=== PATIENT | female | born 2000 | race African-American/Black ===

== ENCOUNTER → 2019-10-18 12:48 | Emergency (ER) | payer SELFPAY ==
--- NOTE | ~2019-10-18 | CT_ITS ---
EXAMINATION: CT soft tissue neck w con DATE: 10/18/2019 13:59 INDICATION: Neck pain and swelling. Injury. TECHNIQUE: Computed tomography (CT) of the neck was performed with 75 mL Omnipaque-350 intravenous co ntrast. Automated exposure control and iterative reconstruction technique were employed. The dose-js gth product was 644.59 mGy-cm. COMPARISON: None FINDINGS: There are no pathologically enlarged lymph nodes. The neck arteries are normal. The pharyng eal mucosal space and larynx are normal. There is mild mucosal thickening in the paranasal sinuses. T here are carious lesions of teeth 1, 15, 16, and 32. IMPRESSION: 1. Dental disease. Reviewed, dictated and finalized at location A. IMPRESSION: 1. Dental disease.
[2019-10-18 12:54] VITALS: BP 137/80; PULSE 89; RESP 16; TEMP 36.3; O2SAT 98
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
[2019-10-18 13:55] LABS: Estimated Glomerular Filt Rate > 60
[2019-10-18] MEDS: IBUPROFEN 600 MG TABLET PO (14:55)
== END | disposition home or self-care (01) ==
PROVIDERS: Emergency Provider Emergency Medicine
DX: S10.93XA Contusion of unspecified part of neck, initial encounter (principal); K02.9 Dental caries, unspecified; V68.6XXA Passenger in heavy transport vehicle injured in noncollision transport accident in traffic accident, initial encounter
CPT/HCPCS: 70491; 99284; A9270; Q9967

== ENCOUNTER 2020-01-31 09:45 | Emergency (ER) | payer OTHER, SELFPAY ==
--- NOTE | ~2020-01-31 | XR_ITS ---
EXAMINATION: XR chest 1V portable DATE: 01/31/2020 10:33 INDICATION: Pneumonia. TECHNIQUE: A single frontal view of the chest was obtained. COMPARISON: None. FINDINGS: Sensitivity is decreased by obesity. The chest demonstrates clear lungs without pneumonia, pleural effusion, or pneumothorax. The heart size is normal. IMPRESSION: 1. No acute cardiopulmonary disease. Reviewed, dictated and finalized at location A. HEMMER
[2020-01-31 10:05] VITALS: BP 128/84; PULSE 99; RESP 14; TEMP 37; O2SAT 99
--- NOTE | 2020-01-31 10:54 | ED.GENADULT ---
HPI - General Adult General Chief complaint: Upper Respiratory Infection Stated complaint: head congestion, covid exposure Time Seen by Provider: 01/31/20 09:55 Source: patient Mode of arrival: ambulatory Limitations: no limitations History of Present Illness HPI narrative: Patient presents with chief complaint of sinus congestion over the past 2 to 3 days. Patient states yesterday she was exposed to a family member who tested positive for Covid. Patient states that she is concerned that she has Covid as well. Patient denies fever, chills, nausea, vomiting, shortness of breath, chest pain. Patient denies any other symptoms. Related Data Home Medications Medication Instructions Recorded Confirmed No Home Medications 01/31/20 01/31/20 Allergies Allergy/AdvReac Type Severity Reaction Status Date / Time No Known Allergies Allergy Verified 10/18/19 12:53 Review of Systems Review of Systems: Narrative: CONSTITUTIONAL: Denies fever, chills, or sweats. EYES: Denies visual changes, redness, or discharge. ENT: Reports congestion denies rhinorrhea, sore throat, or otalgia. CARDIOVASCULAR: Denies chest pain, palpitations, or edema. RESPIRATORY: Denies cough or dyspnea. GASTROINTESTINAL: Denies abdominal pain, nausea, vomiting, or diarrhea. GENITOURINARY: Denies dysuria or hematuria. SKIN: Denies rash or itching. MUSCULOSKELETAL: Denies back pain, joint pain, or myalgia. NEUROLOGIC: Denies headache, numbness, dizziness, or weakness. PSYCHIATRIC: Denies anxiety or depression. PMFSH Past Medical History Medical History (Updated 01/31/20 @ 11:39 by Fely Mallory PA-C) Patient denies significant medical history Social History Social History (Updated 10/18/19 @ 13:05 by Harshad Pascal DO) Smoking status: Never smoker Exam Narrative: Exam Narrative: GENERAL: Well-appearing, well-nourished, and in no acute distress. Morbidly obese. HEAD: Normocephalic, atraumatic. EYES: PERRLA and EOMI. NECK: Supple. No adenopathy or masses. Range of motion intact CHEST: Clear to auscultation. No respiratory distress. No wheezes rales or rhonchi HEART: Regular rate and rhythm. EXTREMITIES: Normal range of motion. No edema. SKIN: Warm, dry, no rash. NEURO: No focal deficits. Alert and oriented x3. PSYCH: Normal mood and affect. Course Vital Signs Vital signs: Vital Signs Temperature 98.6 F 01/31/20 10:05 Pulse Rate 99 01/31/20 10:05 Respiratory Rate 14 01/31/20 10:05 Blood Pressure 128/84 01/31/20 10:05 Pulse Oximetry 99 01/31/20 10:05 Temperature 98.6 F 01/31/20 10:05 Pulse Rate 99 01/31/20 10:05 Respiratory Rate 14 01/31/20 10:05 Blood Pressure 128/84 01/31/20 10:05 Pulse Oximetry 99 01/31/20 10:05 Medical Decision Making MDM Narrative Medical decision making narrative: Discussed with patient that if she is already been exposed in the past few days she still needs to quarantine until released by the health department as even if her Covid test is negative from today she can still develop symptoms later. Patient verbalized understanding agreement plan denies any other questions or concerns. Differential Diagnosis Differential Diagnosis: Covid, pneumonia, sinusitis, influenza Vital Signs Vital Signs: Vital Signs Temperature 98.6 F 01/31/20 10:05 Pulse Rate 99 01/31/20 10:05 Respiratory Rate 14 01/31/20 10:05 Blood Pressure 128/84 01/31/20 10:05 Pulse Oximetry 99 01/31/20 10:05 Temperature 98.6 F 01/31/20 10:05 Pulse Rate 99 01/31/20 10:05 Respiratory Rate 14 01/31/20 10:05 Blood Pressure 128/84 01/31/20 10:05 Pulse Oximetry 99 01/31/20 10:05 Lab Data Labs: Lab Results 01/31/20 Range/Units 10:14 SARS-CoV-2 RNA (RT-PCR) Pending [facility] Bedside Result Negative Reference Range: Negative Influenza A Screen Negative
[2020-01-31 11:40] VITALS: BP 127/64; PULSE 72; RESP 12; O2SAT 99
[2020-01-31 18:06] LABS: SARS-CoV-2 RNA PCR Positive
== END 2020-01-31 11:50 | disposition home or self-care (01) ==
PROVIDERS: Physician Assistant; Emergency Provider Emergency Medicine
DX: U07.1 COVID-19 (principal)
CPT/HCPCS: 71045; 81025; 87635; 87804; 99283; C9803; U0003

== ENCOUNTER 2020-11-25 20:12 | Emergency (ER) | payer SELFPAY ==
--- NOTE | ~2020-11-25 | XR_ITS ---
EXAMINATION: XR knee RT 3V DATE: 11/25/2020 21:19 INDICATION: Right knee injury and pain. TECHNIQUE: 3 views of right knee on 4 radiographs were obtained. COMPARISON: None. FINDINGS: Bone alignment is normal. No fracture. There is mild tricompartmental osteoarthritis charac terized by tiny marginal osteophytes. No knee joint effusion. IMPRESSION: 1. Mild right knee osteoarthritis. Reviewed, dictated and finalized at location A.
[2020-11-25 20:57] VITALS: BP 122/72; PULSE 84; RESP 18; TEMP 36.6; O2SAT 100
--- NOTE | 2020-11-25 21:36 | ED.LOWEXIN ---
HPI - Extremity Injury (Lower) General Chief Complaint: Extremity Injury, Lower Stated Complaint: leg pain Time Seen by Provider: 11/25/20 21:20 Source: RN notes reviewed History of Present Illness HPI Narrative: Patient presents emergency department from home for right knee pain. Patient states she works [employer] last night struck her right knee on a cabinet [place] she states that since that time she is had pain in her right knee is worse with bending the knee and standing on the knee she states it is associated with tingling down into her left pinky toe she denies any pain in the ankle or the hip states she not taking medication for pain denies any other symptoms at this time Related Data Allergies Allergy/AdvReac Type Severity Reaction Status Date / Time No Known Allergies Allergy Verified 10/18/19 12:53 Review of Systems Review of Systems: Gen.: Denies fevers or chills Musculoskeletal: See HPI Neuro: Denies numbness, tingling, weakness Skin: Denies rash Endo: Denies DM PMFSH Past Medical History Medical History Patient denies significant medical history Social History Social History Smoking status: Never smoker Exam Narrative: APPEARANCE: No acute distress, nontoxic, resting in bed Eyes: EOMI HEENT: Normocephalic, atraumatic, RESPIRATORY: No respiratory distress MUSCULOSKELETAl: Tender palpation of the right anterior lateral knee no swelling or ecchymosis pain with flexion of the greater than 45 degrees no tenderness of the right ankle or hip neurovascular intact NEURO: Awake and alert. Following commands, speech normal, no focal deficits SKIN:: Warm, dry. Normal Color no rash or lesions Course Course Emergency Course: Discussed with patient results of workup and diagnosis. Discussed need for follow-up with primary care, proper use of medication, and reasons to return to the emergency department. Patient understands and agrees to current treatment plan Vital Signs Vital signs: Vital Signs Temperature 97.8 F 11/25/20 20:57 Pulse Rate 84 11/25/20 20:57 Respiratory Rate 18 11/25/20 20:57 Blood Pressure 122/72 11/25/20 20:57 Pulse Oximetry 100 11/25/20 20:57 Temperature 97.8 F 11/25/20 20:57 Pulse Rate 84 11/25/20 20:57 Respiratory Rate 18 11/25/20 20:57 Blood Pressure 122/72 11/25/20 20:57 Pulse Oximetry 100 11/25/20 20:57 MDM - Extremity Injury (Lower) Imaging Data Radiologist's impression: ITS Impressions Knee X-Ray 11/25/20 21:21 IMPRESSION: 1. Mild right knee osteoarthritis. Discharge Plan Discharge Clinical Impression: Contusion of knee, right Patient Disposition: Home, Self-Care Condition: Stable Instructions: Antibiotic Form, Contusion in Adults (ED) Additional Instructions: Return for increasing pain numbness or tingling in the extremities or any other symptoms of concern Prescriptions: New ibuprofen [IBU] 600 mg tablet 600 mg PO Q6H PRN (Reason: pain) Qty: 20 RF: 0 Follow-up/Referrals: PHYSICIAN,SURGICAL DRESSING MAKER [Primary Care Provider] - Laz Abdi MD [Physician] - (Follow-up in 1 to 2 days for further orthopedic treatment and evaluation) Time of Disposition: 21:40
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
== END 2020-11-25 22:01 | disposition home or self-care (01) ==
LOC: ANHED 21:50
PROVIDERS: Emergency Provider Emergency Medicine
DX: S80.01XA Contusion of right knee, initial encounter (principal); W22.09XA Striking against other stationary object, initial encounter
CPT/HCPCS: 73562; 99283

== ENCOUNTER 2021-02-17 11:45 | Emergency (ER) | payer SELFPAY ==
[2021-02-17 12:07] VITALS: BP 120/51; PULSE 112; RESP 17; TEMP 36.8; O2SAT 98
--- NOTE | 2021-02-17 12:44 | ED.URI ---
HPI - URI/Sore Throat General Chief Complaint: Upper Respiratory Infection <Razia Painter PA-C - Last Filed: 02/17/21 13:04> Stated Complaint: le, nasal congestion, diarrhea <CARINE Turner Last Filed: 02/17/21 13:04> Time Seen by Provider: 02/17/21 12:25 <CARINE Turner Last Filed: 02/17/21 13:04> Source: patient <CARINE Turner Last Filed: 02/17/21 13:04> Mode of arrival: ambulatory <CARINE Turner Last Filed: 02/17/21 13:04> Limitations: no limitations <CARINE Turner Last Filed: 02/17/21 13:04> History of Present Illness HPI Narrative: This is a 20 year old female that presents to the ER for cold symptoms noted over the last 3 days. Reporting chills, cough, congestion, sore throat. She recently was exposed to COVID. She is COVID vaccinated. Denies fever or shortness of breath. <CARINE Turner Last Filed: 02/17/21 13:04> Related Data Allergies/Adverse Reactions: Allergies Allergy/AdvReac Type Severity Reaction Status Date / Time No Known Allergies Allergy Verified 02/17/21 12:10 <CARINE Turner Last Filed: 02/17/21 13:04> Review of Systems Review of Systems: CONSTITUTIONAL: Denies fever ENT: Reports rhinorrhea, congestion, sore throat RESPIRATORY: Reports cough. Denies dyspnea. <CARINE Turner Last Filed: 02/17/21 13:04> All systems reviewed & are unremarkable except as noted in HPI and below <CARINE Turner Last Filed: 02/17/21 13:04> PMFSH Past Medical History Medical History: Medical History Patient denies significant medical history <CARINE Turner Last Filed: 02/17/21 13:04> Social History Social History: Social History Smoking status: Never smoker <Razia Painter PA-C - Last Filed: 02/17/21 13:04> Exam Narrative: GENERAL: Well-appearing, well-nourished, and in no acute distress. HEAD: Normocephalic, atraumatic. EYES: EOMI. ENT: Nares clear, no rhinorrhea or epistaxis. Mucous membranes moist. Oropharynx without tonsillar hypertrophy exudate or other lesions. Bilateral TMs pearly ardon non-bulging NECK: Supple. No adenopathy or masses. CHEST: Clear to auscultation. No respiratory distress. No wheezes rales or rhonchi HEART: Regular rate and rhythm. No murmur heard. Normal peripheral pulses. EXTREMITIES: Normal range of motion. No edema. SKIN: Warm, dry, no rash. NEURO: No focal deficits. Alert and oriented x3. PSYCH: Normal mood and affect <Razia Painter PA-C - Last Filed: 02/17/21 13:04> Course Vital Signs Vital signs: Vital Signs Temperature 36.8 C 02/17/21 12:07 Pulse Rate 112 H 02/17/21 12:07 Respiratory Rate 17 02/17/21 12:07 Blood Pressure 120/51 L 02/17/21 12:07 Pulse Oximetry 98 02/17/21 12:07 Temperature 36.8 C 02/17/21 12:07 Pulse Rate 72 02/17/21 13:16 Respiratory Rate 16 02/17/21 13:16 Blood Pressure 138/78 02/17/21 13:16 Pulse Oximetry 99 02/17/21 13:16 <Razia Painter PA-C - Last Filed: 02/17/21 13:04> MDM - URI/Sore Throat MDM Narrative Medical decision making narrative: Patient presents emergency department for cold symptoms present over the last couple of days. Reports exposure to Covid. She is vaccinated. Oxygen saturation is normal on room air. Lungs are clear on exam. Influenza screen is negative. SARS-CoV-2 was sent. Patient was instructed on continued care of viral infection. She is to follow-up with primary care doctor. She was given warnings to return to the ER <Razia Painter PA-C - Last Filed: 02/17/21 13:04> Lab Data Attestation: I reviewed the patient's lab results. <Razia Painter PA-C - Last Filed: 02/17/21 13:04> Labs: Lab Results 02/17/21 Range/Units 12:32 SARS-CoV-2 RNA (RT-PCR) Pending Influenza A
[2021-02-17 13:16] VITALS: BP 138/78; PULSE 72; RESP 16; O2SAT 99
[2021-02-17 21:22] LABS: SARS-CoV-2 RNA PCR Positive
== END 2021-02-17 13:17 | disposition home or self-care (01) ==
PROVIDERS: Physician Assistant; Emergency Provider Emergency Medicine
DX: U07.1 COVID-19 (principal)
CPT/HCPCS: 87804; 99283; C9803; U0003; U0005

== ENCOUNTER 2021-11-04 21:07 | Emergency (ER) | payer OTHER, MEDICAID, SELFPAY ==
--- NOTE | ~2021-11-04 | CT_ITS ---
EXAMINATION: CT lumbar spine wo con DATE: 11/04/2021 23:09 INDICATION: Low back pain. Injury. TECHNIQUE: Computed tomography (CT) of the lumbar spine was performed without intravenous contrast. A utomated exposure control and iterative reconstruction technique were employed. The dose-length produ ct was 1436.52 mGy-cm. COMPARISON: None FINDINGS: There is 3 degrees dextrocurvature of thoracolumbar spine. Vertebral body heights are ruben l. Intervertebral disc heights are normal. The following disc levels are specifically discussed: L1-L2: The disc does not extend beyond the endplate margin. There is moderate bilateral facet joint o steoarthritis. There is no neural foraminal stenosis. There is no central canal stenosis. L2-L3: The disc does not extend beyond the endplate margin. There is mild bilateral facet joint osteo arthritis. There is no neural foraminal stenosis. There is no central canal stenosis. L3-L4: The disc does not extend beyond the endplate margin. There is mild bilateral facet joint osteo arthritis. There is no neural foraminal stenosis. There is no central canal stenosis. L4-L5: The disc does not extend beyond the endplate margin. There is mild bilateral facet joint osteo arthritis. There is no neural foraminal stenosis. There is no central canal stenosis. L5-S1: There is a left foraminal protrusion. There is mild bilateral facet joint osteoarthritis. Ther e is mild left neural foraminal stenosis. There is no central canal stenosis. IMPRESSION: 1. Mild lumbar spondylosis. Reviewed, dictated and finalized at location A. IMPRESSION: 1. Mild lumbar spondylosis.
[2021-11-04 21:24] VITALS: BP 122/64; PULSE 89; RESP 16; TEMP 36.6; O2SAT 99
[2021-11-04 22:04] VITALS: BP 134/78; PULSE 96; RESP 20; O2SAT 100
[2021-11-04 22:39] LABS: Basophils Percent Auto 0.2 % (0.2-1.2); Eosinophils Absolute Auto 0.1 K/mm3 (0-0.3); Eosinophils Percent Auto 2.8 % (0-4.4); Hematocrit 38.7 % (37.0-47.0); Hemoglobin 12.8 g/dL (12.0-15.0); Immature Granulocyte Absolute 0.01 K/mm3 (0.00-0.031); Immature Granulocyte Percent A 0.2 % (0-0.5); Lymphocytes Absolute Auto 2.36 K/mm3 (0.9-3.2); Lymphocytes Percent Auto 50.5 % (18.3-44.2); Mean Corpuscular HGB Conc 33.1 g/dl (32-36); Mean Corpuscular Volume 87.6 fl (80-100); Mean Platelet Volume 10.3 fl (7.4-10.4); Monocytes Absolute Auto 0.5 K/mm3 (0.1-0.6); Monocytes Percent Auto 9.6 % (2.6-8.5); Neutrophils Absolute Auto 1.7 K/mm3 (1.3-6.7); Neutrophils Percent Auto 36.7 % (45.5-73.1); Platelet Count Result 240 k/mm3 (150-375); Red Blood Count 4.42 M/mm3 (4.2-5.4); Red Cell Distribution Width 12.7 % (11.5-14.5); White Blood Count 4.7 K/mm3 (4.5-10.0)
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
[2021-11-04 22:48] LABS: Anion Gap 13 mmol/L (8-16); Blood Urea Nitrogen 9 mg/dL (7-17); Calcium 8.2 mg/dL (8.4-10.2); Carbon Dioxide 26 mmol/L (22-30); Chloride 102 mmol/L (98-107); Estimated CRCL calculation 171 ml/min; Estimated Glomerular Filt Rate > 60; Glucose 116 mg/dL (65-110); Potassium 3.4 mmol/L (3.4-5.0); Sodium 141 mmol/L (137-145)
[2021-11-04] MEDS: ACETAMINOPHEN 500 MG TABLET 1000 MG PO (22:48)
[2021-11-04] MEDS: diazePAM INJ (*CRX) 10 MG/2 ML SYRINGE 5 MG IM (22:49)
[2021-11-04 22:50] LABS: INR 1.1; Prothrombin Time 13.4 Seconds (11.1-14.7)
[2021-11-04 22:51] LABS: Partial Thromboplastin Time 30.7 SECONDS (22.3-36.8)
[2021-11-05 00:38] LABS: Creatine Kinase 468 U/L (30-135)
[2021-11-05] MEDS: SODIUM CHLORIDE 0.9% IV 1,000 ML 999 ML IV CONT (01:08)
[2021-11-05 01:11] LABS: Appearance Urine Slightly Cloudy (Clear); Bilirubin Urine Negative (Negative); Blood Urine 1+ (Negative); Color Urine Yellow (Yellow); Glucose Urine UA Negative (Negative); Ketones Urine Negative (Negative); Leukocyte Esterase Ur Negative LEU/UL (Negative); Nitrate Urine Negative (Negative); Protein Urine Trace mg/dL (Negative); Specific Grav Ur >= 1.030 (1.001-1.035); Urobilinogen Urine 0.2 mg/dL (<2.0)
[2021-11-05 01:21] LABS: Bacteria Urine Trace /hpf; Calcium Oxalate Crystals Urine Present /hpf; Mucus Urine Heavy /lpf; RBC Urine 21-50 /hpf (0-2); Squamous Epithelial Cell Urine Many /hpf (Few)
[2021-11-05 01:22] LABS: Add Urine Microscopic? YES
[2021-11-05] MEDS: ENOXAPARIN 120 MG/0.8 ML SYRINGE SUB-Q (02:13)
[2021-11-05] MEDS: ENOXAPARIN 30 MG/0.3 ML SYRINGE SUB-Q (02:14)
== END 2021-11-05 02:10 | disposition home or self-care (01) ==
PROVIDERS: Physician Assistant; Emergency Provider General Practice
DX: M79.89 Other specified soft tissue disorders (principal); M54.50 Low back pain, unspecified
CPT/HCPCS: 36415; 72131; 80048; 81001; 81025; 82550; 85025; 85610; 85730; 87086; 87088; 96360; 96372; 99284; A9270; J1650; J3360; J7030

== ENCOUNTER 2021-11-06 16:53 | Outpatient (CLI) | payer MEDICAID, SELFPAY ==
--- NOTE | ~2021-11-06 | US_ITS ---
EXAMINATION:US venous doppler LE BI INDICATION:Leg edema TECHNIQUE: Multiple grayscale, color flow and Doppler images of the right and left lower extremity de ep venous systems were obtained and reviewed. COMPARISON:No prior studies for comparison. FINDINGS: The common femoral, superficial femoral and popliteal veins demonstrate normal respiratory variation, augmentation and compressibility. Color flow is also seen within the posterior tibial, pe roneal, greater saphenous and profunda veins. IMPRESSION: 1: No lower extremity deep venous thrombosis. Reviewed, dictated and finalized at location A.
== END 2021-11-06 16:54 | disposition home or self-care (01) ==
PROVIDERS: Visit Provider Family Medicine
DX: M79.89 Other specified soft tissue disorders (principal)
CPT/HCPCS: 93970

== ENCOUNTER 2022-06-29 11:49 | Emergency (ER) | payer OTHER, SELFPAY ==
--- NOTE | ~2022-06-29 | XR_ITS ---
EXAMINATION: XR chest 2V DATE: 06/29/2022 12:27 INDICATION: Chest tightness. TECHNIQUE: Frontal and lateral views of the chest were obtained on 3 radiographs. COMPARISON: Chest single view 01/31/2020 FINDINGS: Sensitivity is decreased by obesity. There is no pneumonia, pleural effusion, or pneumothor ax. The heart size is normal. IMPRESSION: 1. No acute cardiopulmonary disease. Reviewed, dictated and finalized at location A.
[2022-06-29 11:48] VITALS: BP 130/75; PULSE 75; RESP 16; TEMP 36.6; O2SAT 94
--- NOTE | 2022-06-29 11:53 | ECG_ITS ---
Measurements Intervals [place] Rate: 67 P: 39 VA: 202 QRS: 42 QRSD: 94 T: 28 QT: 403 QTc: 428 Interpretive Statements SINUS RHYTHM MINIMAL Q WAVES- INFERIOR LEADS BORDERLINE ECG NO PREVIOUS ECG AVAILABLE FOR COMPARISON Electronically Signed On 06-29-2022 12:16:40 CDT by Osbaldo Lauren D.O.
[2022-06-29] MEDS: ASPIRIN 81 MG CHEWABLE TABLET 324 MG PO (12:06)
[2022-06-29 12:10] VITALS: O2SAT 100
[2022-06-29 12:12] LABS: Basophils Percent Auto 0.4 % (0.2-1.2); Eosinophils Absolute Auto 0.2 K/mm3 (0-0.3); Hematocrit 42.8 % (37.0-47.0); Immature Granulocyte Absolute 0.01 K/mm3 (0.00-0.031); Immature Granulocyte Percent A 0.2 % (0-0.5); Lymphocytes Absolute Auto 2.13 K/mm3 (0.9-3.2); Lymphocytes Percent Auto 42.9 % (18.3-44.2); Mean Corpuscular HGB Conc 32.7 g/dl (32-36); Mean Corpuscular Hemoglobin 28.7 pg (26-34); Mean Corpuscular Volume 87.9 fl (80-100); Mean Platelet Volume 10.2 fl (7.4-10.4); Monocytes Absolute Auto 0.7 K/mm3 (0.1-0.6); Monocytes Percent Auto 14.9 % (2.6-8.5); Neutrophils Absolute Auto 1.9 K/mm3 (1.3-6.7); Neutrophils Percent Auto 37.6 % (45.5-73.1); Platelet Count Result 221 k/mm3 (150-375); Red Blood Count 4.87 M/mm3 (4.2-5.4); Red Cell Distribution Width 12.8 % (11.5-14.5)
[2022-06-29 12:22] LABS: Alanine Aminotransferase 21 U/L (6-35); Alkaline Phosphatase 80 U/L (38-126); Anion Gap 3 mmol/L (8-16); Aspartate Amino Transferase 35 U/L (14-36); Bilirubin,Total 0.3 mg/dL (0.2-1.3); Blood Urea Nitrogen 8 mg/dL (7-17); Calcium 8.7 mg/dL (8.4-10.2); Carbon Dioxide 32 mmol/L (22-30); Chloride 102 mmol/L (98-107); Estimated CRCL calculation 198 ml/min; Estimated Glomerular Filt Rate > 60; Glucose 82 mg/dL (65-110); Lipase 85 U/L (23-300); Potassium 3.8 mmol/L (3.4-5.0); Sodium 137 mmol/L (137-145)
[2022-06-29 12:33] LABS: Troponin I < 0.012 ng/mL (0.000-0.034)
--- NOTE | 2022-06-29 13:05 | ED.GENADULT ---
HPI - General Adult General Chief complaint: Chest Pain Stated complaint: chest tightness Time Seen by Provider: 06/29/22 12:02 History of Present Illness HPI narrative: Patient is a 22-year-old female who presents ER with reports of headache. Began prior to arrival. Aching frontal and then began to move into her chest which concerned her. No exertional chest pain or shortness of breath. Initially thought it might be an anxiety attack but was not having anxiety. Denies fevers or chills or sweats. No chest discomfort at this time life frontal throbbing headache that is not sudden onset/thunderclap. No fevers or chills or sweats. Related Data Home Medications Medication Instructions Recorded Confirmed No Home Medications 06/29/22 06/29/22 Allergies Allergy/AdvReac Type Severity Reaction Status Date / Time No Known Allergies Allergy Verified 06/29/22 13:11 Review of Systems Review of Systems: All systems reviewed & are unremarkable except as noted in HPI and below Constitutional: Constitutional: Denies chills, Denies fatigue and Denies fever(s) ENT: Reports nasal congestion and Denies sore throat Cardiovascular: Cardiovascular: Reports chest pain, Denies radiating jaw, neck or arm pain and Denies slow heart rate Respiratory: Respiratory: Denies cough and Denies dyspnea Gastrointestinal: Gastrointestinal: Denies abdominal pain, Denies nausea and Denies vomiting PMFSH Past Medical History Medical History (Updated 06/29/22 @ 16:10 by Steven Rivera MD) Patient denies significant medical history Surgical History Surgical History (Updated 06/29/22 @ 13:17 by Steven Rivera MD) No pertinent past surgical history Social History Social History Smoking status: Never smoker Exam Narrative: GENERAL: Well-appearing, morbidly obese, and in no acute distress. HEAD: Normocephalic, atraumatic. EYES: PERRL and EOMI. ENT: Mucous membranes moist. CHEST: Clear to auscultation. No respiratory distress. HEART: Regular rate and rhythm. Normal peripheral pulses. ABDOMEN: Soft, nontender, nondistended. EXTREMITIES: Normal range of motion. No edema. SKIN: Warm, dry, no rash. NEURO: Alert and oriented x3. PSYCH: Normal mood and affect. Course Course Emergency Course: Patient resting comfortably. Troponin negative x2. Discharge home. Vital Signs Vital signs: Vital Signs Temperature 97.8 F 06/29/22 11:48 Pulse Rate 75 06/29/22 11:48 Respiratory Rate 16 06/29/22 11:48 Blood Pressure 130/75 06/29/22 11:48 Pulse Oximetry 94 06/29/22 11:48 Oxygen Delivery Room Air 06/29/22 11:48 Temperature 97.8 F 06/29/22 11:48 Pulse Rate 72 06/29/22 15:19 Respiratory Rate 18 06/29/22 15:19 Blood Pressure 129/86 06/29/22 15:19 Pulse Oximetry 97 06/29/22 15:33 Oxygen Delivery Room Air 06/29/22 12:10 Medical Decision Making Vital Signs Vital Signs: Vital Signs Temperature 97.8 F 06/29/22 11:48 Pulse Rate 75 06/29/22 11:48 Respiratory Rate 16 06/29/22 11:48 Blood Pressure 130/75 06/29/22 11:48 Pulse Oximetry 94 06/29/22 11:48 Oxygen Delivery Room Air 06/29/22 11:48 Temperature 97.8 F 06/29/22 11:48 Pulse Rate 72 06/29/22 15:19 Respiratory Rate 18 06/29/22 15:19 Blood Pressure 129/86 06/29/22 15:19 Pulse Oximetry 97 06/29/22 15:33 Oxygen Delivery Room Air 06/29/22 12:10 Lab Data 06/29/22 12:06 06/29/22 12:05 Labs: Lab Results 06/29/22 06/29/22 06/29/22 Range/Units 12:05 12:06 14:57 WBC 5.0 (4.5-10.0) K/mm3 RBC 4.87 (4.2-5.4) M/mm3 Hgb 14.0 (12.0-15.0) g/dL Hct 42.8 (37.0-47.0) % MCV 87.9 (80-100) fl MCH 28.7 (26-34) pg MCHC 32.7 (32-36) g/dl RDW 12.8 (11.5-14.5) % Plt Count 221 (150-375) k/mm3 MPV 10.2 (7.4-10.4) fl Immature Gran % (Auto) 0.2 (0-0.5)
[2022-06-29 13:07] VITALS: BP 138/87; PULSE 72; RESP 19; O2SAT 99
[2022-06-29] MEDS: KETOROLAC 30 MG/ML VIAL (*BKC) IV PUSH (13:09)
[2022-06-29 14:15] LABS: INR 0.9; Prothrombin Time 13.1 Seconds (11.1-14.7)
[2022-06-29 14:16] LABS: Partial Thromboplastin Time 29.3 SECONDS (22.3-36.8)
[2022-06-29 15:19] VITALS: BP 129/86; PULSE 72; RESP 18; O2SAT 100
[2022-06-29 15:33] VITALS: O2SAT 97
[2022-06-29 15:40] LABS: Troponin I < 0.012 ng/mL (0.000-0.034)
[2022-06-29 16:20] VITALS: BP 144/98; PULSE 61; RESP 18; O2SAT 100
== END 2022-06-29 16:21 | disposition home or self-care (01) ==
PROVIDERS: Emergency Medicine; Emergency Provider Emergency Medicine
DX: R51.9 Headache, unspecified (principal); R07.89 Other chest pain
CPT/HCPCS: 36415; 71046; 80053; 83690; 84484; 85025; 85610; 85730; 93005; 96374; 99284; A9270; J1885

== ENCOUNTER 2023-07-03 22:58 | Emergency (ER) | payer SELFPAY ==
[2023-07-03 23:02] VITALS: BP 143/65; PULSE 104; RESP 20; TEMP 36.4; O2SAT 98
--- NOTE | 2023-07-03 23:06 | ED.EAR ---
HPI - Ear Problem General Chief complaint: Ear Stated complaint: I have two ear infections Time Seen by Provider: 07/03/23 23:01 History of Present Illness HPI Narrative: 23-year-old female presents to the emergency department for bilateral ear pain and concerns for an ear infection. Patient states yesterday she began having pain and fullness in her left ear and then woke up this morning with pain in her right ear. Her right ear is now draining. States she has history many ear infections with the was a child in her ears feel like she has an ear infection. She denies fever, cough or congestion, sore throat. Related Data Allergies Allergy/AdvReac Type Severity Reaction Status Date / Time No Known Allergies Allergy Verified 07/03/23 23:04 Review of Systems Review of Systems: CONSTITUTIONAL: Denies fever, chills, or sweats. EYES: Denies visual changes, redness, or discharge. ENT: See HPI CARDIOVASCULAR: Denies chest pain, palpitations, or edema. RESPIRATORY: Denies cough or dyspnea. GASTROINTESTINAL: Denies abdominal pain, nausea, vomiting, or diarrhea. GENITOURINARY: Denies dysuria or hematuria. SKIN: Denies rash or itching. MUSCULOSKELETAL: Denies back pain, joint pain, or myalgia. NEUROLOGIC: Denies headache, numbness, or weakness. PSYCHIATRIC: Denies anxiety or depression. PMFSH Past Medical History Medical History Patient denies significant medical history Surgical History Surgical History No pertinent past surgical history Social History Social History Smoking status: Never smoker Exam Narrative: GENERAL: Well-appearing, well-nourished, and in no acute distress. HEAD: Normocephalic, atraumatic. EYES: PERRLA and EOMI. ENT: Nares clear, no rhinorrhea or epistaxis. Mucous membranes moist. Bilateral TMs erythematous, injected, bulging, dull consistent with AOM. Bilateral canals with white otorrhea, no erythema or cellulitis. No pain with movement of or colles. No mass or tenderness. NECK: Supple. CHEST: Clear to auscultation. No respiratory distress. HEART: Regular rate and rhythm. No murmur heard. Normal peripheral pulses. ABDOMEN: Soft, nontender, nondistended, normal active bowel sounds. EXTREMITIES: Normal range of motion. No edema. SKIN: Warm, dry, no rash. NEURO: No focal deficits. Alert and oriented x3 Course Vital Signs Vital signs: Vital Signs Temperature 97.5 F L 07/03/23 23:02 Pulse Rate 104 H 07/03/23 23:02 Respiratory Rate 20 07/03/23 23:02 Blood Pressure 143/65 H 07/03/23 23:02 Pulse Oximetry 98 07/03/23 23:02 Oxygen Delivery Room Air 07/03/23 23:02 Temperature 97.5 F L 07/03/23 23:02 Pulse Rate 104 H 07/03/23 23:02 Respiratory Rate 20 07/03/23 23:02 Blood Pressure 143/65 H 07/03/23 23:02 Pulse Oximetry 98 07/03/23 23:02 Oxygen Delivery Room Air 07/03/23 23:02 Medical Decision Making [facility] Narrative Medical decision making narrative: 23-year-old female presents emergency department for bilateral ear pain. Triage vital significant for heart rate of 104. She is afebrile and nontoxic appearing. Exam is significant for the above, concerning for bilateral AOM and bilateral otitis externa. No mastoid tenderness. Feel patient be discharged home with p.o. antibiotics and ptotic drops. First dose of Augmentin provided here. Augmentin and ofloxacin drops and to pharmacy. Advised follow-up with PCP and continuation of ibuprofen. Strict ED return precautions provided. She is agreeable with the plan verbalized understanding. Discharged in stable condition. Vital Signs Vital Signs: Vital Signs Temperature 97.5 F L 07/03/23 23:02 Pulse Rate 104 H 07/03/23 23:02 Respiratory Rate 20 07/03/23 23:02 Blood Pressure 143/65 H 07/03/23 23:02 Pulse Oximetry 98
[2023-07-03] MEDS: AMOXICILLIN/CLAVULANATE K 875-125 MG TAB 1 TABLET PO (23:36)
== END 2023-07-03 23:47 | disposition home or self-care (01) ==
LOC: ANHED 23:39
PROVIDERS: Emergency Provider Physician Assistant
DX: H60.503 Unspecified acute noninfective otitis externa, bilateral (principal); H66.90 Otitis media, unspecified, unspecified ear
CPT/HCPCS: 99283; A9270

== ENCOUNTER 2024-04-11 01:38 | Emergency (ER) | payer SELFPAY ==
[2024-04-11 01:39] VITALS: BP 120/59; PULSE 94; RESP 19; TEMP 36.2; O2SAT 100
--- OUTSIDE RECORDS SUMMARY | 2024-04-11 01:40 | XMS_ITS | Clinical Summary ---
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 Phone None, Provider MD Primary Care Provider Unavaila ble Allergies No known active allergies Social History Tobacco Use Types Packs/Day Years Used Date Smoking Tobacco: Never Smokeless Tobacco: Never Alcohol Use Standard Drinks/Week Comments Not Currently 0 (1 standard drink = 0.6 oz pur e alcohol) Comments No Sex and Gender Information Value Date Recorded Sex Assigned at Not on file Legal Sex Female 8:29 PM CDT Gender Identity Not on file Sexual Orientation Not on file Last Filed Vital Signs Vital Sign Reading Time Taken Comments Blood Pressure 112/76 10/31/2021 8:49 PM CDT Pulse 95 10/31/2021 8:49 PM CDT Temperature 36.4 C (97.6 F) 10/31/2021 5:35 PM CDT Respiratory Rate 18 10/31/2021 8:49 PM CDT Oxygen Saturation 97% 10/31/2021 8:49 PM CDT Inhaled Oxygen Concentration - - Weight 163.3 kg (360 lb) 10/31/2021 5:38 PM CDT Height 170.2 cm (5' 7 ) 10/31/2021 5:38 PM CDT Body Mass Index 56.38 10/31/2021 5:38 PM CDT Plan of Treatment Health Maintenance Due Date Last Done Comments Cervical Cancer Screening Pap Smear (Age 21 to 29) Every 3 Years 1999 Cervical Cancer Screening 1999 Annual Physical 05/04/2002 Hepatitis C 05/04/2017 Meningococcal B Vaccine (2 of 2 - Trumenba SCDM 2-dose series) 01/23/2018 09/23/2017, 07/09/2015 DTaP, Tdap and Td Vaccines (7 - Td or Tdap) 11/04/2020 11/04/2010, 09/30/2004, 01/14/2001, Additional history exists COVID-19 Vaccine ( season) 2023 04/22/2020 Influenza Adult (#1) 2023 11/22/2017, 12/12/2016, 11/22/2015, Additional history exists Pneumococcal Vaccine: Pediatrics (0 to 5 Years) and At-Risk Patients (6 to 64 Years) Aged Out 11/01/2000, 04/30/2000, 1999 No longer eligible based on patient's age to complete this topic Hepatitis B Vaccines Completed 04/30/2010, 04/30/2000, 1999, Additional history exists HPV Vaccines Completed 05/07/2011, 12/17, 11/04/2010 Meningococcal Vaccine Completed 07/09/2015, 011 RSV Immunizations Under 20 Months Aged Out No longer eligible based on patient's age to complete this topic Insurance MEDICAID [employer] Care Teams Welder Apprentice Relationship Specialty Start Date End Date None, Provider, PCP - General 10/31/21
--- OUTSIDE RECORDS SUMMARY | 2024-04-11 01:40 | XMS_ITS | Patient Health Summary ---
Author Organization [facility] Address [address] [place] [address] Care Team Providers Care Property Management Assistant Name Role Phone Brynn Perez MD Primary Care Provider + [phone] Note from [facility],non-owned Affiliates and Associated Physician Practices is amultiple site organization consisting of ambulatory clinics and hospital sitesin [place], [place], [place] and [place]. This disclosure is being madepursuant to the Care Everywhere program and may not contain all information available regarding this patient. Last updated 17.[facility] Allergies No known active allergies Medications * Be aware that medications may not be up to date on this document. Alwaysverify current medications with the patient. * urea (CARMOL;VANAMIDE) 40 % cream(Started 10/31/2018) Apply to affected area two times daily. 11 refills remaining * minocycline (MINOCIN) 100 MG capsule(Started 10/31/2018) Take 1 capsule by mouth 2 times daily 3 refills remaining * ketoconazole (NIZORAL) 2 % shampoo(Started 10/31/2018) Apply to back, use as wash once daily. 30DS 11 refills remaining Active Problems Problem Noted Date Diagnosed Date PCOS (polycystic ovarian syndrome) 11/11/2011 Type II diabetes mellitus 11/11/2011 Body mass index, pediatric, greater than or equal to 95th percentile for age 0809/30/2011 Dermatomycosis 07/01/2011 Acquired acanthosis nigricans 06/30/2011 Attention deficit hyperactivity disorder (ADHD) 06/30/2011 Hypertrophy of tonsils and adenoids 06/25/2011 Sleep apnea 06/04/2011 Syncope and collapse 03/06/2011 Immunizations * INFLUENZA VACCINE, QUADR. (FLUZONE; FLULAVAL; FLUARIX; AFLURIA QUADRIVALENT; 6MO+), 0.5 ML (IIV4)(Given 01/17/2015) Social History Tobacco Use Types Packs/Day Years Used Date Smoking Tobacco: Never Smokeless Tobacco: Never Comments:Aunt Alcohol Use Standard Drinks/Week Comments No 0 (1 standard drink = 0.6 oz pur e alcohol) Sex and Gender Information Value Date Recorded Sex Assigned at Not on file Gender Identity Not on file Sexual Orientation Not on file Last Filed Vital Signs Vital Sign Reading Time Taken Comments Blood Pressure 126/78 10/13/2018 11:14 AM CDT Pulse 93 10/13/2018 11:14 AM CDT Temperature 37.4 C (99.4 F) 07/28/2011 5:05 PM CDT Respiratory Rate 20 10/11/2012 11:2 2 AM CDT Oxygen Saturation 98% 10/13/2018 11: 14 AM CDT Inhaled Oxygen Concentration - - Weight 152.1 kg (335 lb 5.1 oz) 019 11:14 AM CDT Height 174 cm (5' 8.5 ) 10/13/2018 11:1 4 AM CDT Body Mass Index 50.24 10/13/2018 11:14 AM CDT Procedures * SPLIT NIGHT STUDY(Performed 09/26/2017) Performed for Obstructive sleep apnea * FERRITIN(Performed 10/29/2015) Performed for Restless legs syndrome (RLS) * HEMOGLOBIN A1C - POCT (IP) SANJANA(Performed 10/29/2015) Performed for Type 2 diabetes mellitus without complication, without long-term current use of insulin (HCC) * MICROALB/CREAT RATIO URINE RANDOM PANEL(Performed 10/29/2015) Performed for Type 2 diabetes mellitus without complication, without long-term current use of insulin (HCC) * LIPID PROFILE(Performed 10/29/2015) Performed for Type 2 diabetes mellitus without complication, without long-term current use of insulin ([facility]) * BASIC METABOLIC PANEL (CALCIUM TOTAL)(Performed 10/29/2015) Performed for Type 2 diabetes mellitus without complication, without long-term current use of insulin ([facility]) * ALT(Performed 10/29/2015) Performed for Type 2 diabetes mellitus without complication, without long-term current use of insulin ([facility]) * VITAMIN D 25-HYDROXY(Performed 06/25/2015) Performed for Disorder of iron metabolism * FERRITIN(Performed 06/25/2015) Performed for Restless legs syndrome (RLS) * HEMOGLOBIN A1C - POCT (IP) BEAKER(Performed 06/25/2015) Performed for Type 2 diabetes mellitus without complication ([facility]) * FERRITIN(Performed 01/17/2015) Performed for Disorder of iron metabolism * VITAMIN D 25-HYDROXY(Performed 01/17/2015) Performed for Restless sleeper * FSH(Performed 01/17/2015) Performed for PCOS (polycystic ovarian syndrome) * TESTOSTERONE FREE FEM/CHLD HYPOGNDL MALE(Performed 01/17/2015) Performed for PCOS (polycystic ovarian syndrome) * PROLACTIN(Performed 01/17/2015) Performed for PCOS (polycystic ovarian syndrome) * ESTRADIOL ULTRA SENSITIVE(Performed 01/17/2015) Performed for PCOS (polycystic ovarian syndrome) * LH PEDIATRIC(Performed 01/17/2015) Performed for PCOS (polycystic ovarian syndrome) * HEMOGLOBIN A1C - POCT (IP) BEAKER(Performed 01/17/2015) Performed for Type 2 diabetes mellitus ([facility]) * VITAMIN D 25-HYDROXY(Performed 08/03/2014) Performed for Sleep disturbance * IRON + TIBC PANEL(Performed 08/03/2014) Performed for Other disorders of iron metabolism * FERRITIN(Performed 08/03/2014) Performed for Other disorders of iron metabolism * HEMOGLOBIN A1C - POCT (IP) BEAKER(Performed 08/02/2014) Performed for Type 2 diabetes mellitus without complication ([facility]) * MICROALB/CREAT RATIO URINE RANDOM PANEL(Performed 08/02/2014) Performed for Type 2 diabetes mellitus without complication ([facility]) * IRON + TIBC PANEL(Performed 08/31/2013) Performed for Restless legs syndrome (RLS) * FERRITIN(Performed 08/31/2013) Performed for Restless legs syndrome (RLS) * HEMOGLOBIN A1C - POCT (IP) BEAKER(Performed 08/31/2013) Performed for Type 2 diabetes mellitus (HCC) * COMPREHENSIVE METABOLIC PANEL(Performed 04/27/2013) Performed for Type 2 diabetes mellitus (HCC) * MICROALB/CREAT RATIO URINE RANDOM PANEL(Performed 04/27/2013) Performed for Type 2 diabetes mellitus (HCC) * HEMOGLOBIN A1C - POCT (IP) BEAKER(Performed 04/27/2013) Performed for Type 2 diabetes mellitus (HCC) * FERRITIN(Performed 04/27/2013) Performed for Restless legs syndrome (RLS) * IRON + TIBC PANEL(Performed 04/27/2013) Performed for Restless legs syndrome (RLS) * FERRITIN(Performed 10/11/2012) Performed for Restless legs syndrome (RLS) * HEMOGLOBIN A1C - POCT (IP) BEAKER(Performed 10/11/2012) Performed for Type 2 diabetes mellitus (HCC) * FERRITIN(Performed 03/15/2012) Performed for Iron deficiency * MICROALB/CREAT RATIO URINE RANDOM PANEL(Performed 03/15/2012) Performed for Type 2 diabetes mellitus (HCC) * COMPREHENSIVE METABOLIC PANEL(Performed 03/15/2012) Performed for Type 2 diabetes mellitus (HCC) * HEMOGLOBIN A1C - POCT (IP) BEAKER(Performed 03/15/2012) Performed for Type 2 diabetes mellitus (HCC) * LIPID PROFILE(Performed 12/30/2011) Performed for Type 2 diabetes mellitus (HCC) * AMB CONSULT TO MAILING CLERK(Performed 12/29/2011) Performed for Type 2 diabetes mellitus (HCC) * LAB RESULTS ORDER(Performed 11/24/2011) * HEMOGLOBIN A1C - POCT (IP) BEAKER(Performed 11/11/2011) Performed for Other abnormal glucose * GLUCOSE(Performed 11/11/2011) Performed for Other abnormal glucose * HYDROXYPROGESTERONE 17-(Performed 11/11/2011) Performed for PCOS (polycystic ovarian syndrome) * SPLIT NIGHT STUDY(Performed 10/25/2011) * PATHOLOGY/CYTOLOGY REPORT ORDER(Performed 07/30/2011) * GROSS EXAM PATHOLOGY (STL)(Performed 07/28/2011) Performed for Obstructive sleep apnea, Hypertrophy of tonsils and adenoids * TONSILLECTOMY AND ADENOIDECTOMY(Performed 07/28/2011) Performed for Hypertrophy of tonsil with adenoids, Obstructive sleep apnea (adult) (pediatric) * FERRITIN(Performed 07/08/2011) * PEDIATRIC DIAGNOSTIC POLYSOMNOGRAM(Performed 05/25/2011) * EKG 15-LEAD(Performed 03/12/2011) Performed for Syncope and collapse * CARDIAC EKG ORDER(Performed 03/09/2011) * HCG URINE QUALITATIVE(Performed 03/06/2011) * COMPREHENSIVE METABOLIC PANEL(Performed 03/06/2011) * CBC W AUTO DIFFERENTIAL(Performed 03/06/2011) * ECHO CONSULT - PEDIATRIC(Performed 12/11/2010) Performed for Abnormal EKG * XR CHEST 2VW(Performed 11/20/2010) Performed for Family history of heart failure * EKG 15-LEAD(Performed 11/20/2010) Performed for Arrhythmia Results * SPLIT NIGHT STUDY (09/26/2017) [facility] Linked Results See Linked Results SLEEP CENTER 09/26/2017 [facility] O RDERABLES SLEEP [facility] * (ABNORMAL) FERRITIN (10/29/2015 2:27 PM CDT) Only the most recent of9 resultswithin the time period is included. [facility] Ferritin 216(H) 10 - 120 ng/mL 10/29/2015 3:52 PM CDT [facility] Blood BLOOD SPECIMEN / Unknown Lab Venipuncture / Unknown 10/29/2015 2:27 PM CDT 10/29/2015 2:35 PM CDT [facility] Cel[facility] LAB - CHEMISTR Y ORDERABLES [facility] [address] [place] [id number] * (ABNORMAL) HEMOGLOBIN A1C - POCT (IP) BEAKER (10/29/2015 11:54 AM CDT) Only the most recent of9 resultswithin the time period is included. [facility] Hemoglobin A1c POCT 6.6(A) 3.4 - 6.1 % [facility] POCT TESTING QC Verified Yes Yes [facility] PO CT TESTING Blood specimen (specimen) BLOOD SPECIMEN / Unknown 10/29/2015 11:54 AM CDT Irlanda Li MD LAB - POINT OF CARE ORDERABLES Performing Organization Address [facility] Co de Phone Number [facility] POCT TESTING [facility] [phone] * MICROALB/CREAT RATIO URINE RANDOM PANEL (10/29/2015 11:52 AM CDT) Only the most recent of4 resultswithin the time period is included. Creatinine Urine 176.93 mg/dL 10/29/2015 1:46 PM CDT [facility] Microalbumin Urine <0.5 <1.7 mg/dL 10/29/2015 1:46 PM CDT [facility] Microalbumin/Crea tinine Ratio <30 mg/g 10/29/2015 1:46 PM T [facility] Comment: Microalb/Creatinine Ratio= <3 Urine URINE SPECIMEN OBTAINED BY CLEAN CATCH PROCEDURE / Unknown 10/29/2015 11:52 AM CDT 10/29/2015 12:10 PM CDT Irlanda Li MD LAB - URINE CHEMISTR Y ORDERABLES Performing Organization Address [facility] Co de Phone Number [facility] [address] [place] [address] * (ABNORMAL) BASIC METABOLIC PANEL (CALCIUM TOTAL) (10/29/2015 11:52 AM CDT) Glucose 115(H) 70 - 105 mg/dL 10/29/2015 12:52 PM CDT [facility] Sodium 140 136 - 145 mmol/L 10/29/2015 12:52 PM CDT [facility] Potassium 3.8 3.5 - 5.1 mmol/L 10/29/2015 12:52 PM CDT [facility] Chloride 103 98 - 107 mmol/L 10/29/2015 12:52 PM CDT [facility] CO2 27 20 - 28 mmol/L 10/29/2015 12:52 PM CDT [facility] Calcium 9.37 9.08 - 10.48 mg/dL 10/29/2015 12:52 PM CDT [facility] Anion Gap 10 5 - 20 mmol/L 10/29/2015 12:52 PM T [facility] BUN 9.3 5.3 - 18.7 mg/dL 10/29/2015 12:52 PM [facility] Creatinine 0.82 0.61 - 1.07 mg/dL 10/29/2015 12:52 PM T [facility] eGFR by MDRD mL/min/1.7 3m2 10/29/2015 12:52 PM [facility] Comment: eGFR calculations are not performed for children under 18 years old. eGFR by MDRD mL/min/1.7 3m2 10/29/2015 12:52 PM [facility] Comment: eGFR calculations are not performed for children under 18 years old. Blood BLOOD SPECIMEN / Unknown 10/29/2015 11:52 AM CDT 10/29/2015 12:09 PM CDT Irlanda Li MD LAB - CHEMISTRY SLIME MCINTYRE Performing Organization Address City/[facility]/ZIP Co de Phone Number [facility] [address] [place] [phone] * ALT (10/29/2015 11:52 AM CDT) ALT 34 8 - 65 U/L 10/29/2015 12:52 PM T [facility] Blood BLOOD SPECIMEN / Unknown 10/29/2015 11:52 AM CDT 10/29/2015 12:09 PM CDT Irlanda Li MD LAB - CHEMISTRY ORDSantos MCINTYRE Performing Organization Address [facility] Co de Phone Number [facility] [address] [place] [phone] * (ABNORMAL) LIPID PROFILE (10/29/2015 11:52 AM CDT) Only the most recent of2 resultswithin the time period is included. Cholesterol 172(H) <170 mg/dL 10/29/2015 12:51 PM T [facility] Triglycerides 153 46 - 227 mg/dL 10/29/2015 12:51 PM CDT [facility] HDL Cholesterol 50 >40 mg/dL 10/29/2015 12:51 PM CDT [facility] LDL Calculated 91 <100 mg/dL 10/29/2015 12:51 PM T [facility] VLDL Calculated 31 12 - 38 mg/dL 10/29/2015 12:51 PM CDT [facility] Chol HDL Ratio 3.4 <=5.0 10/29/2015 12:51 PM T [facility] Blood BLOOD SPECIMEN / Unknown 10/29/2015 11:52 AM CDT 10/29/2015 12:09 PM CDT Narrative [facility] - 10/29/2015 12:51 PM CDT Lipid Profile Comment: Adult references ranges are the recommendation of the [place] [employer] , for those patients >18 years old. Cholestrol LDL Triglycerides HDL -- -- -- <40 Low <170 <100 <150 Desirable 170-199 130-159 150-199 Borderline High >200 160-189 200-499 >60 High Risk factor status for Coronary Artery Disease is necessary to place these lab findings in perspective. Note: This test is for fasting patients only. A non-fasting state may alter some of these results. Irlanda Li MD LAB - CHEMISTRY SLIME [facility] Organization Address City/State/ZIP Co de Phone Number [facility] [address] [place] [address] * (ABNORMAL) VITAMIN D (25-HYDROXY) (06/25/2015 2:13 PM CDT) Only the most recent of3 resultswithin the time period is included. Vitamin D, 25 Hydroxy 20.14(L) 30 - 100 ng/mL 06/25/2015 7:06 PM T [facility] Blood BLOOD SPECIMEN / Unknown Lab Venipuncture / Unknown 06/25/2015 2:13 PM CDT 06/25/2015 4:03 PM CDT Narrative [facility] - 06/25/2015 7:06 PM CDT Vitamin D Status: Deficiency <20 ng/mL Insufficiency 20-30 ng/mL Sufficiency 30-100 ng/mL Toxicity >100 ng/mL Geri Ellsworth ANTHROPOLOGIST PHYSICAL-UNIT MANAGER LAB - CHEMISTR Y ORDERABLES [facility] [address] [place] [address] * LH PEDIATRIC (01/17/2015 2:23 PM BRUSH OR BROOM CUTTER) [facility] See Scanned Report 01/22/2015 3:23 PM BRUSH OR BROOM CUTTER [facility] Blood specimen (specimen) BLOOD SPECIMEN / Unknown Lab Venipuncture / Unknown 01/17/2015 2:23 PM BRUSH OR BROOM CUTTER 01/17/2015 4:13 PM BRUSH OR BROOM CUTTER Irlanda Li MD LAB - CHEMISTRY SLIME MCINTYRE Performing Organization Address [facility] Co de Phone Number [facility] [address] [place] [address] * ESTRADIOL ULTRA SENSITIVE (01/17/2015 2:23 PM BRUSH OR BROOM CUTTER) [facility] Estradiol Ultrasensitive 47.3 pg/mL 01/21/2015 9:13 AM BRUSH OR BROOM CUTTER [facility] ([facility]) Comment: Reference interval of estradiol in serum of girls. Dao Stage Estradiol I <56.0 II 2.0-133.0 III 12.0-277.0 IV and V 2.0-259.0 Age Group: 7 to 9 <36.0 10 to 12 1.0-87.0 13 to 15 9.0-249.0 16 to 17 2.0-266.0 REFERENCE INTERVAL: Estradiol by TMS Access complete set of age- and/or gender-specific reference intervals for this test in the [facility] Test Directory ([employer]). Test developed and characteristics determined by [employer]. See Compliance Statement B: [employer].Visible Measures/CS Blood specimen (specimen) BLOOD SPECIMEN / Unknown Lab Venipuncture / Unknown 01/17/2015 2:23 PM BRUSH OR BROOM CUTTER 01/17/2015 3:31 PM BRUSH OR BROOM CUTTER Irlanda Li MD LAB - CHEMISTRY SLIME MCINTYRE [place] ([address] * PROLACTIN (01/17/2015 2:23 PM BRUSH OR BROOM CUTTER) [facility] Prolactin 6.61 ng/mL 01/17/2015 6:59 PM BRUSH OR BROOM CUTTER [facility] Blood BLOOD SPECIMEN / Unknown Lab Venipuncture / Unknown 01/17/2015 2:23 PM BRUSH OR BROOM CUTTER 01/17/2015 3:30 PM BRUSH OR BROOM CUTTER Narrative [facility] - 01/17/2015 6:59 PM BRUSH OR BROOM CUTTER Prolactin Reference Interval: Female Non: 2.80 - 29.20 ng/mL Female : 9.70 - 208.50 ng/mL Female Postmenopausal: 1.80 - 20.39 ng/mL Male: 2.10 - 17.70 ng/mL Irlanda Li MD LAB - CHEMISTRY SLIME MCINTYRE Performing Organization Address [facility] Co de Phone Number [facility] [address] [place] [address] * FSH (01/17/2015 2:23 PM BRUSH OR BROOM CUTTER) [facility] FSH 4.22 0.2 - 8.0 mIU/mL 01/17/2015 4:23 PM BRUSH OR BROOM CUTTER [facility] Blood BLOOD SPECIMEN / Unknown Lab Venipuncture / Unknown 01/17/2015 2:23 PM BRUSH OR BROOM CUTTER 01/17/2015 3:30 PM BRUSH OR BROOM CUTTER Narrative [facility] - 01/17/2015 4:23 PM BRUSH OR BROOM CUTTER FSH Reference Range Normal Female Menses: Normally menstruating: Follicular 3.0 - 8.1 mIU/mL Midcycle Peak 2.6 - 16.7 mIU/mL Luteal 1.4 - 5.5 mIU/mL Postmenopausal 26.7 - 133.4 mIU/mL Irlanda Li MD LAB - CHEMISTRY SLIME MCINTYRE [facility] [place] [address] * (ABNORMAL) TESTOSTERONE FREE FEM/CHLD HYPOGNDL MALE (01/17/2015 2:23 PM BRUSH OR BROOM CUTTER) [facility] Testosterone Free LC-MS 23.9(H) 1.2 - 7.5 pg/mL 01/20/2015 11:27 PM BRUSH OR BROOM CUTTER [facility] ([facility]) Comment: Testosterone, Free LC-MS/MS: Dao Stage Reference Intervals Male Female Dao Stage I Less than 3.8 pg/mL Less than 2.2 pg/mL Dao Stage II 0.3-21 pg/mL 0.4-4.5 pg/mL Dao Stage III 1-98 pg/mL 1.3-7.5 pg/mL Dao Stage IV 35-169 pg/mL 1.1-15.5 pg/mL Dao Stage V 41-239 pg/mL 0.8-9.2 pg/mL To convert to pmol/L, multiply pg/mL by 3.47 The concentration of Free Testosterone is derived from a mathematical expression based on the constant for the binding of testosterone to sex hormone binding globulin. REFERENCE INTERVAL: Testosterone, Free LC-MS/MS Access complete set of age- and/or gender-specific reference intervals for this test in the [facility] Test Directory ([employer]). Test developed and characteristics determined by [employer]. See Compliance Statement B: [employer].Visible Measures/ Blood specimen (specimen) BLOOD SPECIMEN / Unknown Lab Venipuncture / Unknown 01/17/2015 2:23 PM BRUSH OR BROOM CUTTER 01/17/2015 3:30 PM BRUSH OR BROOM CUTTER Irlanda Li MD LAB - CHEMISTRY SLIME MCINTYRE [facility] Organization Address City/State/ZIP Co de Phone Number [facility]) [address] * IRON + TIBC PANEL (08/03/2014 11:41 AM CDT) Only the most recent of3 resultswithin the time period is included. Iron 99 30 - 160 ug/dL 08/04/2014 2:26 PM CDT [facility] ([facility]) Comment: REFERENCE INTERVAL: Iron, Serum or Plasma Access complete set of age- and/or gender-specific reference intervals for this test in the [facility] Test Directory ([employer]). TIBC 314 250 - 400 ug/dL 08/04/2014 2:26 PM CDT [facility] ([facility]) Comment: REFERENCE INTERVAL: Iron Binding Capacity Total Access complete set of age- and/or gender-specific reference intervals for this test in the [facility] Laboratory Test Directory ([employer]). Transferrin Saturation % 32 20 - 50 %sat 08/04/2014 2:26 PM CDT [facility] ([facility]) Blood specimen (specimen) BLOOD SPECIMEN / Unknown Lab Venipuncture / Unknown 08/03/2014 11:41 AM CDT 08/03/2014 12:06 PM CDT Geri Ellsworth ANTHROPOLOGIST PHYSICAL-UNIT MANAGER LAB - CHEMISTR Y ORDERABLES [facility]) [address] [place] [address], [facility] * (ABNORMAL) COMPREHENSIVE METABOLIC PANEL (04/27/2013 2:24 PM CDT) Only the most recent of3 resultswithin the time period is included. Glucose 131(H) 70 - 105 mg/dL 04/27/2013 3:33 PM [facility] Sodium 146(H) 136 - 145 mmol/L 04/27/2013 3:33 PM [facility] Potassium 3.9 3.5 - 5.1 mmol/L 04/27/2013 3:33 PM [facility] Chloride 108(H) 98 - 107 mmol/L 04/27/2013 3:33 PM [facility] CO2 28 20 - 28 mmol/L 04/27/2013 3:33 PM [facility] Calcium 9.18 8.92 - 10.32 mg/dL 04/27/2013 3:33 PM [facility] Anion Gap 10 5 - 20 mmol/L 04/27/2013 3:33 PM [facility] BUN 11.1 6.1 - 21.0 mg/dL 04/27/2013 3:33 PM [facility] Creatinine 0.78 0.62 - 1.00 mg/dL 04/27/2013 3:33 PM [facility] eGFR by MDRD mL/min/1.7 3m2 04/27/2013 3:33 PM [facility] Comment:eGFR calculations ar e not performed for children under 18 years old. eGFR by MDRD mL/min/1.7 3m2 04/27/2013 3:33 PM CDT [facility] Comment:eGFR calculations ar e not performed for children under 18 years old. Alkaline Phosphatase 100 100 - 390 U/L 04/27/2013 3:33 PM CDT [facility] ALT 36 8 - 65 U/L 04/27/2013 3:33 PM CDT [facility] AST 26 3 - 35 U/L 04/27/2013 3:33 PM CDT [facility] Protein Total 6.9 6.4 - 8.5 gm/dL 04/27/2013 3:33 PM CDT [facility] Albumin 3.9 3.3 - 5.0 gm/dL 04/27/2013 3:33 PM CDT [facility] Bilirubin Total 0.1(L) 0.3 - 1.2 mg/dL 04/27/2013 3:33 PM CDT [facility] Blood BLOOD SPECIMEN / Unknown Lab Venipuncture / Unknown 04/27/2013 2:24 PM CDT 04/27/2013 3:01 PM CDT Melba Garcia ANTHROPOLOGIST [facility] LAB - CHEMISTRY ORDERABLES Performing Organization Address City/[facility]/ZIP Co de Phone Number [facility] [place] [phone] * LAB RESULTS ORDER (11/24/2011 8:37 AM CDT) Narrative Transcriptions Document, Scanned - 11/24/2011 8:36 AM CDT Scanned Document LAB - THERAPEUTIC DR SHERWIN MONITORING ORDERABLES * (ABNORMAL) GLUCOSE (11/11/2011 10:14 AM CDT) Glucose 199(H) 70 - 105 mg/dL 11/11/2011 11:11 AM CDT [facility] Blood specimen (specimen) BLOOD SPECIMEN / Unknown 11/11/2011 10:14 AM CDT 11/11/2011 10:22 AM CDT Melba Garcia [facility] LAB - CHEMISTRY ORDERABLES [facility] [address] [place] [address] * HYDROXYPROGESTERONE 17- (11/11/2011 10:14 AM CDT) 17 Hydroxyprogesterone 80 ng/dL 5:03 PM CDT [facility] Comment: 17-HYDROXYPROGESTERONE: Dao Stages, Females Age 7-17 Dao Stage I Less than or equal to 74 ng/dL Dao Stage II Less than or equal to 164 ng/dL Dao Stage III 13-209 ng/dL Dao Stage IV-V 7-170 ng/dL INTERPRETIVE INFORMATION: 17-Hydroxyprogesterone FEMALE: Premature (26-28 weeks) ......... 124-841 ng/dL Premature (29-35 weeks) .......... 26-568 ng/dL Full term, Day 3 .................. 7-77 ng/dL 4 days-30 days..................... 7-106 ng/dL 1-5 months ....................... 13-106 ng/dL 6 months-1 year Less than or equal to 148 ng/dL 2-3 years ..... Less than or equal to 256 ng/dL 4-6 years ......Less than or equal to 299 ng/dL 7-9 years ...... Less than or equal to 71 ng/dL 10-12 years ... Less than or equal to 129 ng/dL 13-15 years ....................... 9-208 ng/dL 16-17 years ... Less than or equal to 178 ng/dL 18 years and older ........ Less than 207 ng/dL Follicular ....................... 15-70 ng/dL Luteal ........................... 35-290 ng/dL MALE: Premature (26-28 weeks) ......... 124-841 ng/dL Premature (29-35 weeks) .......... 26-568 ng/dL Full term, Day 3 .................. 7-77 ng/dL 4 days-2 months ........... Less than 200 ng/dL 3-5 months ..... Less than or equal to 90 ng/dL 6 months-1 year Less than or equal to 148 ng/dL 2-3 years ..... Less than or equal to 228 ng/dL 4-6 years ..... Less than or equal to 208 ng/dL 7-9 years ...... Less than or equal to 63 ng/dL 10-12 years .... Less than or equal to 79 ng/dL 13-15 years ....................... 9-140 ng/dL 16-17 years ...................... 24-192 ng/dL 18 years and older ........ Less than 139 ng/dL Blood specimen (specimen) BLOOD SPECIMEN / Unknown 11/11/2011 10:14 AM CDT 11/11/2011 10:22 AM CDT [facility] - CHEMISTRY ORDERABLES [facility] [address] [place] [address] * SPLIT NIGHT PROTOCOL (10/25/2011) Geri Ellsworth [facility] O RDERABLES * PATHOLOGY/CYTOLOGY REPORT ORDER (07/30/2011 7:03 AM CDT) Narrative Transcriptions Document, Scanned - 07/30/2011 7:03 AM CDT Scanned Document LAB - PATHOLOGY/CYTO LOGY ORDERABLES * GROSS EXAM PATHOLOGY (STL) (07/28/2011 3:19 PM CDT) Case Report Surgical Pathology Report Case: [id number] Authorizing Provider: Vidal Levin MD Ordering Provider: Vidal Levin MD Ordering Location: [facility] Collected: 07/28/2011 3:19 PM Pathologist: Vikas Smyth MD Received: 07/29/2011 6:03 AM Signed Out: 07/29/2011 7:45 PM (Final) Specimen: Tonsil(s) 07/29/2011 7:45 PM T [facility] Final Diagnosis GROSS DIAGNOSIS: PALATINE TONSILS. 07/29/2011 7:45 PM [facility] Clinical History The patient is a 11-year-old girl with adenotonsillar hypertrophy and obstructive sleep apnea. 07/29/2011 7:45 PM T [facility] Gross Description Submitted fixed in formalin in one container for gross examination only labeled with the patient's name, Diane Rivero, and tonsils, are two egg-shaped, pink-hilario palatine tonsils measuring 2.7 x 1.5 x 1.4 cm and 2.7 x 1.5 x 1.3 cm weighing approximately 7 grams combined. On cut surface, the tonsils have a cerebriform yellow-hilario appearance. No sections are taken. (CT/mal) 07/29/2011 7:45 PM T [facility] Synoptic Report 07/29/2011 7:45 PM [facility] Disclaimer This case has been personally reviewed and interpreted by the attending (teaching) pathologist. 07/29/2011 7:45 PM [facility] Miscellaneous samples (specimen) SPECIMEN FROM TONSIL / Unknown 07/28/2011 3:19 PM CDT 07/29/2011 6:03 AM CDT Vidal Levin MD LAB - PATHOLOGY/C YTOLOGY ORDERABLES Performing Organization Address [facility] Co de Phone Number [facility] [address] [place] [address] * PEDIATRIC DIAGNOSTIC POLYSOMNOGRAM (05/25/2011) Keturah Putnam MD SLEEP CENTER ORDERAB LES * EKG 15-LEAD (03/12/2011) Only the most recent of2 resultswithin the time period is included. Arabella Sanchez MD ECG ORDERABLES * CARDIAC EKG ORDER (03/09/2011 8:05 AM BRUSH OR BROOM CUTTER) Narrative Transcriptions Document, Scanned - 03/09/2011 8:05 AM CST Scanned Document CARDIAC SERVICES ORD ERABLES * HCG URINE QUALITATIVE (03/06/2011 5:40 PM BRUSH OR BROOM CUTTER) HCG Qual Urine Negative Negative [facility] Urine specimen (specimen) URINE / Unknown 03/06/2011 5:40 PM [facility] OR [facility]OM CUTTER 03/06/2011 5:41 PM BRUSH OR BR[facility]OM CUTTER Arabella Sanchez MD LAB - URINALYSIS ORD ERABLES Performing Organization Address [facility] Co de Phone Number [facility] [address] [place] [address] * (ABNORMAL) CBC W AUTO DIFFERENTIAL (03/06/2011 5:31 PM BRUSH OR BROOM CUTTER) WBC 3.65(L) 4.5 - 14.5 K/cumm [facility] RBC 4.68 4.00 - 5.20 mill/cumm [facility] Hemoglobin 13.9 11.5 - 15.5 gm/dl [facility] Hematocrit 39.4 35.0 - 45.0 % [facility] MCV 84.2 77.0 - 95.0 cu microns [facility] MCH 29.7 25.0 - 33.0 uug [facility] MCHC 35.3 31.0 - 37.0 % [facility] RDW 12.7 % [facility] MPV 10.5 fl [facility] Platelet Count 239 100 - 400 K/cumm [facility] Granulocytes % 25.5 24 - 66 % [facility] Lymphocytes % 60.3 22 - 61 % [facility] Monocytes % 11.5 3 - 15 % [facility] Eosinophils % 2.2 0 - 10 % [facility] Basophils % 0.5 0 - 1 % [facility] Comment Manual Diff Automated Diff Performed [facility] Blood specimen (specimen) BLOOD SPECIMEN / Unknown 03/06/2011 5:31 PM BRUSH OR [facility]OOM CUTTER 03/06/2011 5:33 PM BR[facility] OR [facility]OM C[facility]TER Arabella Sanchez MD LAB - HEMATOLOGY ORD ERABLES Performing Organization Address City/State/[facility] Co de Phone Number [facility] [place] [phone] * ECHO CONSULT - PEDIATRIC (12/11/2010 2:03 PM CDT) 12/11/2010 2:03 PM CDT Narrative [facility] - 12/11/2010 2:51 PM CDT , Transthoracic Echocardiogram 2D, M-mode, Doppler, and Color Doppler Name: DIANE RIVERO MR #: [id number] Study date: 12/11/2010 Age: 10 years : 2000 Gender: Female Ht: 63.7 in / 161.8 cm Wt: 158 lb / 71.8 kg BSA: 1.76 m HR: BP: / age: PHONG: Maternal age: PROSPECTING DRILLER HELPER: Arie Walker MD PEDIATRIC ECHO SENIOR CHEMICAL PROCESS ENGINEER: Kamilah Hernandez RDCS History: Abnormal EKG and family history of sudden cardiac . Procedure: The procedure was performed in the echo lab. Anatomic relationships: Visceral situs: normal. Left sided cardiac apex (levocardia). Normal atrial situs (atrial situs solitus). Concordant atrioventricular alignment. Ventricular d-loop. Normal infundibular anatomy. Concordant ventriculoarterial connection. Normally related great vessels. Systemic veins: SVC: The superior vena cava and left innominate vein appeared of normal caliber, with normal flow. IVC: The inferior vena cava was normal in size and course. IVC Doppler: The flow pattern was normal. Pulmonary veins: Three of the four pulmonary veins were seen and drained normally to the left atrium (the right lower pulmonary vein was not well seen). Doppler: Doppler flow pattern was normal in the pulmonary vein(s). Right atrium: Size was normal. Left atrium: Size was normal. Atrial septum: No defect or patent foramen ovale was identified. Tricuspid valve: The valve structure was normal. Doppler: The transtricuspid velocity was within the normal range. There was no evidence for tricuspid stenosis. There was trivial regurgitation. Mitral valve: Valve structure was normal. There is no mitral valve prolapse. Doppler: The transmitral velocity was within the normal range. There was no evidence for stenosis. There was no regurgitation. Right ventricle: The cavity size was normal. Wall thickness was normal. Systolic function was normal. RV outflow tract: There was no obstruction. Left ventricle: The cavity size was normal. Wall thickness was normal. Systolic function was normal. There were no regional wall motion abnormalities. Doppler: Left ventricular diastolic function parameters were normal. LV outflow tract: There was no outflow obstruction. Ventricular septum: Thickness was normal. The septum was intact. Pulmonic valve: Leaflets exhibited normal thickness and normal cuspal separation. Doppler: The transpulmonic velocity was within the normal range. There was trivial regurgitation. Aortic valve: The valve was trileaflet. Leaflets exhibited normal thickness and normal cuspal separation. Doppler: Transaortic velocity was within the normal range. There was no stenosis. There was no regurgitation. Pulmonary artery: The main pulmonary artery was normal, with normal-sized, confluent proximal branch pulmonary arteries. Aorta: There was a normal-sized aortic arch with normal brachiocephalic branching. The root was normal in size. The ascending aorta size was normal. Coronary arteries: The size and course of the left main, proximal left anterior descending, and proximal right coronary arteries were normal. Right coronary artery: Flow was normal. Left main coronary artery: Flow was normal. Left anterior descending: Flow was normal. Extracardiac shunting: No ductal shunt was detected by Doppler. Pericardium: There was no pericardial effusion. The pericardium was normal in appearance. Impressions: - Diagnoses: Normal echocardiogram. - Summary: The heart is structurally normal with normal biventricular systolic function. There is no pathologic valvular regurgitation. Prepared and signed by Arie Walker MD Signed 12/11/2010 14:52:48 DOPPLER MEASUREMENTS Tricuspid valve (Reference) Regurg peak henna 235 cm/s RV-RA peak gradient 22 mmHg Legend: Predicted normals (shown in italics) are given as mean 2 SD Asterisk (*) rodriguez values outside the specified normal range. System measurement tables MM %FS: 32.4 % EDV(Teich): 82.2 ml EF(Teich): 61 % ESV(Teich): 32 ml IVSd: 7.8 mm IVSs: 10.2 mm LVIDd: 42.8 mm LVIDs: 28.9 mm LVPWd: 10.2 mm LVPWs: 14.5 mm LVd Mass: 139.6 g LVd Mass (ASE): 123.2 g LVd Mass Ind (ASE): 70 g/m2 LVd Mass Index: 79.3 g/m2 LVs Mass: 121.8 g LVs Mass (ASE): 108.9 g LVs Mass Ind (ASE): 61.9 g/m2 LVs Mass Index: 69.2 g/m2 SV(Teich): 50.1 ml Procedure Note 12/11/2010 , Transthoracic Echocardiogram 2D, M-mode, Doppler, and Color Doppler Name: DIANE RIVERO MR #: [id number] Study date: 12/11/2010 Age: 10 years : 2000 Gender: Female Ht: 63.7 in / 161.8 cm Wt: 158 lb / 71.8 kg BSA: 1.76 m HR: BP: / age: PHONG: Maternal age: PROSPECTING DRILLER HELPER: Arie Walker MD PEDIATRIC ECHO SENIOR CHEMICAL PROCESS ENGINEER: Kamilah Hernandez RDCS History: Abnormal EKG and family history of sudden cardiac . Procedure: The procedure was performed in the echo lab. Anatomic relationships: Visceral situs: normal. Left sided cardiac apex (levocardia). Normal atrial situs (atrial situs solitus). Concordant atrioventricular alignment. Ventricular d-loop. Normal infundibular anatomy. Concordant ventriculoarterial connection. Normally related great vessels. Systemic veins: SVC: The superior vena cava and left innominate vein appeared of normal caliber, with normal flow. IVC: The inferior vena cava was normal in size and course. IVC Doppler: The flow pattern was normal. Pulmonary veins: Three of the four pulmonary veins were seen and drained normally to the left atrium (the right lower pulmonary vein was not well seen). Doppler: Doppler flow pattern was normal in the pulmonary vein(s). Right atrium: Size was normal. Left atrium: Size was normal. Atrial septum: No defect or patent foramen ovale was identified. Tricuspid valve: The valve structure was normal. Doppler: The transtricuspid velocity was within the normal range. There was no evidence for tricuspid stenosis. There was trivial regurgitation. Mitral valve: Valve structure was normal. There is no mitral valve prolapse. Doppler: The transmitral velocity was within the normal range. There was no evidence for stenosis. There was no regurgitation. Right ventricle: The cavity size was normal. Wall thickness was normal. Systolic function was normal. RV outflow tract: There was no obstruction. Left ventricle: The cavity size was normal. Wall thickness was normal. Systolic function was normal. There were no regional wall motion abnormalities. Doppler: Left ventricular diastolic function parameters were normal. LV outflow tract: There was no outflow obstruction. Ventricular septum: Thickness was normal. The septum was intact. Pulmonic valve: Leaflets exhibited normal thickness and normal cuspal separation. Doppler: The transpulmonic velocity was within the normal range. There was trivial regurgitation. Aortic valve: The valve was trileaflet. Leaflets exhibited normal thickness and normal cuspal separation. Doppler: Transaortic velocity was within the normal range. There was no stenosis. There was no regurgitation. Pulmonary artery: The main pulmonary artery was normal, with normal-sized, confluent proximal branch pulmonary arteries. Aorta: There was a normal-sized aortic arch with normal brachiocephalic branching. The root was normal in size. The ascending aorta size was normal. Coronary arteries: The size and course of the left main, proximal left anterior descending, and proximal right coronary arteries were normal. Right coronary artery: Flow was normal. Left main coronary artery: Flow was normal. Left anterior descending: Flow was normal. Extracardiac shunting: No ductal shunt was detected by Doppler. Pericardium: There was no pericardial effusion. The pericardium was normal in appearance. Impressions: - Diagnoses: Normal echocardiogram. - Summary: The heart is structurally normal with normal biventricular systolic function. There is no pathologic valvular regurgitation. Prepared and signed by Arie Walker MD Signed 12/11/2010 14:52:48 DOPPLER MEASUREMENTS Tricuspid valve (Reference) Regurg peak henna 235 cm/s RV-RA peak gradient 22 mmHg Legend: Predicted normals (shown in italics) are given as mean 2 SD Asterisk (*) rodriguez values outside the specified normal range. System measurement tables MM %FS: 32.4 % EDV(Teich): 82.2 ml EF(Teich): 61 % ESV(Teich): 32 ml IVSd: 7.8 mm IVSs: 10.2 mm LVIDd: 42.8 mm LVIDs: 28.9 mm LVPWd: 10.2 mm LVPWs: 14.5 mm LVd Mass: 139.6 g LVd Mass (ASE): 123.2 g LVd Mass Ind (ASE): 70 g/m2 LVd Mass Index: 79.3 g/m2 LVs Mass: 121.8 g LVs Mass (ASE): 108.9 g LVs Mass Ind (ASE): 61.9 g/m2 LVs Mass Index: 69.2 g/m2 SV(Teich): 50.1 ml Arie Walker MD ECHO ORDERABLES [facility] [address] [place] [place] [id number] * XR CHEST PA AND LATERAL (11/20/2010 1:50 PM CDT) Anatomical Region Laterality Modality Chest Radiographic Gilma ging 11/20/2010 1:54 PM CDT Impressions 11/20/2010 3:10 PM CDT No abnormality is seen. D: Audi Mena M.D. Narrative 11/20/2010 3:10 PM CDT Exam: Chest PA and lateral Date: 11/20/2010 Comparison: None available Findings: There is no acute infiltrate, pleural effusion, or pneumothorax. The cardiac silhouette is normal. The peripheral pulmonary vascularity is within normal limits. The bony thorax is intact. Procedure Note Ying Curiel MD - 11/20/2010 Exam: Chest PA and lateral Date: 11/20/2010 Comparison: None available Findings: There is no acute infiltrate, pleural effusion, or pneumothorax. The cardiac silhouette is normal. The peripheral pulmonary vascularity is within normal limits. The bony thorax is intact. IMPRESSION No abnormality is seen. D: Audi Mena M.D. Ayana Lopez MD DIAGNOSTIC IMAGING ORDERABLES Care Teams Property Management Assistant Relationship Specialty Start Date End Date Brynn Perez MD [address] [place] [phone] PCP - General 06/16/21
--- OUTSIDE RECORDS SUMMARY | 2024-04-11 01:40 | XMS_ITS | Referral Summary ---
Author Organization [facility] Address [address] [place] [address] Care Team Providers Care Vice President Sales Name Role Phone Brynn Perez MD Primary Care Provider [phone] Source Comments [facility],non-owned Affiliates and Associated Physician Practices is amultiple site organization consisting of ambulatory clinics and hospital sitesin [place], [place], [place] and [place]. This disclosure is being madepursuant to the Care Everywhere program and may not contain all information available regarding this patient. Last updated 17.[facility] Race Yourself Allergies No known active allergies Medications * Be aware that medications may not be up to date on this document. Alwaysverify current medications with the patient. Medication Sig Dispensed Refills Start Date End Date Status urea (CARMOL;VANAMIDE) 40 % creamIndications:Acant hosis nigricans Apply to affected area two times daily. 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 30DS 120 mL 11 10/31/2018 Active Active Problems Problem Noted Date Diagnosed Date PCOS (polycystic ovarian syndrome) 11/11/2011 Type II diabetes mellitus 11/11/2011 Overview (11/23/2017): Overview: Overview: POOJA DAUGHERTY CNP Diagnosed 11/11/2011 Body mass index, pediatric, greater than or equal to 95th percentile for age 0809/30/2011 Overview (11/23/2017): Overview: Overview: Severity:not controlled Chronicity:chronic APOLONIA GODDARD MD Dermatomycosis 07/01/2011 Overview (11/23/2017): Overview: Overview: AISHA THORNTON Acquired acanthosis nigricans 06/30/2011 Overview (11/23/2017): Overview: Overview: Severity:not controlled Chronicity:chronic POOJA DAUGHERTY CNP Attention deficit hyperactivity disorder (ADHD) 06/30/2011 Overview (11/23/2017): Overview: Overview: POOJA DAUGHERTY CNP Hypertrophy of tonsils and adenoids 06/25/2011 Sleep apnea 06/04/2011 Overview (11/23/2017): Overview: Overview: APOLONIA GODDARD MD Mild VIN Repeat split night psg 09/26/17 S/p T&A AHI 7.8 Min 02 sat 98% CPAP 8 cmh20 Syncope and collapse 03/06/2011 Immunizations Name Administration Dates Next Due INFLUENZA VACCINE, QUADR. (F LUZONE; FLULAVAL; FLUARIX; AFLURIA QUADRIVALENT; 6MO+), 0.5 ML (IIV4) 01/17/2015 Social History Tobacco Use Types Packs/Day Years [...] Mass Index 50.24 10/13/2018 11:14 AM CDT Plan of Treatment Not on file Procedures Procedure Name Priority Date/Time Associated Diagnosis Comments HEMOGLOBIN A1C - POCT (IP) BEAKER Routine 10/29/2015 11:54 AM CDT Type 2 diabetes mellitus without complication, without long-term current use of insulin (HCC) MICROALB/CREAT RATIO URINE RANDOM PANEL Routine 10/29/2015 11:52 AM CDT Type 2 diabetes mellitus without complication, without long-term current use of insulin (HCC) BASIC METABOLIC PANEL (CALCIUM TOTAL) Routine 10/29/2015 11:52 AM CDT Type 2 diabetes mellitus without complication, without long-term current use of insulin (HCC) from Last 3 Months or Most Recently Relevant to Health Maintenance Results * (ABNORMAL) HEMOGLOBIN A1C - POCT (IP) SANJANA (10/29/2015 11:54 AM CDT) Hemoglobin A1c POCT 6.6(A) 3.4 - 6.1 % [facility] POCT TESTING QC Verified Yes Yes [facility] PO CT TESTING Blood specimen (specimen) BLOOD SPECIMEN / Unknown 10/29/2015 11:54 AM CDT Irlanda Li MD LAB - POINT OF CARE ORDERABLES [facility] POCT TESTING [facility] [place], [place] [id number] [place] [address] * MICROALB/CREAT RATIO URINE RANDOM PANEL (10/29/2015 11:52 AM CDT) Creatinine Urine 176.93 mg/dL 10/29/2015 1:46 PM T [facility] Microalbumin Urine <0.5 <1.7 mg/dL 10/29/2015 1:46 PM T [facility] Microalbumin/Crea tinine Ratio <30 mg/g 10/29/2015 1:46 PM T [facility] Comment: Microalb/Creatinine Ratio= <3 Urine URINE SPECIMEN OBTAINED BY CLEAN CATCH PROCEDURE / Unknown 10/29/2015 11:52 AM CDT 10/29/2015 12:10 PM CDT Irlanda Li MD LAB - URINE CHEMISTR Y ORDERABLES Performing Organization Address City/State/[facility] de Phone Number [facility] [address] [place] [address] * (ABNORMAL) BASIC METABOLIC PANEL (CALCIUM TOTAL) (10/29/2015 11:52 AM CDT) Glucose 115(H) 70 - 105 mg/dL 10/29/2015 12:52 PM T [facility] Sodium 140 136 - 145 mmol/L 10/29/2015 12:52 PM T [facility] Potassium 3.8 3.5 - 5.1 mmol/L 10/29/2015 12:52 PM [facility] Chloride 103 98 - 107 mmol/L 10/29/2015 12:52 PM T [facility] CO2 27 20 - 28 mmol/L 10/29/2015 12:52 PM T [facility] Calcium 9.37 9.08 - 10.48 mg/dL 10/29/2015 12:52 PM T [facility] Anion Gap 10 5 - 20 mmol/L 10/29/2015 12:52 PM [facility] BUN 9.3 5.3 - 18.7 mg/dL 10/29/2015 12:52 PM T [facility] Creatinine 0.82 0.61 - 1.07 mg/dL 10/29/2015 12:52 PM [facility] eGFR by MDRD mL/min/1.7 3m2 10/29/2015 12:52 PM CDT [facility] Comment: eGFR calculations are not performed for children under 18 years old. eGFR by MDRD mL/min/1.7 3m2 10/29/2015 12:52 PM CDT [facility] Comment: eGFR calculations are not performed for children under 18 years old. Blood BLOOD SPECIMEN / Unknown 10/29/2015 11:52 AM CDT 10/29/2015 12:09 PM CDT Irlanda Li MD LAB - CHEMISTRY SLIME MCINTYRE [facility] [address] [place] [address] from Last 3 Months or Most Recently Relevant to Health Maintenance Care Teams Vice President Sales Relationship Specialty Start Date End Date Brynn Perez MD [address] [place] [id number] PCP - General 06/16/21
--- OUTSIDE RECORDS SUMMARY | 2024-04-11 01:40 | XMS_ITS | Clinical Summary ---
Author Organization [facility] Address [address] [place] [address] Care Team Providers Care Lay Ups Assembler Name Role Phone Brynn Perez MD Primary Care Provider [phone] Source Comments [facility],non-owned Affiliates and Associated Physician Practices is amultiple site organization consisting of ambulatory clinics and hospital sitesin [place], [place], [place]. This disclosure is being madepursuant to the Care Everywhere program and may not contain all information available regarding this patient. Last updated 17.[facility] Allergies No known active allergies Medications * [...] Overview (11/23/2017): Overview: Overview: Severity:not controlled Chronicity:chronic POJOA DAUGHERTY CNP Attention deficit hyperactivity disorder (ADHD) [...] AFLURIA QUADRIVALENT; 6MO+), 0.5 ML (IIV4) 01/17/2015 Family History Medical History Relation Name Comments Breast Cancer after age 50 or unknown Maternal Grandmo ther Relation Name Status Comments Maternal Grandmother Social History Tobacco Use Types Packs/Day Years [...] 10/13/2018 11:14 AM CDT Plan of Treatment Health Maintenance Due Date Last Done Comments PAP SMEAR 1999 HIV SCREENING 05/04/2014 HPV VACCINE (1 - 3-dose series) 05/04/2014 CHLAMYDIA/GONORRHEA SCREENING 2015 DIABETES-HGB A1C 04/27/2016 10/29/2015, 11/2015, 01/17/2015, Additional history exists HEPATITIS C SCREENING 04/30/2017 DIABETES-FOOT EXAM WITH MONOFILAMENT 05/04/2017 DIABETES-SERUM CREATININE 05/04/20172015, 04/27/2013, 03/15/2012, Additional history exists DTAP/TDAP/TD VACCINES (1 - Tdap) 05/04/2018 HEPATITIS B VACCINE (1 of 3 - 19+ 3-dose series) 05/04/2018 DIABETES RETINOPATHY SCREENING 08/07/2018 08/07/2016, 08/06/2015, 05/01/2014 COVID-19 VACCINE ( season) 2023 INFLUENZA VACCINE (#1) 2023 01/17/2015 DEPRESSION SCREENING 02/16/2024 DIABETES - URINE PROTEIN SCREENING 02/16/2024 10/29/2015, 08/02/2014, 04/27/2013, Additional history exists ZOSTER VACCINE (1 of 2) 05/04/2049 HIB VACCINE Aged Out No longer eligi ble based on patient's age to complete this topic MENINGOCOCCAL (Group B) VACCINE Aged Out No longer eligible based on patient's age to complete this topic MENINGOCOCCAL VACCINE Aged Out No mallory sandy eligible based on patient's age to complete this topic PNEUMOCOCCAL VACCINE Aged Out No long er eligible based on patient's age to complete this topic Procedures Procedure Name Priority Date/Time Associated Diagnosis [...] POCT (IP) BEAKER (10/29/2015 11:54 AM CDT) Hemoglobin A1c POCT 6.6(A) 3.4 - 6.1 % [facility] POCT TEST[facility] QC Verified Yes Yes [facility] PO CT TESTING Blood specimen (specimen) BLOOD SPECIMEN / Unknown 10/29/2015 11:54 AM CDT Irlanda Li MD LAB - POINT OF CARE ORDERABLES Performing Organization Address City/State/[facility] Co de Phone Number [facility] PO[facility] TEST[facility] [address] [place] [address] * MICROALB/CREAT RATIO URINE RANDOM PANEL (10/29/2015 11:52 AM CDT) Creatinine Urine 176.93 mg/dL 10/29/2015 1:46 PM CDT [facility] Microalbumin Urine <0.5 <1.7 mg/dL 10/29/2015 1:46 PM CDT [facility] Microalbumin/Crea tinine Ratio <30 mg/g 10/29/2015 1:46 PM CDT [facility] Comment: Microalb/Creatinine Ratio= <3 Urine URINE SPECIMEN OBTAINED BY CLEAN CATCH PROCEDURE / Unknown 10/29/2015 11:52 AM CDT 10/29/2015 12:10 PM T Irlanda Li MD LAB - URINE CHEMISTR Y ORDERABLES Performing Organization Address City/State/[facility] Co de Phone Number [facility] [place] [address] * (ABNORMAL) BASIC METABOLIC PANEL (CALCIUM TOTAL) (10/29/2015 11:52 AM CDT) Glucose 115(H) 70 - 105 mg/dL 10/29/2015 12:52 PM [facility] Sodium 140 136 - 145 mmol/L 10/29/2015 12:52 PM [facility] Potassium 3.8 3.5 - 5.1 mmol/L 10/29/2015 12:52 PM [facility] Chloride 103 98 - 107 mmol/L 10/29/2015 12:52 PM [facility] CO2 27 20 - 28 mmol/L 10/29/2015 12:52 PM [facility] Calcium 9.37 9.08 - 10.48 mg/dL 10/29/2015 12:52 PM [facility] Anion Gap 10 5 - 20 mmol/L 10/29/2015 12:52 PM [facility] BUN 9.3 5.3 - 18.7 mg/dL 10/29/2015 12:52 PM [facility] Creatinine 0.82 0.61 - 1.07 mg/dL 10/29/2015 12:52 PM [facility] eGFR by MDRD mL/min/1.7 3m2 10/29/2015 12:52 PM [facility] Comment: eGFR calculations are not performed for children under 18 years old. eGFR by MDRD mL/min/1.7 3m2 10/29/2015 12:52 PM [facility] Comment: eGFR calculations are not performed for children under 18 years old. Blood BLOOD SPECIMEN / Unknown 10/29/2015 11:52 AM CDT 10/29/2015 12:09 PM CDT Irlanda Li MD LAB - CHEMISTRY SLIME MCINTYRE [facility] [place] [address] from Last 3 Months or Most Recently Relevant to Health Maintenance Care Teams Lay Ups Assembler Relationship Specialty Start Date End Date Brynn Perez MD [address] [place] [id number] PCP - General 06/16/21
--- NOTE | 2024-04-11 02:19 | ED.EAR ---
HPI - Ear Problem General Chief complaint: Ear Stated complaint: right ear pain Time Seen by Provider: 04/11/24 02:19 Source: patient Mode of arrival: ambulatory Limitations: no limitations History of Present Illness HPI Narrative: This is a 23-year-old female that presents emergency department for right ear pain. Ongoing over the last 2 days. Reports she noted some drainage from the ear. Denies fevers. Related Data Allergies Allergy/AdvReac Type Severity Reaction Status Date / Time No Known Allergies Allergy Verified 04/11/24 01:56 Review of Systems Review of Systems: CONSTITUTIONAL: Denies fever ENT: Reports otalgia. All systems reviewed & are unremarkable except as noted in HPI and below PMFSH Past Medical History Medical History Patient denies significant medical history Surgical History Surgical History No pertinent past surgical history Social History Social History Smoking status: Never smoker Exam Narrative: GENERAL: Well-appearing, well-nourished, and in no acute distress. HEAD: Normocephalic, atraumatic. EYES: EOMI. ENT: Bilateral TMs pearly ardon non-bulging. Bilateral external auditory canals are normal NECK: Supple. No adenopathy or masses. EXTREMITIES: Normal range of motion. No edema. SKIN: Warm, dry, no rash. NEURO: No focal deficits. Alert and oriented x3. PSYCH: Normal mood and affect Course Vital Signs Vital signs: Vital Signs Temperature 97.1 F L 04/11/24 01:39 Pulse Rate 94 04/11/24 01:39 Respiratory Rate 19 04/11/24 01:39 Blood Pressure 120/59 L 04/11/24 01:39 Pulse Oximetry 100 04/11/24 01:39 Oxygen Delivery Room Air 04/11/24 01:39 Temperature 97.1 F L 04/11/24 01:39 Pulse Rate 94 04/11/24 01:39 Respiratory Rate 19 04/11/24 01:39 Blood Pressure 120/59 L 04/11/24 01:39 Pulse Oximetry 100 04/11/24 01:39 Oxygen Delivery Room Air 04/11/24 01:39 Medical Decision Making MDM Narrative Medical decision making narrative: Patient presents the emergency department for right ear pain. Bilateral TMs as well as external auditory canals are normal. She is afebrile and nontoxic appearing. Instructed to follow-up with primary provider. Given warnings to return for worsening symptoms Differential Diagnosis Differential Diagnosis: Otitis media, otitis externa Vital Signs Vital Signs: Vital Signs Temperature 97.1 F L 04/11/24 01:39 Pulse Rate 94 04/11/24 01:39 Respiratory Rate 19 04/11/24 01:39 Blood Pressure 120/59 L 04/11/24 01:39 Pulse Oximetry 100 04/11/24 01:39 Oxygen Delivery Room Air 04/11/24 01:39 Temperature 97.1 F L 04/11/24 01:39 Pulse Rate 94 04/11/24 01:39 Respiratory Rate 19 04/11/24 01:39 Blood Pressure 120/59 L 04/11/24 01:39 Pulse Oximetry 100 04/11/24 01:39 Oxygen Delivery Room Air 04/11/24 01:39 Critical Care Time Critical Care Time Critical Care Time: No Discharge Plan Discharge Clinical Impression: Ear pain, right Patient Disposition: Home, Self-Care Condition: Stable Instructions: Earache (ED) Additional Instructions: Return to the emergency department for fever, swelling of your ear, abnormal drainage, worsening pain, or any other concerns Remain well-hydrated, get plenty of rest. Take Tylenol or Motrin [id number] for pain as needed. Follow up with primary care doctor Patient Language: Macedonian Prescriptions: No Action amoxicillin-pot clavulanate 875-125 mg tablet 1 tablet PO Q12H Qty: 14 0RF ofloxacin 0.3 % drops 10 drp EACH EAR DAILY 7 Days Qty: 10 0RF Follow-up/Referrals: Jass Soria MD [Physician] - UNKNOWN,DOCTOR [Primary Care Provider] -
--- OUTSIDE RECORDS SUMMARY | 2024-04-11 02:26 | XMS_ITS | Clinical Summary ---
Author Organization [facility] Address [address] [place] [address] Care Team Providers Care Pick Up Worker Name Role Phone Brynn Perez MD Primary Care Provider [phone] Source Comments [facility],non-owned Affiliates and Associated Physician Practices is amultiple site organization consisting of ambulatory clinics and hospital sitesin [place], [place], [place] and [place]. This disclosure is being madepursuant to the Care Everywhere program and may not contain all information available regarding this patient. Last updated 17.[facility] Allergies No known active allergies Medications * [...] A1c POCT 6.6(A) 3.4 - 6.1 % [facility] POCT TEST[facility] QC Verified Yes Yes [facility] PO CT TESTING Blood specimen (specimen) BLOOD SPECIMEN / Unknown 10/29/2015 11:54 AM CDT Irlanda Li MD LAB - POINT OF CARE ORDERABLES Performing Organization Address City/State/[facility] Co de Phone Number [facility] [address] [place] [address] * MICROALB/CREAT RATIO URINE RANDOM PANEL (10/29/2015 11:52 AM CDT) Creatinine Urine 176.93 mg/dL 10/29/2015 1:46 PM CDT [facility] Microalbumin Urine <0.5 <1.7 mg/dL 10/29/2015 1:46 PM CDT [facility] Microalbumin/Crea tinine Ratio <30 mg/g 10/29/2015 1:46 PM CDT [facility] Comment: Microalb/Creatinine Ratio= <3 Urine URINE SPECIMEN OBTAINED BY CLEAN CATCH PROCEDURE / Unknown 10/29/2015 11:52 AM CDT 10/29/2015 12:10 PM T Irlanda Li MD LAB - URINE CHEMISTR Y ORDERABLES Performing Organization Address City/State/[facility] Co de Phone Number [facility] [place] [address] * (ABNORMAL) BASIC METABOLIC PANEL (CALCIUM TOTAL) (10/29/2015 11:52 AM CDT) Glucose 115(H) 70 - 105 mg/dL 10/29/2015 12:52 PM [facility] Sodium 140 136 - 145 mmol/L 10/29/2015 12:52 PM [facility] Potassium 3.8 3.5 - 5.1 mmol/L 10/29/2015 12:52 PM [facility] Chloride 103 98 - 107 mmol/L 10/29/2015 12:52 PM [facility] CO2 27 20 - 28 mmol/L 10/29/2015 12:52 PM [facility] Calcium 9.37 9.08 - 10.48 mg/dL 10/29/2015 12:52 PM [facility] Anion Gap 10 5 - 20 mmol/L 10/29/2015 12:52 PM [facility] BUN 9.3 5.3 - 18.7 mg/dL 10/29/2015 12:52 PM [facility] Creatinine 0.82 0.61 - 1.07 mg/dL 10/29/2015 12:52 PM [facility] eGFR by MDRD mL/min/1.7 3m2 10/29/2015 12:52 PM [facility] Comment: eGFR calculations are not performed for children under 18 years old. eGFR by MDRD mL/min/1.7 3m2 10/29/2015 12:52 PM [facility] Comment: eGFR calculations are not performed for children under 18 years old. Blood BLOOD SPECIMEN / Unknown 10/29/2015 11:52 AM CDT 10/29/2015 12:09 PM CDT Irlanda Li MD LAB - CHEMISTRY SLIME MCINTYRE [facility] [place] [address] from Last 3 Months or Most Recently Relevant to Health Maintenance Care Teams Pick Up Worker Relationship Specialty Start Date End Date Brynn Perez MD [address] [place] [id number] PCP - General 06/16/21
--- OUTSIDE RECORDS SUMMARY | 2024-04-11 02:26 | XMS_ITS | Patient Health Summary ---
Author Organization [facility] Address [address] [place] [address] Care Team Providers Care Transcript Clerk Name Role Phone Brynn Perez MD Primary Care Provider + [phone] Note from [facility],non-owned Affiliates and Associated Physician Practices is amultiple site organization consisting of ambulatory clinics and hospital sitesin [place], [place], [place] and [place]. This disclosure is being madepursuant to the Care Everywhere program and may not contain all information available regarding this patient. Last updated 17.[facility] Allergies No known active allergies Medications * [...] complication, without long-term current use of insulin ([facility]) * BASIC METABOLIC PANEL (CALCIUM TOTAL)(Performed 10/29/2015) Performed for Type 2 diabetes mellitus without complication, without long-term current use of insulin ([facility]) * ALT(Performed 10/29/2015) Performed for Type 2 diabetes mellitus without complication, without long-term current use of insulin ([facility]) * VITAMIN D 25-HYDROXY(Performed 06/25/2015) Performed for Disorder of iron metabolism * FERRITIN(Performed 06/25/2015) Performed for Restless legs syndrome (RLS) * HEMOGLOBIN A1C - POCT (IP) BEAKER(Performed 06/25/2015) Performed for Type 2 diabetes mellitus without complication ([facility]) * FERRITIN(Performed 01/17/2015) Performed for Disorder of [...] 01/17/2015) Performed for Type 2 diabetes mellitus ([facility]) * VITAMIN D 25-HYDROXY(Performed 08/03/2014) Performed for Sleep disturbance * IRON + TIBC PANEL(Performed 08/03/2014) Performed for Other disorders of iron metabolism * FERRITIN(Performed 08/03/2014) Performed for Other disorders of iron metabolism * HEMOGLOBIN A1C - POCT (IP) BEAKER(Performed 08/02/2014) Performed for Type 2 diabetes mellitus without complication ([facility]) * MICROALB/CREAT RATIO URINE RANDOM PANEL(Performed 08/02/2014) Performed for Type 2 diabetes mellitus without complication ([facility]) * IRON + TIBC PANEL(Performed 08/31/2013) Performed [...] diabetes mellitus (HCC) * AMB CONSULT TO NON DESTRUCTIVE TESTING SUPERVISOR(Performed 12/29/2011) Performed for Type 2 diabetes mellitus [...] Arrhythmia Results * SPLIT NIGHT STUDY (09/26/2017) [facility] Linked Results See Linked Results SLEEP CENTER 09/26/2017 [facility] Ellsworth [facility] O RDERABLES SLEEP CENTER * (ABNORMAL) FERRITIN (10/29/2015 2:27 PM CDT) Only the most recent of9 resultswithin the time period is included. [facility] Ferritin 216(H) 10 - 120 ng/mL 10/29/2015 3:52 PM CDT [facility] Blood BLOOD SPECIMEN / Unknown Lab Venipuncture / Unknown 10/29/2015 2:27 PM CDT 10/29/2015 2:35 PM CDT [facility] LAB - CHEMISTR Y ORDERABLES [facility] [address] [place] [address] * (ABNORMAL) HEMOGLOBIN A1C - POCT (IP) BEAKER (10/29/2015 11:54 AM CDT) Only the most recent of9 resultswithin the time period is included. [facility] Hemoglobin A1c POCT 6.6(A) 3.4 - 6.1 % [facility] POCT TESTING QC Verified Yes Yes [facility] PO CT TESTING Blood specimen (specimen) BLOOD SPECIMEN / Unknown 10/29/2015 11:54 AM CDT Irlanda Li MD LAB - POINT OF CARE ORDERABLES Performing Organization Address [facility] Co de Phone Number [facility] POCT TESTING [facility] [phone] * MICROALB/CREAT RATIO URINE RANDOM PANEL (10/29/2015 11:52 AM CDT) Only the most recent of4 resultswithin the time period is included. Creatinine Urine 176.93 mg/dL 10/29/2015 1:46 PM CDT [facility] Microalbumin Urine <0.5 <1.7 mg/dL 10/29/2015 1:46 PM CDT [facility] Microalbumin/Crea tinine Ratio <30 mg/g 10/29/2015 1:46 PM T [facility] Comment: Microalb/Creatinine Ratio= <3 Urine URINE SPECIMEN OBTAINED BY CLEAN CATCH PROCEDURE / Unknown 10/29/2015 11:52 AM CDT 10/29/2015 12:10 PM CDT Irlanda Li MD LAB - URINE CHEMISTR Y ORDERABLES Performing Organization Address [facility] Co de Phone Number [facility] [address] [place] [address] * (ABNORMAL) BASIC METABOLIC PANEL (CALCIUM TOTAL) (10/29/2015 11:52 AM CDT) Glucose 115(H) 70 - 105 mg/dL 10/29/2015 12:52 PM CDT [facility] Sodium 140 136 - 145 mmol/L 10/29/2015 12:52 PM CDT [facility] Potassium 3.8 3.5 - 5.1 mmol/L 10/29/2015 12:52 PM CDT [facility] Chloride 103 98 - 107 mmol/L 10/29/2015 12:52 PM CDT [facility] CO2 27 20 - 28 mmol/L 10/29/2015 12:52 PM CDT [facility] Calcium 9.37 9.08 - 10.48 mg/dL 10/29/2015 12:52 PM CDT [facility] Anion Gap 10 5 - 20 mmol/L 10/29/2015 12:52 PM T [facility] BUN 9.3 5.3 - 18.7 mg/dL 10/29/2015 12:52 PM [facility] Creatinine 0.82 0.61 - 1.07 mg/dL 10/29/2015 12:52 PM T [facility] eGFR by MDRD mL/min/1.7 3m2 10/29/2015 12:52 PM [facility] Comment: eGFR calculations are not performed for children under 18 years old. eGFR by MDRD mL/min/1.7 3m2 10/29/2015 12:52 PM [facility] Comment: eGFR calculations are not performed for children under 18 years old. Blood BLOOD SPECIMEN / Unknown 10/29/2015 11:52 AM CDT 10/29/2015 12:09 PM CDT Irlanda Li MD LAB - CHEMISTRY SLIME MCINTYRE Performing Organization Address City/[facility]/ZIP Co de Phone Number [facility] [address] [place] [phone] * ALT (10/29/2015 11:52 AM CDT) ALT 34 8 - 65 U/L 10/29/2015 12:52 PM T [facility] Blood BLOOD SPECIMEN / Unknown 10/29/2015 11:52 AM CDT 10/29/2015 12:09 PM CDT Irlanda Li MD LAB - CHEMISTRY ORDSantos MCINTYRE Performing Organization Address [facility] Co de Phone Number [facility] [address] [place] [phone] * (ABNORMAL) LIPID PROFILE (10/29/2015 11:52 AM CDT) Only the most recent of2 resultswithin the time period is included. Cholesterol 172(H) <170 mg/dL 10/29/2015 12:51 PM T [facility] Triglycerides 153 46 - 227 mg/dL 10/29/2015 12:51 PM CDT [facility] HDL Cholesterol 50 >40 mg/dL 10/29/2015 12:51 PM CDT [facility] LDL Calculated 91 <100 mg/dL 10/29/2015 12:51 PM T [facility] VLDL Calculated 31 12 - 38 mg/dL 10/29/2015 12:51 PM CDT [facility] Chol HDL Ratio 3.4 <=5.0 10/29/2015 12:51 PM T [facility] Blood BLOOD SPECIMEN / Unknown 10/29/2015 11:52 AM CDT 10/29/2015 12:09 PM CDT Narrative [facility] - 10/29/2015 12:51 PM CDT Lipid Profile Comment: Adult references ranges are the recommendation of the [place] [employer] , for those patients >18 [...] Irlanda Li MD LAB - CHEMISTRY SLIME [facility] Organization Address City/State/ZIP Co de Phone Number [facility] [address] [place] [address] * (ABNORMAL) VITAMIN D (25-HYDROXY) (06/25/2015 2:13 PM CDT) Only the most recent of3 resultswithin the time period is included. Vitamin D, 25 Hydroxy 20.14(L) 30 - 100 ng/mL 06/25/2015 7:06 PM T [facility] Blood BLOOD SPECIMEN / Unknown Lab Venipuncture / Unknown 06/25/2015 2:13 PM CDT 06/25/2015 4:03 PM CDT Narrative [facility] - 06/25/2015 7:06 PM CDT Vitamin D Status: Deficiency <20 ng/mL Insufficiency 20-30 ng/mL Sufficiency 30-100 ng/mL Toxicity >100 ng/mL Geri Ellsworth [employer]ILDLAND FI[employer]HTER SPECIALIST-CARDIAC/VASCULAR SONOGRAPHER LAB - CHEMISTR Y ORDERABLES [facility] [address] [place] [address] * LH PEDIATRIC (01/17/2015 2:23 PM FAMILY DEVELOPMENT EXTENSION SPECIALIST) [facility] Pediatric See Scanned Report 01/22/2015 3:23 PM FAMILY DEVELOPMENT EXTENSION SPECIALIST [facility] Blood specimen (specimen) BLOOD SPECIMEN / Unknown Lab Venipuncture / Unknown 01/17/2015 2:23 PM FAMILY DEVELOPMENT EXTENSION SPECIALIST 01/17/2015 4:13 PM FAMILY DEVELOPMENT EXTENSION SPECIALIST Irlanda Li MD LAB - CHEMISTRY SLIME MCINTYRE Performing Organization Address [facility] Co de Phone Number [facility] [address] [place] [address] * ESTRADIOL ULTRA SENSITIVE (01/17/2015 2:23 PM FAMILY DEVELOPMENT EXTENSION SPECIALIST) [facility] Estradiol Ultrasensitive 47.3 pg/mL 01/21/2015 9:13 AM FAMILY DEVELOPMENT EXTENSION SPECIALIST [facility] ([facility]) Comment: Reference interval of estradiol in serum of girls. Dao Stage Estradiol I <56.0 II 2.0-133.0 III 12.0-277.0 IV and V 2.0-259.0 Age Group: 7 to 9 <36.0 10 to 12 1.0-87.0 13 to 15 9.0-249.0 16 to 17 2.0-266.0 REFERENCE INTERVAL: Estradiol by TMS Access complete set of age- and/or gender-specific reference intervals for this test in the [facility] Test Directory ([employer]). Test developed and characteristics determined by [employer]. See Compliance Statement B: [employer]/CS Blood specimen (specimen) BLOOD SPECIMEN / Unknown Lab Venipuncture / Unknown 01/17/2015 2:23 PM FAMILY DEVELOPMENT EXTENSION SPECIALIST 01/17/2015 3:31 PM FAMILY DEVELOPMENT EXTENSION SPECIALIST Irlanda Li MD LAB - CHEMISTRY SLIME MCINTYRE [place] ([address] * PROLACTIN (01/17/2015 2:23 PM FAMILY DEVELOPMENT EXTENSION SPECIALIST) [facility] Prolactin 6.61 ng/mL 01/17/2015 6:59 PM FAMILY DEVELOPMENT EXTENSION SPECIALIST [facility] Blood BLOOD SPECIMEN / Unknown Lab Venipuncture / Unknown 01/17/2015 2:23 PM FAMILY DEVELOPMENT EXTENSION SPECIALIST 01/17/2015 3:30 PM FAMILY DEVELOPMENT EXTENSION SPECIALIST Narrative [facility] - 01/17/2015 6:59 PM FAMILY DEVELOPMENT EXTENSION SPECIALIST Prolactin Reference Interval: Female Non: 2.80 - 29.20 ng/mL Female : 9.70 - 208.50 ng/mL Female Postmenopausal: 1.80 - 20.39 ng/mL Male: 2.10 - 17.70 ng/mL Irlanda Li MD LAB - CHEMISTRY SLIME MCINTYRE Performing Organization Address [facility] Co de Phone Number [facility] [address] [place] [address] * FSH (01/17/2015 2:23 PM FAMILY DEVELOPMENT EXTENSION SPECIALIST) [facility] FSH 4.22 0.2 - 8.0 mIU/mL 01/17/2015 4:23 PM FAMILY DEVELOPMENT EXTENSION SPECIALIST [facility] Blood BLOOD SPECIMEN / Unknown Lab Venipuncture / Unknown 01/17/2015 2:23 PM FAMILY DEVELOPMENT EXTENSION SPECIALIST 01/17/2015 3:30 PM FAMILY DEVELOPMENT EXTENSION SPECIALIST Narrative [facility] - 01/17/2015 4:23 PM FAMILY DEVELOPMENT EXTENSION SPECIALIST FSH Reference Range Normal Female Menses: Normally menstruating: Follicular 3.0 - 8.1 mIU/mL Midcycle Peak 2.6 - 16.7 mIU/mL Luteal 1.4 - 5.5 mIU/mL Postmenopausal 26.7 - 133.4 mIU/mL Irlanda Li MD LAB - CHEMISTRY SLIME MCINTYRE [facility] [place] [address] * (ABNORMAL) TESTOSTERONE FREE FEM/CHLD HYPOGNDL MALE (01/17/2015 2:23 PM FAMILY DEVELOPMENT EXTENSION SPECIALIST) [facility] Testosterone Free LC-MS 23.9(H) 1.2 - 7.5 pg/mL 01/20/2015 11:27 PM FAMILY DEVELOPMENT EXTENSION SPECIALIST [facility] [employer] ([facility]) Comment: Testosterone, Free LC-MS/MS: Dao Stage Reference [...] reference intervals for this test in the [employer] [facility] Test Directory ([employer]). Test developed and characteristics determined by [employer]. See Compliance Statement B: [employer]/ Blood specimen (specimen) BLOOD SPECIMEN / Unknown Lab Venipuncture / Unknown 01/17/2015 2:23 PM FAMILY DEVELOPMENT EXTENSION SPECIALIST 01/17/2015 3:30 PM FAMILY DEVELOPMENT EXTENSION SPECIALIST Irlanda Li MD LAB - CHEMISTRY SLIME MCINTYRE [facility] Organization Address City/State/ZIP Co de Phone Number [facility] [employer] [facility]) [address] * IRON + TIBC PANEL (08/03/2014 11:41 AM CDT) Only the most recent of3 resultswithin the time period is included. Iron 99 30 - 160 ug/dL 08/04/2014 2:26 PM CDT PARosalind ([facility]) Comment: REFERENCE INTERVAL: Iron, Serum or Plasma Access complete set of age- and/or gender-specific reference intervals for this test in the [employer] [facility] Test Directory ([employer]). TIBC 314 250 - 400 ug/dL 08/04/2014 2:26 PM CDT [facility] ([facility]) Comment: REFERENCE INTERVAL: Iron Binding Capacity Total Access complete set of age- and/or gender-specific reference intervals for this test in the [facility] Laboratory Test Directory ([employer]). Transferrin Saturation % 32 20 - 50 %sat 08/04/2014 2:26 PM CDT [facility] [employer] ([facility]) Blood specimen (specimen) BLOOD SPECIMEN / Unknown Lab Venipuncture / Unknown 08/03/2014 11:41 AM CDT 08/03/2014 12:06 PM CDT Geri Ellsworth [employer]HTER SPECIALIST-CARDIAC/VASCULAR SONOGRAPHER LAB - CHEMISTR Y ORDERABLES [facility]) [address] [place] [address], [facility] * (ABNORMAL) COMPREHENSIVE METABOLIC PANEL (04/27/2013 2:24 PM CDT) Only the most recent of3 resultswithin the time period is included. Glucose 131(H) 70 - 105 mg/dL 04/27/2013 3:33 PM [facility] Sodium 146(H) 136 - 145 mmol/L 04/27/2013 3:33 PM [facility] Potassium 3.9 3.5 - 5.1 mmol/L 04/27/2013 3:33 PM [facility] Chloride 108(H) 98 - 107 mmol/L 04/27/2013 3:33 PM [facility] CO2 28 20 - 28 mmol/L 04/27/2013 3:33 PM [facility] Calcium 9.18 8.92 - 10.32 mg/dL 04/27/2013 3:33 PM [facility] Anion Gap 10 5 - 20 mmol/L 04/27/2013 3:33 PM [facility] BUN 11.1 6.1 - 21.0 mg/dL 04/27/2013 3:33 PM [facility] Creatinine 0.78 0.62 - 1.00 mg/dL 04/27/2013 3:33 PM [facility] eGFR by MDRD mL/min/1.7 3m2 04/27/2013 3:33 PM [facility] Comment:eGFR calculations ar e not performed for children under 18 years old. eGFR by MDRD mL/min/1.7 3m2 04/27/2013 3:33 PM CDT [facility] Comment:eGFR calculations ar e not performed for children under 18 years old. Alkaline Phosphatase 100 100 - 390 U/L 04/27/2013 3:33 PM CDT [facility] ALT 36 8 - 65 U/L 04/27/2013 3:33 PM CDT [facility] AST 26 3 - 35 U/L 04/27/2013 3:33 PM CDT [facility] Protein Total 6.9 6.4 - 8.5 gm/dL 04/27/2013 3:33 PM CDT [facility] Albumin 3.9 3.3 - 5.0 gm/dL 04/27/2013 3:33 PM CDT [facility] Bilirubin Total 0.1(L) 0.3 - 1.2 mg/dL 04/27/2013 3:33 PM CDT [facility] Blood BLOOD SPECIMEN / Unknown Lab Venipuncture / Unknown 04/27/2013 2:24 PM CDT 04/27/2013 3:01 PM CDT Melba Garcia WILDLAND FIRE FIGHTER SPECIALISTTARAV[facility] LAB - CHEMISTRY ORDERABLES Performing Organization Address City/[facility]/ZIP Co de Phone Number [facility] [place] [phone] * LAB RESULTS ORDER (11/24/2011 8:37 AM CDT) Narrative Transcriptions Document, Scanned - 11/24/2011 8:36 AM CDT Scanned Document LAB - THERAPEUTIC DR SHERWIN MONITORING ORDERABLES * (ABNORMAL) GLUCOSE (11/11/2011 10:14 AM CDT) Glucose 199(H) 70 - 105 mg/dL 11/11/2011 11:11 AM CDT [facility] Blood specimen (specimen) BLOOD SPECIMEN / Unknown 11/11/2011 10:14 AM CDT 11/11/2011 10:22 AM CDT Melba Garcia [facility] LAB - CHEMISTRY ORDERABLES [facility] [address] [place] [address] * HYDROXYPROGESTERONE 17- (11/11/2011 10:14 AM CDT) 17 Hydroxyprogesterone 80 ng/dL 5:03 PM CDT [facility] [employer] Comment: 17-HYDROXYPROGESTERONE: Dao Stages, Females Age 7-17 Doa Stage I Less than or equal to [...] CDT 11/11/2011 10:22 AM CDT Melba Garcia [facility] LAB - CHEMISTRY ORDERABLES [facility] [address] [place] [address] * SPLIT NIGHT PROTOCOL (10/25/2011) Geri Ellsworth [facility] SLEEP CENTER O RDERABLES * PATHOLOGY/CYTOLOGY REPORT ORDER (07/30/2011 7:03 AM CDT) Narrative Transcriptions Document, Scanned - 07/30/2011 7:03 AM CDT Scanned Document LAB - PATHOLOGY/CYTO LOGY ORDERABLES * GROSS EXAM PATHOLOGY (STL) (07/28/2011 3:19 PM CDT) Case Report Surgical Pathology Report Case: [id number] Authorizing Provider: Vidal Levin MD Ordering Provider: Vidal Levin MD Ordering Location: [facility] Collected: 07/28/2011 3:19 PM Pathologist: Vikas Smyth MD Received: 07/29/2011 6:03 AM Signed Out: 07/29/2011 7:45 PM (Final) Specimen: Tonsil(s) 07/29/2011 7:45 PM T [facility] Final Diagnosis GROSS DIAGNOSIS: PALATINE TONSILS. 07/29/2011 7:45 PM [facility] Clinical History The patient is a 11-year-old girl with adenotonsillar hypertrophy and obstructive sleep apnea. 07/29/2011 7:45 PM T [facility] Gross Description Submitted fixed in formalin [...] are taken. (CT/mal) 07/29/2011 7:45 PM T [facility] Synoptic Report 07/29/2011 7:45 PM [facility] Disclaimer This case has been personally reviewed and interpreted by the attending (teaching) pathologist. 07/29/2011 7:45 PM [facility] Miscellaneous samples (specimen) SPECIMEN FROM TONSIL / Unknown 07/28/2011 3:19 PM CDT 07/29/2011 6:03 AM CDT Vidal Levin MD LAB - PATHOLOGY/C YTOLOGY ORDERABLES Performing Organization Address [facility] Co de Phone Number [facility] [address] [place] [address] * PEDIATRIC DIAGNOSTIC POLYSOMNOGRAM (05/25/2011) Keturah Putnam MD SLEEP CENTER ORDERAB LES * EKG 15-LEAD (03/12/2011) Only the most recent of2 resultswithin the time period is included. Arabella Sanchez MD ECG ORDERABLES * CARDIAC EKG ORDER (03/09/2011 8:05 AM FAMILY DEVELOPMENT EXTENSION SPECIALIST) Narrative Transcriptions Document, Scanned - 03/09/2011 8:05 AM CST Scanned Document CARDIAC SERVICES ORD ERABLES * HCG URINE QUALITATIVE (03/06/2011 5:40 PM FAMILY DEVELOPMENT EXTENSION SPECIALIST) HCG Qual Urine Negative Negative [facility] Urine specimen (specimen) URINE / Unknown 03/06/2011 5:40 PM FAMILY DEVELOPMENT EXTENSION SPECIALIST 03/06/2011 5:41 PM FAMILY DEVELOPMENT EXTENSION SPECIALIST Arabella Sanchez MD LAB - URINALYSIS ORD ERABLES Performing Organization Address [facility] Co de Phone Number [facility] [address] [place] [address] * (ABNORMAL) CBC W AUTO DIFFERENTIAL (03/06/2011 5:31 PM FAMILY DEVELOPMENT EXTENSION SPECIALIST) WBC 3.65(L) 4.5 - 14.5 K/cumm [facility] RBC 4.68 4.00 - 5.20 mill/cumm [facility] Hemoglobin 13.9 11.5 - 15.5 gm/dl [facility] Hematocrit 39.4 35.0 - 45.0 % [facility] MCV 84.2 77.0 - 95.0 cu microns [facility] MCH 29.7 25.0 - 33.0 uug [facility] MCHC 35.3 31.0 - 37.0 % [facility] RDW 12.7 % [facility] MPV 10.5 fl [facility] Platelet Count 239 100 - 400 K/cumm [facility] Granulocytes % 25.5 24 - 66 % [facility] Lymphocytes % 60.3 22 - 61 % [facility] Monocytes % 11.5 3 - 15 % [facility] Eosinophils % 2.2 0 - 10 % [facility] Basophils % 0.5 0 - 1 % [facility] Comment Manual Diff Automated Diff Performed [facility] Blood specimen (specimen) BLOOD SPECIMEN / Unknown 03/06/2011 5:31 PM FAMILY DEVELOPMENT EXTENSION SPECIALIST 03/06/2011 5:33 PM FAMILY DEVELOPMENT EXTENSION SPECIALIST Arabella Sanchez MD LAB - HEMATOLOGY ORD ERABLES Performing Organization Address City/State/[facility] Co de Phone Number [facility] [place] [phone] * ECHO CONSULT - PEDIATRIC (12/11/2010 2:03 PM CDT) 12/11/2010 2:03 PM CDT Narrative [facility] CARDIAC SERVICES - 12/11/2010 2:51 PM CDT , Transthoracic Echocardiogram 2D, M-mode, Doppler, and Color Doppler Name: DIANE RIVERO MR #: [id number] Study date: 12/11/2010 Age: 10 years : 2000 Gender: Female Ht: 63.7 in / 161.8 cm Wt: 158 lb / 71.8 kg BSA: 1.76 m HR: BP: / age: PHONG: Maternal age: SHEARER OPERATOR: Arie Walker MD PEDIATRIC ECHO MEDICAL REVIEWER: Kamilah Hernandez RDCS History: Abnormal EKG and [...] Color Doppler Name: DIANE RIVERO MR #: [id number] Study date: 12/11/2010 Age: 10 years : 2000 Gender: Female Ht: 63.7 in / 161.8 cm Wt: 158 lb / 71.8 kg BSA: 1.76 m HR: BP: / age: PHONG: Maternal age: SHEARER OPERATOR: Arie Walker MD PEDIATRIC ECHO MEDICAL REVIEWER: Kamilah Hernandez RDCS History: Abnormal EKG and [...] 50.1 ml Arie Walker MD ECHO ORDERABLES [facility] [address] [phone] * XR CHEST PA AND LATERAL (11/20/2010 [...] Lopez MD DIAGNOSTIC IMAGING ORDERABLES Care Teams Transcript Clerk Relationship Specialty Start Date End Date Brynn Perez MD [address] [place] [phone] PCP - General 06/16/21
--- OUTSIDE RECORDS SUMMARY | 2024-04-11 02:26 | XMS_ITS | Clinical Summary ---
Author Organization [facility] Address [address] [place] [id number] Care Team Providers Care Ict Help Desk Technician Name Role Phone None, Provider MD Primary [...] MEDICAID MEDICAL REIMBURSEMENTS OF [place] Care Teams Ict Help Desk Technician Relationship Specialty Start Date End Date None, Provider, PCP - General 10/31/21
--- OUTSIDE RECORDS SUMMARY | 2024-04-11 02:26 | XMS_ITS | Referral Summary ---
Author Organization [facility] Address [address] [facility] [place] [address] Care Team Providers Care Information Coder Name Role Phone Brynn Perez MD Primary Care Provider [phone] [facility],non-owned Affiliates and Associated Physician Practices is amultiple site organization consisting of ambulatory clinics and hospital sitesin [place], [place], [place] and [place]. This disclosure is being madepursuant to the Care Everywhere program and may not contain all information available regarding this patient. Last updated 17.[facility] [employer] Allergies No known active allergies Medications * [...] A1c POCT 6.6(A) 3.4 - 6.1 % [facility] POCT TESTING QC Verified Yes Yes [facility] PO CT TESTING Blood specimen (specimen) BLOOD SPECIMEN / Unknown 10/29/2015 11:54 AM CDT Irlanda Li MD LAB - POINT OF CARE ORDERABLES [facility] POCT TESTING [facility] [place], [place] [id number] [place] [address] * MICROALB/CREAT RATIO URINE RANDOM PANEL (10/29/2015 11:52 AM CDT) Creatinine Urine 176.93 mg/dL 10/29/2015 1:46 PM T [facility] Microalbumin Urine <0.5 <1.7 mg/dL 10/29/2015 1:46 PM T [facility] Microalbumin/Crea tinine Ratio <30 mg/g 10/29/2015 1:46 PM T [facility] Comment: Microalb/Creatinine Ratio= <3 Urine URINE SPECIMEN OBTAINED BY CLEAN CATCH PROCEDURE / Unknown 10/29/2015 11:52 AM CDT 10/29/2015 12:10 PM CDT Irlanda Li MD LAB - URINE CHEMISTR Y ORDERABLES Performing Organization Address City/State/[facility] de Phone Number [facility] [address] [place] [address] * (ABNORMAL) BASIC METABOLIC PANEL (CALCIUM TOTAL) (10/29/2015 11:52 AM CDT) Glucose 115(H) 70 - 105 mg/dL 10/29/2015 12:52 PM T [facility] Sodium 140 136 - 145 mmol/L 10/29/2015 12:52 PM T [facility] Potassium 3.8 3.5 - 5.1 mmol/L 10/29/2015 12:52 PM [facility] Chloride 103 98 - 107 mmol/L 10/29/2015 12:52 PM T [facility] CO2 27 20 - 28 mmol/L 10/29/2015 12:52 PM T [facility] Calcium 9.37 9.08 - 10.48 mg/dL 10/29/2015 12:52 PM T [facility] Anion Gap 10 5 - 20 mmol/L 10/29/2015 12:52 PM [facility] BUN 9.3 5.3 - 18.7 mg/dL 10/29/2015 12:52 PM T [facility] Creatinine 0.82 0.61 - 1.07 mg/dL 10/29/2015 12:52 PM [facility] eGFR by MDRD mL/min/1.7 3m2 10/29/2015 12:52 PM CDT [facility] Comment: eGFR calculations are not performed for children under 18 years old. eGFR by MDRD mL/min/1.7 3m2 10/29/2015 12:52 PM CDT [facility] Comment: eGFR calculations are not performed for children under 18 years old. Blood BLOOD SPECIMEN / Unknown 10/29/2015 11:52 AM CDT 10/29/2015 12:09 PM CDT Irlanda Li MD LAB - CHEMISTRY SLIME MCINTYRE [facility] [address] [place] [address] from Last 3 Months or Most Recently Relevant to Health Maintenance Care Teams Information Coder Relationship Specialty Start Date End Date Brynn Perez MD [address] [place] [id number] PCP - General 06/16/21
== END 2024-04-11 02:35 | disposition home or self-care (01) ==
LOC: ANHED 02:24
PROVIDERS: Emergency Provider Physician Assistant
DX: H92.01 Otalgia, right ear (principal)
CPT/HCPCS: 99281

== ENCOUNTER 2025-01-31 08:09 | Emergency (ER) | payer SELFPAY ==
--- NOTE | ~2025-01-31 | XR_ITS ---
Lumbar spine series Indication: Back pain Comparison: CT lumbar spine 11/04/2021 Technique: 3 views lumbar spine Findings: 5 nonrib-bearing lumbar-type vertebral bodies. Sacral fracture. No other fracture. No listhesis. Vertebral bodies normal height. Disc spaces maintained. No significant degenerative changes. SI joints congruent. Sacrum intact. IMPRESSION: 1. Age-indeterminate sacral fracture. 2. No other acute abnormality. Reviewed, dictated and finalized at location R. EY ENGINEER
[2025-01-31 08:15] VITALS: BP 118/84; PULSE 90; RESP 18; TEMP 36.4; O2SAT 100
--- OUTSIDE RECORDS SUMMARY | 2025-01-31 08:22 | XMS_ITS | Clinical Summary ---
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 Name Role Phone Wayne Richter NP Primary Care Provider [phone] Allergies No known active allergies Medications metoprolol tartrate (LOPRESSOR) 25 mg immediate release tablet Take 1 tablet (25 mg total) by mouth 2 (two) times a day 180 tablet 3 12/28/2024 Active Active Problems Problem Noted Date Diagnosed Date Hyperlipidemia 12/28/2024 VIN (obstructive sleep apnea) 12/27/2024 Morbid obesity 12/27/2024 Palpitations 12/18/2024 Chest pain, unspecified type 11/02/2024 Encounters Date Type Department Care Team Description 12/28/2024 1:15 PM CLERICAL SECRETARY Office Visit [place] [facility] at [address] [place] [address] Wayne Richter NP Chest pain, unspecified type (Primary Dx); Palpitations; VIN (obstructive sleep apnea); Morbid obesity (HCC); Hyperlipidemia, unspecified hyperlipidemia type; Dyslipidemia 12/01/2024 12:00 PM CDT - 12/01/2024 12:01 PM CDT Emergency [facility] Emergency Department [address] [place] [id number] Zay Taylor MD Other chest pain (Primary Dx) Discharge Disposition: Discharge to home or self care 11/06/2024 9:00 AM CDT - 11/06/2024 11:59 PM CDT Hospital Encounter [facility] Cardiology [address] [place] [address] Chest pain, unspecified type Discharge Disposition: Discharge to home or self care 11/03/2024 Orders Only [facility] [address] [place] [address] Pema La 11/02/2024 4:57 PM CDT - 11/03/2024 2:29 PM CDT Hospital Encounter [facility] IMU [address] [place] [address] Basil Kenyon MD Burt, Jonathan S., MD Chest pain, unspecified type (Primary Dx) Discharge Disposition: Discharge to home or self care from Last 3 Months Social History Tobacco Use Types Packs/Day Years Used Date Smoking Tobacco: Never Smokeless Tobacco: Never Tobacco Cessation:Counseling Given: Not Answered Alcohol Use Standard Drinks/Week Comments Yes 0 (1 standard drink = 0.6 oz pur e alcohol) Social Connection and Isolation Panel Answer Date Recorded In a typical week, how many times do you talk on the phone with family, friends, or neighbors? More than three times a week 11/03/2024 How often do you get togethe r with friends or relatives? More than three times a week 11/03/2024 How often do you attend chur ch or anabaptism services? Patient declined 11/03/2024 Do you belong to any clubs o r organizations such as temple groups, unions, fraternal or athletic groups, or school groups? Patient declined 11/03/2024 How often do you attend meet ings of the clubs or organizations you belong to? Patient declined 11/03/2024 Are you , , di vorced, , never , or living with a partner? Never 11/03/2024 AUDIT-C Answer Date Recorded Q1: How often do you have a drink containing alc ohol? Monthly or less 11/03/2024 Q2: How many drinks containi ng alcohol do you have on a typical day when you are drinking? 1 or 2 11/03/2024 Q3: How often do you have si x or more drinks on one occasion? Less than monthly 11/03/2024 Overall Financial Resource Strain (CARDIA) Answe r Date Recorded How hard is it for you to pa y for the very basics like food, housing, medical care, and heating? Somewhat hard 11/03/2024 Hunger Vital Sign Answer Date Recorded Within the past 12 months, y ou worried that your food would run out before you got the money to buy more. Never true 11/04/19 25 Within the past 12 months, t he food you bought just didn't last and you didn't have money to get more. Never true 11/03/2024 PRAPARE - Transportation Answer Date Re corded In the past 12 months, has l ack of transportation kept you from medical appointments or from getting medications? No 10/16 In the past 12 months, has l ack of transportation kept you from meetings, work, or from getting things needed for daily living? No 11/03/2024 Housing Stability Vital Sign Answer Harjinder e Recorded In the last 12 months, was t here a time when you were not able to pay the mortgage or rent on time? No 11/03/2024 In the past 12 months, how m any times have you moved where you were living? 0 11/03/2024 At any time in the past 12 m [facility], were you homeless or living in a [place] facility (including now)? No 11/03/2024 [facility] Utilities Answer Date Recorded In the past 12 months has th e electric, gas, oil, or water company threatened to shut off services in your home? No 11/03/2024 Personal Safety Answer Date Recorded Have you ever been in or are you currently in a harmful physical or emotional relationship or is someone making you feel afraid or unsafe? Denies 12/01/2024 Comments No Sex and Gender Information Value Date Recorded Sex Assigned at Not on file Legal Sex Female 7:02 PM CLERICAL SECRETARY Gender Identity Not on file Sexual Orientation Not on file Last Filed Vital Signs Vital Sign Reading Time Taken Comments Blood Pressure 114/76 12/28/2024 1:12 PM CLERICAL SECRETARY Pulse 89 12/28/2024 1:12 PM CLERICAL SECRETARY Temperature 36.1 C (97 F) 12/01/2024 11:34 AM CDT Respiratory Rate 18 12/28/2024 1:12 PM CLERICAL SECRETARY Oxygen Saturation 99% 12/01/2024 11:34 AM CDT Inhaled Oxygen Concentration - - Weight 150.1 kg (331 lb) 12/28/2024 1:12 PM CLERICAL SECRETARY Height 170.2 cm (5' 7) 12/28/2024 1:12 PM CLERICAL SECRETARY Body Mass Index 51.84 12/28/2024 1:12 PM CLERICAL SECRETARY Plan of Treatment Health Maintenance Due Date Last Done Comments Cervical Cancer Screening 1999 Depression Screening 1999 Hepatitis C Screening 1999 Regular Well Visit/Exam 18-64 05/04/2017 Covid-19 Vaccine (3 - 2024-2 6 season) 2024 02/10/2022, 04/22/2020 Influenza Vaccine (#1) 2024 , 11/22/2017, 12/12/2016, Additional history exists DTaP/Tdap/Td Vaccine (8 - Td or Tdap) 01/17/2032 01/16/2022, 11/04/2010, 09/30/2004, Additional history exists Pneumococcal vaccine <65 Completed 001, 04/30/2000, 1999 Varicella Vaccines Completed 02/03/2007, 11/01/2000 Hepatitis B Screening Completed 04/30/2010 , 04/30/2000, 1999, Additional history exists HPV Vaccines Completed 05/07/2011, 12/17, 11/04/2010 Procedures Procedure Name Priority Date/Time Associated Diagnosis Comments MCT - MOBILE CARDIAC TELEMETRY EVENT MONITOR Routine 11/06/2024 9:10 AM CDT Chest pain, unspecified type TRANSTHORACIC ECHO (TTE) COMPLETE W DOPPLER/CF WO CONTRAST Routine 11/03/2024 9:59 AM CDT NM MPI SPECT (REST AND/OR STRESS) MULTIPLE STUDIES IP Routine 11/03/2024 7:15 AM CDT STRESS TEST FOR DUAL READ IP Routine 11/03/2024 6:40 AM CDT EGFR Routine 11/03/2024 2:19 AM CDT DIFFERENTIAL AUTO Routine 11/03/2024 2:1 9 AM CDT COMPREHENSIVE METABOLIC PANEL Routine 11/03/2024 2:19 AM CDT CBC WITH AUTO DIFFERENTIAL Routine 11/03/2024 2:19 AM CDT TROPONIN T HIGH-SENSITIVITY 6-HOUR Timed 11/02/2024 10:11 PM CDT TROPONIN T HIGH-SENSITIVITY 4-HR Timed 11/02/2024 9:03 PM CDT TROPONIN T HIGH-SENSITIVITY 2-HOUR Timed 11/02/2024 7:22 PM CDT XR CHEST PA LATERAL 2 VIEWS ED 11/02/2024 5:30 PM CDT URINALYSIS AND REFLEX TO MICROSCOPIC AND CULTURE STAT 11/02/2024 5:19 PM CDT EGFR STAT 11/02/2024 4:38 PM CDT DIFFERENTIAL AUTO STAT 11/02/2024 4:3 8 PM CDT TSH STAT 11/02/2024 4:38 PM CDT TROPONIN T HIGH-SENSITIVITY SERIES (BASELINE, 2HR, 4HR, 6HR) STAT 11/02/2024 4:38 PM CDT D-DIMER, QUANTITATIVE STAT 11/02/2024 4:38 PM CDT COMPREHENSIVE METABOLIC PANEL STAT 11/02/2024 4:38 PM CDT PRO B-TYPE NATRIURETIC PEPTIDE STAT 11/02/2024 4:38 PM CDT CBC WITH AUTO DIFFERENTIAL STAT 11/02/2024 4:38 PM CDT ECG 12-LEAD STAT 11/02/2024 4:31 PM CDT from Last 3 Months Results * MCT Mobile Cardiac Telemetry Event Monitor (11/06/2024 9:10 AM CDT) Anatomical Region Laterality Modality Electrocardiogra phy 11/06/2024 9:13 AM CDT Narrative 12/11/2024 4:21 PM CDT [address] [address] EVENT MONITOR Patient Name: DIANE RIVERO M : 2000 Study Date: 11/06/2024 9:13:24 AM Sex: F Tech: Ref Provider: HUBER RUTH Height(Cm): BSA: Weight(Kg): Order Provider: HUBER RUTH PROCEDURES: Event Report: Event Monitor Report. INDICATIONS: R07.9 Chest pain, unspecified. FINDINGS: CONCLUSIONS: 1. Predominant rhythm is normal sinus rhythm with a minimum heart rate of 45 beats per minute in sinus and a maximum heart rate of 175 beats per minute also in sinus. Average heart rate of 91 beats per minute. Heart rate was controlled 70% of the time, fast 28% of the time and slow 2% of the time. Total monitoring time of 8 days 11 hours 21 minutes. 2. Heart rate and rate variability is appropriate. 3. No prolonged pauses. 4. Rare PACs with 266 PACs corresponding to less than 1% total beats. 5. Rare PVCs with 63 PVCs corresponding to less than 1% of total beats. 6. There were 7 patient activated events most with symptoms of feeling tired/fatigued and also fluttering/skipped beats. All noted to be in sinus rhythm ranging in heart rate from 77 to 105 beats per minute with no significant findings. 7. There were 2 auto detected events and both noted to be in sinus tachycardia ranging in heart rate from 165-173 beats per minute. Electronically Signed By: Dr Hamilton Hansen 12/11/2024 4:15:04 PM CDT Procedure Note Hamilton Hansen MD - 12/11/[address] [place] [address] EVENT MONITOR Patient Name: DIANE RIVERO M : 2000 Study Date: 11/06/2024 9:13:24 AM Sex: F Tech: Ref Provider: HUBER RUTH Height(Cm): BSA: Weight(Kg): Order Provider: HUBER RUTH PROCEDURES: Event Report: Event Monitor Report. INDICATIONS: R07.9 Chest pain, unspecified. FINDINGS: CONCLUSIONS: 1. Predominant rhythm is normal sinus rhythm with a minimum heart rate of45 beats per minute in sinus and a maximum heart rate of 175 beats per minute also insinus. Average heart rate of 91 beats per minute. Heart rate was controlled 70% of the time, fast 28% of the time and slow2% of the time. Total monitoring time of 8 days 11 hours 21 minutes. 2. Heart rate and rate variability is appropriate. 3. No prolonged pauses. 4. Rare PACs with 266 PACs corresponding to less than 1% total beats. 5. Rare PVCs with 63 PVCs corresponding to less than 1% of total beats. 6. There were 7 patient activated events most with symptoms of feelingtired/fatigued and also fluttering/skipped beats. All noted to be in sinus rhythm ranging in heart rate from 77 to 105 beatsper minute with no significant findings. 7. There were 2 auto detected events and both noted to be in sinustachycardia ranging in heart rate from 165-173 beats per minute. Electronically Signed By: Dr Hamilton Hansen 12/11/2024 4:15:04 PM CDT us Huber Ruth MD CV CARDIAC SERVICES PROCEDUR ES Final Result * TRANSTHORACIC ECHO (TTE) COMPLETE W DOPPLER/CF WO CONTRAST (11/03/2024 9:59 AM CDT) Estimated EF 65 % CONS SCIMAGE Anatomical Region Laterality Modality Ultrasound 11/03/2024 9:24 AM CDT Narrative 11/03/2024 10:42 AM CDT [address] [place] [address] Echocardiogram Report Patient Name: DIANE RIVERO : 2000 Study Date: 11/03/2024 9:24:32 AM Gender: F Tech: TOLL COLLECTOR Location: [id number] Ref Provider: BASIL KENYON Height(Cm): 170 BSA: 2.62 Weight(Kg): 145.1 Quality: Adequate Order Provider: BASIL KENYON PROCEDURES: Echocardiographic Report: Transthoracic echocardiogram with complete 2D, M-Mode, and color Doppler examination. INDICATIONS: Chest Pain. MEASUREMENTS: 2D/MM Value Range Doppler Value Range EF Teich MM 72.0 % [ 54.0 - 74.0 ] SERGIO Vmax 3.40 cm2 Estimated EF 65 % AV Mean PG 2 mmHg LVIDd MM 5.40 cm [ 3.80 - 5.20 ] AV Peak Chris 0.98 m/s [ 1.00 - 1.70 ] LVIDs MM 3.10 cm [ 2.20 - 3.50 ] AV VTI 18.92 cm LVPWd MM 0.90 cm [ 0.60 - 0.90 ] LVOT Diam 2.29 cm IVSd MM 1.10 cm [ 0.60 - 0.90 ] LVOT Peak Chris 0.81 m/s [ 0.70 - 1.10 ] LA Dimension MM 5.90 cm [ 2.70 - 3.80 ] LVOT VTI 19.93 cm AoR Diam MM 3.05 cm [ 2.70 - 3.70 ] MV E Peak Chris 0.91 m/s [ 0.60 - 1.30 ] ACS MM 2.01 cm MV A Peak Chris 0.76 m/s [ 1.00 - 1.20 ] MV Mean PG 1 mmHg MV PHT 62 msec [ 20 - 100 ] MVA 3.60 MV Decel Time 183 msec [ 104 - 258 ] PV Peak Chris 0.81 m/s [ 0.40 - 0.80 ] AR Peak Chris 0.98 m/s TR Peak Chris 2.09 m/s [ 1.00 - 2.80 ] TR Peak PG 18 mmHg RVSP 21.00 mmHg [ 10.00 - 36.00 ] E` 0.07 m/s E/E` 12.77 [ <= 10.00 ] PA Pressure 21.00 mmHg [ 10.00 - 36.00 ] 2D/MM Value Range Doppler Value Range - FINDINGS: Atrial Septum: Normal atrial septum. Left Ventricle: Normal left ventricular systolic function with no focal wall motion abnormalities. Normal left ventricular size. Normal left ventricular wall thickness. Normal left ventricular diastolic function. Ejection Fraction is estimated to be 65 %. Left Atrium: The left atrium is normal in size. Right Ventricle: Normal right ventricular size. Normal right ventricular systolic function. Right Atrium: The right atrium is normal in size. Aortic Valve: Normal structure of the aortic valve. Mitral Valve: Normal structure of the mitral valve. Pulmonic Valve: Normal structure of the pulmonic valve. Tricuspid Valve: Normal right ventricular systolic pressure. Estimated peak RVSP is 25 mmHg. Mild tricuspid regurgitation. Pericardium: Normal pericardium with no significant pericardial effusion. Aorta: Normal aortic root. Sinus of Valsalva is normal. Aortic arch is normal. Descending aorta is normal. IVC: Normal size and normal respiratory collapse consistent with normal right atrial pressure (<5 mmHg). Pulmonary Artery: Normal pulmonary artery size. CONCLUSIONS: Normal left ventricular systolic function with no focal wall motion abnormalities. Normal left ventricular size. Normal left ventricular wall thickness. Normal left ventricular diastolic function. Ejection Fraction is estimated to be 65 %. Normal right ventricular systolic pressure. Estimated peak RVSP is 25 mmHg. Mild tricuspid regurgitation. Electronically Signed By: Maciel Yip MD 11/03/2024 10:41:59 AM CDT Procedure Note Maciel Yip MD - 11/03/[address] [address] Echocardiogram Report Patient Name: DIANE RIVERO : 2000 Study Date: 11/03/2024 9:24:32 AM Gender: F Tech: KARLY Location: [address] Provider: BASIL KENYON Height(Cm): 170 BSA: 2.62 Weight(Kg): 145.1 Quality: Adequate Order Provider: BASIL KENYON PROCEDURES: Echocardiographic Report: Transthoracic echocardiogram with complete 2D, M-Mode, and color Dopplerexamination. INDICATIONS: Chest Pain. MEASUREMENTS: 2D/MM Value Range Doppler ValueRange EF Teich MM 72.0 % [ 54.0 - 74.0 ] SERGIO Vmax 3.40cm2 Estimated EF 65 % AV Mean PG 2 mmHg LVIDd MM 5.40 cm [ 3.80 - 5.20 ] AV Peak Chris 0.98 m/s[ 1.00 - 1.70 ] LVIDs MM 3.10 cm [ 2.20 - 3.50 ] AV VTI 18.92cm LVPWd MM 0.90 cm [ 0.60 - 0.90 ] LVOT Diam 2.29cm IVSd MM 1.10 cm [ 0.60 - 0.90 ] LVOT Peak Chris 0.81 m/s[ 0.70 - 1.10 ] LA Dimension MM 5.90 cm [ 2.70 - 3.80 ] LVOT VTI 19.93cm AoR Diam MM 3.05 cm [ 2.70 - 3.70 ] MV E Peak Chris 0.91 m/s[ 0.60 - 1.30 ] ACS MM 2.01 cm MV A Peak Chris 0.76 m/s[ 1.00 - 1.20 ] MV Mean PG 1 mmHg MV PHT 62 msec [ 20 - 100 ] MVA 3.60 MV Decel Time 183 msec [ 104 - 258 ] PV Peak Chris 0.81 m/s [ 0.40 - 0.80 ] AR Peak Chris 0.98 m/s TR Peak Chris 2.09 m/s [ 1.00 - 2.80 ] TR Peak PG 18 mmHg RVSP 21.00 mmHg [ 10.00 - 36.00 ] E` 0.07 m/s E/E` 12.77 [ <= 10.00 ] PA Pressure 21.00 mmHg [ 10.00 - 36.00 ] 2D/MM Value Range Doppler ValueRange - FINDINGS: Atrial Septum: Normal atrial septum. Left Ventricle: Normal left ventricular systolic function with no focal wall motionabnormalities. Normal left ventricular size. Normal left ventricular wall thickness. Normal leftventricular diastolic function. Ejection Fraction is estimated to be 65 %. Left Atrium: The left atrium is normal in size. Right Ventricle: Normal right ventricular size. Normal right ventricular systolicfunction. Right Atrium: The right atrium is normal in size. Aortic Valve: Normal structure of the aortic valve. Mitral Valve: Normal structure of the mitral valve. Pulmonic Valve: Normal structure of the pulmonic valve. Tricuspid Valve: Normal right ventricular systolic pressure. Estimated peak RVSP is 25mmHg. Mild tricuspid regurgitation. Pericardium: Normal pericardium with no significant pericardial effusion. Aorta: Normal aortic root. Sinus of Valsalva is normal. Aortic arch is normal.Descending aorta is normal. IVC: Normal size and normal respiratory collapse consistent with normal rightatrial pressure (<5 mmHg). Pulmonary Artery: Normal pulmonary artery size. CONCLUSIONS: Normal left ventricular systolic function with no focal wall motionabnormalities. Normal left ventricular size. Normal left ventricular wall thickness. Normal leftventricular diastolic function. Ejection Fraction is estimated to be 65 %. Normal right ventricular systolic pressure. Estimated peak RVSP is 25mmHg. Mild tricuspid regurgitation. Electronically Signed By: Maciel Yip MD 11/03/2024 10:41:59 AM CDT Basil Kenyon MD CV ECHO PROCEDURES Final Result * NM MPI SPECT (Rest and/or Stress) Multiple Studies (11/03/2024 7:15 AM CDT) Anatomical Region Laterality Modality Body N/A Nuclear Medicine 11/03/2024 10:1 5 AM CDT Narrative 11/03/2024 10:20 AM CDT EXAM DESCRIPTION: NM MPI SPECT (REST AND/OR STRESS) MULTIPLE STUDIES REASON FOR STUDY: Ischemic symptoms, atypical, 0-1 risk factors, no prior testing (Age 18-49y) RADIOPHARMACEUTICAL: Rest: 10.7 mCi Tc-99m tetrofosmin via a right arm IV site. Stress: 31.5 mCi Tc-99m tetrofosmin via a right arm IV site. TECHNIQUE: Standard myocardial perfusion SPECT images were obtained after resting tracer injection. Subsequently, an intravenous infusion of 0.4 mg Lexiscan was performed. Standard myocardial perfusion SPECT images were obtained after tracer injection at the peak effect of the drug. COMPARISON: None. FINDINGS: There is a very extensive amount of soft tissue attenuation artifact. Post-stress prone imaging was not performed to improve image quality. On the post-stress gated polar map there is a 30% defect at the apex extending into the distal inferolateral wall. On the post-stress nongated there is an approximate 10% defect at the distal anterior wall extending towards the apex. On the rest images these areas of diminished activity are normal with separate small areas of diminished activity at the anteroseptal and inferior wall. Comparing the post-stress and rest images, the polar maps suggest a 10% reversible defect predominantly the distal anterior wall and apex. Although this reversible area of diminished activity is statistically most likely due to differential attenuation artifact, the possibility of LAD ischemia can not be excluded on this examination. No evidence of transient ischemic dilation. The left ventricular cavity size is normal. Normal wall motion and wall thickening. There is a normal ejection fraction calculated at 69%. IMPRESSION: 1. Study quality substantially diminished due to extensive uncorrected soft tissue attenuation. 2. Reversible 10% mild severity defect distal anterior wall and apex. Although statistically this is most likely due to artifact from differential attenuation, the possibility of LAD ischemia can not be excluded. 3. Normal wall motion and normal ejection fraction. THIS IS AN ELECTRONICALLY VERIFIED FINAL REPORT 11/03/2024 10:20 AM - Electronically signed by Neftali Taylor M.D. CH: BIENVENIDO Report ID: [id number] Reading Location: [id number] Procedure Note Neftali Taylor MD - 11/03/2024 EXAM DESCRIPTION: NM MPI SPECT (REST AND/OR STRESS) MULTIPLE STUDIES REASON FOR STUDY: Ischemic symptoms, atypical, 0-1 risk factors, no prior testing (Age 18-49y) RADIOPHARMACEUTICAL: Rest: 10.7 mCi Tc-99m tetrofosmin via a right armIV site. Stress: 31.5 mCi Tc-99m tetrofosmin via a right arm IV site. TECHNIQUE: Standard myocardial perfusion SPECT images were obtained after resting tracer injection. Subsequently, an intravenous infusion of 0.4mg Lexiscan was performed. Standard myocardial perfusion SPECT images were obtained after tracer injection at the peak effect of the drug. COMPARISON: None. FINDINGS: There is a very extensive amount of soft tissue attenuation artifact. Post-stress prone imaging was not performed to improve image quality. On the post-stress gated polar map there is a 30% defect at the apexextending into the distal inferolateral wall. On the post-stress nongated there isan approximate 10% defect at the distal anterior wall extending towards theapex. On the rest images these areas of diminished activity are normal withseparate small areas of diminished activity at the anteroseptal and inferiorwall. Comparing the post-stress and rest images, the polar maps suggest a 10% reversible defect predominantly the distal anterior wall and apex.Although this reversible area of diminished activity is statistically most likelydue to differential attenuation artifact, the possibility of LAD ischemia cannot be excluded on this examination. No evidence of transient ischemic dilation. The left ventricular cavity size is normal. Normal wall motion and wall thickening. There is a normal ejectionfraction calculated at 69%. IMPRESSION: 1. Study quality substantially diminished due to extensive uncorrectedsoft tissue attenuation. 2. Reversible 10% mild severity defect distal anterior wall and apex. Although statistically this is most likely due to artifact fromdifferential attenuation, the possibility of LAD ischemia can not be excluded. 3. Normal wall motion and normal ejection fraction. THIS IS AN ELECTRONICALLY VERIFIED FINAL REPORT 11/03/2024 10:20 AM - Electronically signed by Neftali Taylor M.D. CH: BIENVENIDO Report ID: [id number] Reading Location: [place] [address] us Basil Kenyon MD [facility] PROCEDURES Final Result * Stress Test for Myocardial Perfusion (11/03/2024 6:40 AM CDT) Anatomical Region Laterality Modality Other 11/03/2024 6:40 AM CDT Narrative 11/03/2024 10:03 [place] [address] Lexiscan Report Patient Name: DIANE RIVERO M : 2000 Study Date: 11/03/2024 6:40:00 AM Sex: F Tech: Harman Cassidy [place] Location: [id number] Ref Provider: BASIL KENYON Height(Cm): 170 BSA: 3.96 Weight(Kg): 332 Heart Rate: 166 Order Provider: BASIL KENYON PROCEDURES: Pharmacologic SPECT Report.: Myocardial perfusion imaging with Sestamibi SPECT at rest and post regadenoson (Lexiscan) infusion. INDICATIONS: Chest Pain. FINDINGS: Procedure Data: Resting HR 68 bpm Peak HR: 111 bpm Predicted Maximal HR 195 bpm Target HR: 166 bpm Percent Max Predicted HR Achieved: 56.92 % Baseline BP: 154/100 mmHg Peak BP: 202/81 mmHg Exercise Time: 00:10 Medications: Free Text. Performed By: Supervising Physician: The Supervising Physician is hamilton hansen. Reason for Termination: Lexiscan protocol complete. Resting ECG: Normal sinus rhythm at 70 beats per minute, normal axis. Post Pharm ECG: No diagnostic ST changes. Arrhythmia: No arrhythmias seen. Cardiac Symptoms With Stress: Symptoms with stress were None. Exam Interpreted: Read by . CONCLUSIONS: 1. Negative Lexiscan pharmacologic stress test for chest pain or EKG changes. 2. Nuclear images are pending and they will be reported separately. Electronically Signed By: Dr Hamilton Hansen 11/03/2024 9:14:21 AM CDT Procedure Note Hamilton Hansen MD - 11/03/[address] [address] [employer] Report Patient Name: DIANE RIVERO M : 2000 Study Date: 11/03/2024 6:40:00 AM Sex: F Tech: Harman Wright Location: [id number] Ref Provider: BASIL KENYON Height(Cm): 170 BSA: 3.96 Weight(Kg): 332 Heart Rate: 166 Order Provider: BASIL KENYON PROCEDURES: Pharmacologic SPECT Report.: Myocardial perfusion imaging with Sestamibi SPECT at rest and postregadenoson (Lexiscan) infusion. INDICATIONS: Chest Pain. FINDINGS: Procedure Data: Resting HR 68 bpm Peak HR: 111 bpm Predicted Maximal HR 195 bpm Target HR: 166 bpm Percent Max Predicted HR Achieved: 56.92 % Baseline BP: 154/100 mmHg Peak BP: 202/81 mmHg Exercise Time: 00:10 Medications: Free Text. Performed By: Supervising Physician: The Supervising Physician is hamilton hansen. Reason for Termination: Lexiscan protocol complete. Resting ECG: Normal sinus rhythm at 70 beats per minute, normal axis. Post Pharm ECG: No diagnostic ST changes. Arrhythmia: No arrhythmias seen. Cardiac Symptoms With Stress: Symptoms with stress were None. Exam Interpreted: Read by . CONCLUSIONS: 1. Negative Lexiscan pharmacologic stress test for chest pain or EKGchanges. 2. Nuclear images are pending and they will be reported separately. Electronically Signed By: Dr Hamilton Hansen 11/03/2024 9:14:21 AM CDT us Basil Keynon MD CV STRESS PROCEDURES Final Resu lt * eGFR (11/03/2024 2:19 AM CDT) eGFR >90 >=60 mL/min/1. 73 m2 Comment: Interpretive Data Reference Interval Normal >/= 90 mL/min/1.73m2 Mildly decreased* 60 - 89 mL/min/1.73m2 Mildly to moderately decreased 45 - 59 mL/min/1.73m2 Moderately to severely decreased 30 - 44 mL/min/1.73m2 Severely decreased 15 - 29 mL/min/1.73m2 Kidney Failure < 15 mL/min/1.73m2 *Relative to young adult level Estimated glomerular filtration rate is determined by the 2020 CKD-EPI equation recommended by the National Kidney Foundation (A Unifying Approach to GFR Estimation: Recommendations of the NKF-ASK Task Force on Reassessing the Inclusion of Race in Diagnosing Kidney Disease, JASN 202). The CKD-EPI equation should not be used for patients with unstable renal function and has not been validated in children and those over 70. Current interpretive data was last reviewed 2020. Blood 11/03/2024 2:19 AM CDT 11/03/2024 3:01 AM CDT us Basil Kenyon MD LAB BLOOD ORDERABLES Final Resu lt [facility] ([place]) [facility] [place] [address] * (ABNORMAL) Differential, auto (11/03/2024 2:19 AM CDT) Neutrophil abs 1.36(L) 1.50 - 6.50 K/cumm Imm gran abs 0.01 0.00 - 0.10 K/cumm [facility] ([place]) Lymphocyte abs 2.13 0.80 - 3.30 K/cumm [facility] ([place]) Monocyte abs 0.43 0.20 - 0.80 K/cumm [facility] ([place]) Eosinophil abs 0.12 0.00 - 0.50 K/cumm [facility] ([place]) Basophil abs 0.01 0.00 - 0.10 K/cumm [facility] ([place]) Neutrophil pct 33.5 % [facility] ([place]) Comment: Interpretive Data Percent cell count reference ranges are not reported, since discordance with absolute values may lead to misinterpretation of CBC data. Current Interpretive Data was last revised on 2017. Imm gran pct 0.2 % [facility] ([place]) Comment: Interpretive Data Percent cell count reference ranges are not reported, since discordance with absolute values may lead to misinterpretation of CBC data. Current Interpretive Data was last revised on 2017. Lymphocyte pct 52.5 % [facility] ([place]) Comment: Interpretive Data Percent cell count reference ranges are not reported, since discordance with absolute values may lead to misinterpretation of CBC data. Current Interpretive Data was last revised on 2017. Monocyte pct 10.6 % [facility] ([place]) Comment: Interpretive Data Percent cell count reference ranges are not reported, since discordance with absolute values may lead to misinterpretation of CBC data. Current Interpretive Data was last revised on 2017. Eosinophil pct 3.0 % [facility] ([place]) Comment: Interpretive Data Percent cell count reference ranges are not reported, since discordance with absolute values may lead to misinterpretation of CBC data. Current Interpretive Data was last revised on 2017. Basophil pct 0.2 % [facility] ([place]) Comment: Interpretive Data Percent cell count reference ranges are not reported, since discordance with absolute values may lead to misinterpretation of CBC data. Current Interpretive Data was last revised on 2017. Blood 11/03/2024 2:19 AM CDT 11/03/2024 3:01 AM CDT Basil Kenyon MD LAB BLOOD ORDERABLES Final Resu lt [facility] ([place] Department [place] [address] * (ABNORMAL) CBC with auto differential (11/03/2024 2:19 AM CDT) WBC 4.06 3.80 - 9.90 K/cumm Hgb 12.5 11.9 - 15.5 g/dL [facility] ([place]) Hct 39.1 35.6 - 45.5 % [facility]) Plt 236 150 - 400 K/cumm [facility] ([place]) MPV 11.2 9.1 - 12.3 fL [facility]) RBC 4.44 3.90 - 5.20 M/cumm [facility] ([place]) MCV 88.1 81.3 - 96.4 fL [facility]) MCH 28.2 27.1 - 33.3 pg [facility] ([place]) MCHC 32.0(L) 32.3 - 35.7 g/dL [facility]) RDW CV 12.4 11.1 - 14.9 % [facility]) RDW SD 39.6 35.7 - 48.1 fL [facility]) NRBC abs 0.00 0.00 - 0.01 K/cumm [facility] ([place]) Blood 11/03/2024 2:19 AM CDT 11/03/2024 3:01 AM CDT Basil Kenyon MD LAB BLOOD ORDERABLES Final Resu lt [facility] Department [place] [address] * (ABNORMAL) Comprehensive metabolic panel (11/03/2024 2:19 AM CDT) Sodium 139 135 - 145 mmol/L [facility] ([place]) Potassium, pl 3.4 3.3 - 4.9 mmol/L [facility] ([place]) Chloride 104 97 - 110 mmol/L [facility]) CO2 27 22 - 32 mmol/L [facility] ([place]) Anion gap 8 2 - 15 mmol/L [facility] ([place]) BUN 9 6 - 25 mg/dL [facility]) Creatinine 0.76 0.60 - 1.10 mg/dL [facility]) Glucose 94 70 - 199 mg/dL [facility] ([place]) Comment: Interpretive Data Fasting glucose >/= 126 mg/dl is diagnostic for diabetes. Fasting is defined as no caloric intake for at least 8 hours. Fasting glucose between 100 mg/dl to 125 mg/dl is diagnostic of prediabetes. In a patient with classic symptoms of hyperglycemia or hyperglycemic crisis, a random glucose >/= 200 mg/dl is diagnostic for diabetes. In the absence of unequivocal hyperglycemia, results should be confirmed by repeat testing. The classification and Diagnosis of Diabetes Diabetes Care 202; 46: S19-S40. Current interpretive data was last revised 2022. Calcium 8.9 8.5 - 10.3 mg/dL [facility]) Bilirubin, total 0.2 0.1 - 1.2 mg/dL [facility] ([place]) Protein, pl 5.9(L) 6.5 - 8.5 g/dL [facility] ([place]) Albumin 3.6 3.5 - 5.0 g/dL [facility]) Alk phos 76 40 - 130 Units/L [facility]) ALT 15 7 - 45 Units/L [facility]) AST 21 10 - 45 Units/L [facility] ([place]) Blood 11/03/2024 2:19 AM CDT 11/03/2024 3:01 AM CDT Basil Kenyon MD LAB BLOOD ORDERABLES Final Resu lt [facility] ([place] [address] [facility] [place] [address] * Troponin T high-sensitivity 6-hour (11/02/2024 10:11 PM CDT) Trop T hs <6 <=14 ng/L [facility] ([place]) Comment: Interpretive Data For further hscTnT resources including the diagnostic algorithm and an aid in interpretation, copy and paste this link: https://nrl.testcatSlidely.org/show/hsTrop Current Interpretive Data last revised 2019. Trop T hs delta 0 ng/L [facility] ([place]) Trop T hs interp Insignificant [facility] ([place]) Blood 11/02/2024 10:1 1 PM CDT 11/02/2024 10:15 PM CDT Cathleen Grimaldo NP LAB BLOOD ORDERABLES Final Result [facility] ([place]) [address] [facility] [place] [employer] [address] * Troponin T high-sensitivity 4-hour (11/02/2024 9:03 PM CDT) Trop T hs <6 <=14 ng/L [facility] ([place]) Comment: Interpretive Data For further hscTnT resources including the diagnostic algorithm and an aid in interpretation, copy and paste this link: https://nrl.testSwatchcloud.org/show/hsTrop Current Interpretive Data last revised 2019. Trop T hs delta 0 ng/L [facility] ([place]) Trop T hs interp Insignificant [facility] ([place]) Blood 11/02/2024 9:03 PM CDT 11/02/2024 9:24 PM CDT Cathleen Grimaldo NP LAB BLOOD ORDERABLES Final Result [facility] ([place] [address] [facility] [place] [address] * Troponin T high-sensitivity 2-hour (11/02/2024 7:22 PM CDT) Trop T hs <6 <=14 ng/L [facility] ([place]) Comment: Interpretive Data For further hscTnT resources including the diagnostic algorithm and an aid in interpretation, copy and paste this link: https://nrl.testcatalog.org/show/hsTrop Current Interpretive Data last revised 2019. Trop T hs delta 0 ng/L [facility] ([place]) Trop T hs interp Insignificant [facility] ([place]) Blood 11/02/2024 7:22 PM CDT 11/02/2024 7:32 PM CDT Cathleen Grimaldo NP LAB BLOOD ORDERABLES Final Result Performing Organization Address [facility] Co de Phone Number [facility] ([place]) [address] [facility] [place] [address] * XR Chest Pa Lateral 2 Vw (11/02/2024 5:30 PM CDT) Anatomical Region Laterality Modality Body, Chest N/A Computed Radiogr aphy 11/02/2024 6:11 PM CDT Narrative 11/02/2024 6:12 PM CDT EXAM DESCRIPTION: XR CHEST PA LATERAL 2 VIEWS REASON FOR STUDY: Chest pain palpitations when she wakes up x3-4 days. Pt reports hx of narcolepsy, and sleep apnea. TECHNIQUE: Frontal and lateral radiographic view(s) of the chest. COMPARISON: None available. FINDINGS: LUNGS: No focal opacity, pleural effusion, or pneumothorax. HEART/MEDIASTINUM: Cardiac silhouette normal in size. Mediastinal and hilar contours appear normal. LINES/TUBES: None. BONES: No acute osseous abnormality. IMPRESSION: No acute cardiopulmonary abnormality. THIS IS AN ELECTRONICALLY VERIFIED FINAL REPORT 11/02/2024 6:12 PM - Electronically signed by Eric Granado M.D. MF: [id number] Report ID: [id number] Reading Location: [id number] Procedure Note Eric Granado, DO - 11/02/2024 EXAM DESCRIPTION: XR CHEST PA LATERAL 2 VIEWS REASON FOR STUDY: Chest pain palpitations when she wakes up x3-4 days. Pt reports hx of narcolepsy, and sleep apnea. TECHNIQUE: Frontal and lateral radiographic view(s) of the chest. COMPARISON: None available. FINDINGS: LUNGS: No focal opacity, pleural effusion, or pneumothorax. HEART/MEDIASTINUM: Cardiac silhouette normal in size. Mediastinal andhilar contours appear normal. LINES/TUBES: None. BONES: No acute osseous abnormality. IMPRESSION: No acute cardiopulmonary abnormality. THIS IS AN ELECTRONICALLY VERIFIED FINAL REPORT 11/02/2024 6:12 PM - Electronically signed by Eric Granado M.D. MF: [id number] Report ID: [id number] Reading Location: [place] [address] Cathleen Qing Grimaldo TOLL COLLECTOR IMG XR PROCEDURES Fi nal Result * Urinalysis reflex to microscopic and culture Urine (11/02/2024 5:19 PM CDT) Color, ur Yellow Yellow Clarity, ur Clear Clear [facility] ([place]) Specific gravity, ur 1.028 1.003 - 1.030 [facility] ([place]) pH, urine 6.0 [facility] ([place]) Comment: Interpretive Data U rine pH is affected by diet, medications, systemic acid-base disturbances, and renal tubular function. pH may affect urinary stone formation. For example, urine pH below 6.0 may help reduce the tendency for calcium phosphate stones and pH greater than 6.0 may reduce the tendency for uric acid stone formation. Source: [facility] [employer] Current Interpretive Data was last revised on 2017 Protein, ur ql Trace Negative [facility] ([place]) Glucose, ur ql Negative Negative [facility] ([place]) Ketones, ur Negative Negative [facility] ([place]) Bilirubin, ur Negative Negative [facility] ([place]) Blood, ur Negative Negative [facility] ([place]) Urobilinogen, ur <2.0 <2.0 mg/dL [facility] ([place]) Nitrite, ur Negative Negative [facility] ([place]) Leukocyte esterase, ur Negative Negative [facility] ([place]) UA reflex comment Reflex conditions for microscopic UA and culture not met. [facility] Urine 11/02/2024 5:19 PM CDT 11/02/2024 5:23 PM CDT Cathleen Grimaldo NP LAB MICROBIOLOGY - G ENERAL ORDERABLES Final Result Performing Organization Address City/[facility]/ZIP Co de Phone Number [facility] ([place]) [address] [place] [address] [employer] [place] [employer] [address] * Troponin T high-sensitivity series (baseline, 2hr, 4hr, 6hr) (11/02/2024 4:38 PM CDT) Pathologist [facility] Trop T hs <6 <=14 ng/L [facility] ([place]) Comment: Interpretive Data For further hscTnT resources including the diagnostic algorithm and an aid in interpretation, copy and paste this link: https://nrl.testcatalog.org/show/hsTrop Current Interpretive Data last revised 2019. Blood 11/02/2024 4:38 PM CDT 11/02/2024 5:21 PM CDT Cathleen Grimaldo NP LAB BLOOD ORDERABLES Final Result [facility] Department [place] [address] * eGFR (11/02/2024 4:38 PM CDT) [facility] eGFR >90 >=60 mL/min/1. 73 m2 Comment: Interpretive Data Reference Interval Normal >/= 90 mL/min/1.73m2 Mildly decreased* 60 - 89 mL/min/1.73m2 Mildly to moderately decreased 45 - 59 mL/min/1.73m2 Moderately to severely decreased 30 - 44 mL/min/1.73m2 Severely decreased 15 - 29 mL/min/1.73m2 Kidney Failure < 15 mL/min/1.73m2 *Relative to young adult level Estimated glomerular filtration rate is determined by the 2020 CKD-EPI equation recommended by the National Kidney Foundation (A Unifying Approach to GFR Estimation: Recommendations of the NKF-ASK Task Force on Reassessing the Inclusion of Race in Diagnosing Kidney Disease, JASN 2020). The CKD-EPI equation should not be used for patients with unstable renal function and has not been validated in children and those over 70. Current interpretive data was last reviewed 2020. Blood 11/02/2024 4:38 PM CDT 11/02/2024 5:21 PM CDT us Cathleen Grimaldo NP LAB BLOOD ORDERABLES Final Result [facility] ([place]) [address] [facility] [place] [address] * Differential, auto (11/02/2024 4:38 PM CDT) Pathologist [facility] Neutrophil abs 1.77 1.50 - 6.50 K/cumm Imm gran abs 0.01 0.00 - 0.10 K/cumm [facility] ([place]) Lymphocyte abs 2.13 0.80 - 3.30 K/cumm [facility] ([place]) Monocyte abs 0.50 0.20 - 0.80 K/cumm [facility] ([place]) Eosinophil abs 0.10 0.00 - 0.50 K/cumm [facility] ([place]) Basophil abs 0.02 0.00 - 0.10 K/cumm [facility] ([place]) Neutrophil pct 39.2 % [facility] ([place]) Comment: Interpretive Data Percent cell count reference ranges are not reported, since discordance with absolute values may lead to misinterpretation of CBC data. Current Interpretive Data was last revised on 2017. Imm gran pct 0.2 % [facility] ([place]) Comment: Interpretive Data Percent cell count reference ranges are not reported, since discordance with absolute values may lead to misinterpretation of CBC data. Current Interpretive Data was last revised on 2017. Lymphocyte pct 47.0 % [facility] ([place]) Comment: Interpretive Data Percent cell count reference ranges are not reported, since discordance with absolute values may lead to misinterpretation of CBC data. Current Interpretive Data was last revised on 2017. Monocyte pct 11.0 % [facility] ([place]) Comment: Interpretive Data Percent cell count reference ranges are not reported, since discordance with absolute values may lead to misinterpretation of CBC data. Current Interpretive Data was last revised on 2017. Eosinophil pct 2.2 % [facility] ([place] Comment: Interpretive Data Percent cell count reference ranges are not reported, since discordance with absolute values may lead to misinterpretation of CBC data. Current Interpretive Data was last revised on 2017. Basophil pct 0.4 % [facility] ([place]) Comment: Interpretive Data Percent cell count reference ranges are not reported, since discordance with absolute values may lead to misinterpretation of CBC data. Current Interpretive Data was last revised on 2017. Blood 11/02/2024 4:38 PM CDT 11/02/2024 5:21 PM CDT Cathleen Grimaldo TOLL COLLECTOR LAB BLOOD ORDERABLES Final Result [facility] ([place] [place] [address] * Pro B-type natriuretic peptide (11/02/2024 4:38 PM CDT) NT-proBNP <36 <=300 pg/mL [facility] ([place]) Comment: Interpretive Comments: A. Dyspnea in Acute Care Setting All Ages: < 300 pg/ml, acute heart failure unlikely. < 50 yrs: 300 - 450 pg/ml, further investigation warranted. > 450 pg/ml, acute heart failure likely. 50 - 74 yrs: 300 - 900 pg/ml, further investigation warranted. > 900 pg/ml, acute heart failure likely . > or = 75 yrs: 450 - 1800 pg/ml, further investigation warranted. > 1800 pg/ml, acute heart failure likely. B. Non-acute Setting < 75 yrs < 125 pg/ml, rules out heart failure. > or = 125 pg/ml, further investigation warranted. > or = 75 yrs < 450 pg/ml, rules out heart failure. > or = 450 pg/ml, further investigation warranted. - Knowledge of each individual patient's NT-proBNP range may be more useful than using similar cut-points for every patient. Please note that marked elevations in NT-proBNP levels may be observed in state other than Left Ventricular Congestive Failure, including: acute coronary syndromes, right heart strain/failure (including pulmonary embolism and cor pulmonale), critical illness, renal failure, as well as advanced age. - References: 1. Ana ESCAMILLA et.al. Eur Heart J. 2006:27:330-337. 2. Gregg RW, [place]iza CHAMPION. J. AM Reji Cardiol: Cardiovasc Imag. 2009;2: 216- 225. Interpretive Data Last Revised Date: 2017. Blood 11/02/2024 4:38 PM CDT 11/02/2024 5:21 PM CDT Cathleen Grimaldo NP LAB BLOOD ORDERABLES Final Result [facility] ([place]) [address] [facility] Department of Laboratories [place], [place] [id number] * CBC with auto differential (11/02/2024 4:38 PM CDT) WBC 4.53 3.80 - 9.90 K/cumm Hgb 13.2 11.9 - 15.5 g/dL [facility] ([place]) Hct 40.3 35.6 - 45.5 % [facility] ([place]) Plt 251 150 - 400 K/cumm [facility] ([place]) MPV 11.1 9.1 - 12.3 fL [facility] ([place]) RBC 4.66 3.90 - 5.20 M/cumm [facility] ([place]) MCV 86.5 81.3 - 96.4 fL [facility] ([place]) MCH 28.3 27.1 - 33.3 pg [facility] ([place]) MCHC 32.8 32.3 - 35.7 g/dL [facility] ([place]) RDW CV 12.6 11.1 - 14.9 % [facility] ([place]) RDW SD 39.9 35.7 - 48.1 fL [facility] ([place]) NRBC abs 0.00 0.00 - 0.01 K/cumm [facility] ([place]) Blood 11/02/2024 4:38 PM CDT 11/02/2024 5:21 PM CDT Cathleen Grimaldo NP LAB BLOOD ORDERABLES Final Result [facility] ([place] [address] [facility] [place] [address] * D-dimer, quantitative (11/02/2024 4:38 PM CDT) D-Dimer 355 <=499 ng/mL FEU [facility] ([place]) Comment: Interpretive data FDA approved the D-dimer, in conjunction with a low or moderate pretest probability score, to exclude venous thromboembolic events (VTE) (PE and DVT) in outpatients when the D-dimer result is < 500 ng/ml FEU. Evidence supports using an age-adjusted D-dimer cut-off for outpatients older than 50 (age x 10) to improve specificity without sacrificing sensitivity. Example: age 68, VTE cut-off 680 ng/ml FEU. References; Schouten HT et al. Brit Med J. 2013;346:f2492. [place] SOTOMAYOR et al. Annals Int Med. 2015;163:701-11. Current interpretive data was last revised on 2019. Blood 11/02/2024 4:38 PM CDT 11/02/2024 5:21 PM CDT Cathleen Grimaldo NP LAB BLOOD ORDERABLES Final Result [facility] ([place]) [address] [facility] [place] [address] * TSH (11/02/2024 4:38 PM CDT) Thyroid Stimulating Hormone 1.60 0.30 - 4.20 mcIUnit/mL [facility] ([place]) Blood 11/02/2024 4:38 PM CDT 11/02/2024 5:21 PM CDT Cathleen Grimaldo NP LAB BLOOD ORDERABLES Final Result Performing Organization Address City/[facility] Co de Phone Number [facility] ([place]) [address] [facility] [place] [address] * Comprehensive metabolic panel (11/02/2024 4:38 PM CDT) Sodium 135 135 - 145 mmol/L [facility] ([place]) Potassium, pl 3.8 3.3 - 4.9 mmol/L [facility] ([place]) Chloride 102 97 - 110 mmol/L [facility] ([place]) CO2 24 22 - 32 mmol/L [facility] Anion gap 9 2 - 15 mmol/L [facility] BUN 7 6 - 25 mg/dL [facility] ([place]) Creatinine 0.79 0.60 - 1.10 mg/dL [facility] ([place]) Glucose 80 70 - 199 mg/dL [facility] Comment: Interpretive Data Fasting glucose >/= 126 mg/dl is diagnostic for diabetes. Fasting is defined as no caloric intake for at least 8 hours. Fasting glucose between 100 mg/dl to 125 mg/dl is diagnostic of prediabetes. In a patient with classic symptoms of hyperglycemia or hyperglycemic crisis, a random glucose >/= 200 mg/dl is diagnostic for diabetes. In the absence of unequivocal hyperglycemia, results should be confirmed by repeat testing. The classification and Diagnosis of Diabetes Diabetes Care 202; 46: S19-S40. Current interpretive data was last revised 2022. Calcium 9.2 8.5 - 10.3 mg/dL [facility] ([place]) Bilirubin, total <0.2 0.1 - 1.2 mg/dL [facility] ([place]) Protein, pl 6.6 6.5 - 8.5 g/dL [facility] ([place]) Albumin 3.8 3.5 - 5.0 g/dL [facility] ([place]) Alk phos 83 40 - 130 Units/L [facility] ([place]) ALT 18 7 - 45 Units/L [facility] ([place]) AST 22 10 - 45 Units/L [facility] ([place]) Blood 11/02/2024 4:38 PM CDT 11/02/2024 5:21 PM CDT us Cathleen Grimaldo NP LAB BLOOD ORDERABLES Final Result Performing Organization Address City/[facility]/ZIP Co de Phone Number [facility] ([place]) [address] [facility] [place] [address] * ECG 12 lead (11/02/2024 4:31 PM CDT) 11/02/2024 4:31 PM CDT Narrative [facility] - 11/03/2024 9:45 AM CDT Vent Rate: 80 bpm RR Interval: 749 msec AR Interval: 186 msec QRS Duration: 92 msec QT Interval: 367 msec QTC Interval: 402 msec P-R-T [place]: 37 - 33 - 33 degrees IMPRESSION: SINUS RHYTHM LOW QRS VOLTAGE IN PRECORDIAL LEADS [QRS DEFLECTION < 1.0 mV IN CHEST LEADS] BORDERLINE ECG Electronically Signed By: Maurice Estrada MD [facility] us Basil Kenyon MD ECG ORDERABLES Final Result Performing Organization Address City/[facility]/ZIP Co de Phone Number [facility] [employer] 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
--- OUTSIDE RECORDS SUMMARY | 2025-01-31 08:22 | XMS_ITS | Clinical Summary ---
Author Organization [facility] Address [address] [place] [address] Care Team Providers Care Can Intake Worker Name Role Phone Brynn Perez MD Primary Care Provider [phone] Source Comments [facility],non-owned Affiliates and Associated Physician Practices is amultiple site organization consisting of ambulatory clinics and hospital sitesin [place], [place], [place] and [place]. This disclosure is being madepursuant to the Care Everywhere program and may not contain all information available regarding this patient. Last updated 17.[facility] [place] Allergies No known active allergies Medications * Be aware that medications may not be up to date on this document. Alwaysverify current medications with the patient. urea (CARMOL;VANAMIDE) 40 % creamIndications:Ac anthosis nigricans Apply to affected area two times daily. 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 30DS 120 mL 11 9 Active Active Problems Problem Noted Date Diagnosed [...] 8 cmh20 Syncope and collapse 03/06/2011 Immunizations Immunization Administration Dates Next Due INFLUENZA VACCINE, QUADR. 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 Gender Identity Not on file Sexual Orientation [...] 11:14 AM CDT Height 174 cm (5' 8.5) 10/13/2018 11:1 4 AM CDT Body Mass Index 50.24 10/13/2018 11:14 AM CDT Plan of Treatment Health Maintenance Due Date Last Done Comments HIV SCREENING 05/04/2014 HPV VACCINE (1 - 3-dose series) 05/04/2014 CHLAMYDIA/GONORRHEA SCREENING 2015 DIABETES-HGB A1C 04/27/2016 10/29/2015, 11/2015, 01/17/2015, Additional history exists HEPATITIS C SCREENING 04/30/2017 DIABETES-FOOT EXAM WITH MONOFILAMENT 05/04/2017 DIABETES-SERUM CREATININE 05/04/20172015, 04/27/2013, 03/15/2012, Additional history exists DTAP/TDAP/TD VACCINES (1 - Tdap) 05/04/2018 HEPATITIS B VACCINE (1 of 3 - 19+ 3-dose series) 05/04/2018 DEPRESSION SCREENING 02/16/2024 DIABETES - URINE PROTEIN SCREENING 02/16/2024 10/29/2015, 08/02/2014, 04/27/2013, Additional history exists COVID-19 VACCINE ( - 2024- season) 2024 INFLUENZA VACCINE (#1) 2024 01/17/2015 ZOSTER VACCINE (1 of 2) 05/04/2049 HIB VACCINE Aged Out No longer eligi ble based on patient's age to complete this topic MENINGOCOCCAL (Group B) VACCINE SHARED DECISION-MAKING Aged Out No longer eligible based on patient's age to complete this topic MENINGOCOCCAL GROUPS A/C/Y/W VACCINE Aged Out No longer eligible based on patient's age to complete this topic PNEUMOCOCCAL VACCINE Aged Out No long er eligible based on patient's age to complete this topic Procedures Procedure Name Priority Date/Time Associated Diagnosis Comments HEMOGLOBIN A1C - POCT (IP) BEAKER Routine 10/29/2015 11:54 AM CDT Type 2 diabetes mellitus without complication, without long-term current use of insulin MICROALB/CREAT RATIO URINE RANDOM PANEL Routine 10/29/2015 11:52 AM CDT Type 2 diabetes mellitus without complication, without long-term current use of insulin BASIC METABOLIC PANEL (CALCIUM TOTAL) Routine 10/29/2015 11:52 AM CDT Type 2 diabetes mellitus without complication, without long-term current use of insulin from Last 3 Months or Most Recently Relevant to Health Maintenance Results * (ABNORMAL) HEMOGLOBIN A1C - POCT (IP) SANJANA (10/29/2015 11:54 AM CDT) Hemoglobin A1c POCT 6.6(A) 3.4 - 6.1 % [facility] POCT TESTING QC Verified Yes Yes [facility] PO CT TESTING Blood specimen (specimen) BLOOD SPECIMEN / Unknown 10/29/2015 11:54 AM CDT Irlanda Li MD LAB - POINT OF CARE ORDERABLES Final Result Performing Organization Address City/State/[facility] Co de Phone Number [facility] POCT TESTING [facility] [address] [phone] * MICROALB/CREAT RATIO URINE RANDOM PANEL (10/29/2015 11:52 AM CDT) Creatinine Urine 176.93 mg/dL 10/29/2015 1:46 PM CDT [facility] Microalbumin Urine <0.5 <1.7 mg/dL 10/29/2015 1:46 PM CDT [facility] Microalbumin/Crea tinine Ratio <30 mg/g 10/29/2015 1:46 PM CDT [facility] Comment: Microalb/Creatinine Ratio= <3 Urine URINE SPECIMEN OBTAINED BY CLEAN CATCH PROCEDURE / Unknown 10/29/2015 11:52 AM CDT 10/29/2015 12:10 PM CDT Irlanda Li MD LAB - URINE CHEMISTRY ORDERABLE S Final Result [facility] [place] [address] * (ABNORMAL) BASIC METABOLIC PANEL (CALCIUM TOTAL) (10/29/2015 11:52 AM CDT) Glucose 115(H) 70 - 105 mg/dL 10/29/2015 12:52 PM T [facility] Sodium 140 136 - 145 mmol/L 10/29/2015 12:52 PM [facility] Potassium 3.8 3.5 - 5.1 mmol/L 10/29/2015 12:52 PM [facility] Chloride 103 98 - 107 mmol/L 10/29/2015 12:52 PM [facility] CO2 27 20 - 28 mmol/L 10/29/2015 12:52 PM [facility] Calcium 9.37 9.08 - 10.48 mg/dL 10/29/2015 12:52 PM [facility] Anion Gap 10 5 - 20 mmol/L 10/29/2015 12:52 PM [facility] BUN 9.3 5.3 - 18.7 mg/dL 10/29/2015 12:52 PM [facility] Creatinine 0.82 0.61 - 1.07 mg/dL 10/29/2015 12:52 PM [facility] eGFR by MDRD mL/min/1.7 3m2 10/29/2015 12:52 PM [facility] Comment: eGFR calculations are not performed for children under 18 years old. eGFR by MDRD mL/min/1.7 3m2 10/29/2015 12:52 PM [facility] Comment: eGFR calculations are not performed for children under 18 years old. Blood BLOOD SPECIMEN / Unknown 10/29/2015 11:52 AM CDT 10/29/2015 12:09 PM CDT us Irlanda Li MD LAB - CHEMISTRY ORDERABLES Fi[place] woods Result [facility] [address] [place] [address] from Last 3 Months or Most Recently Relevant to Health Maintenance Insurance [facility] [employer] * Guarantor: KATELYN PINTO Account Type Relation to Patient Date of Phone Billing Address Personal/Family Other [address] [place] [address] [facility] MEDICAID - OUT OF STATE * Guarantor: JAYDEN SANDERS Account Type Relation to Patient Date of Phone Billing Address Personal/Family Other [address] [place] [address] [facility] * Guarantor: SANDERS,JAYDEN Account Type Relation to Patient Date of Phone Billing Address Personal/Family Aunt [phone] [place] [address] Care Teams Can Intake Worker Relationship Specialty Start Date End Date Brynn Perez MD [address] [place] [address] PCP - General 06/16/21
--- OUTSIDE RECORDS SUMMARY | 2025-01-31 08:22 | XMS_ITS | Clinical Summary ---
Author Organization [facility] Address [address] [place] [address] Care Team Providers Care Assessment Analyst Name Role Phone None, Provider MD Primary [...] 5:38 PM CDT Height 170.2 cm (5' 7) 10/31/2021 5:38 PM CDT Body Mass Index [...] Additional history exists COVID-19 Vaccine ( season) 2024 04/22/2020 Influenza Adult (#1) 2024 11/22/2017, 12/12/2016, 11/22/2015, Additional history exists Pneumococcal Vaccine: Pediatrics (0 to 5 Years) and At-Risk Patients (6 to 49 Years) Aged Out 11/01/2000, 04/30/2000, 1999 No longer eligible based on patient's age to complete this topic Hepatitis B Vaccines Completed 04/30/2010, 04/30/2000, 1999, Additional history exists HPV Vaccines Completed 05/07/2011, 12/17, 11/04/2010 Meningococcal Vaccine Completed 07/09/2015, 011 Hepatitis A Vaccines Aged Out No long er eligible based on patient's age to complete this topic RSV Immunizations Under 20 Months Aged Out No longer eligible based on patient's age to complete this topic Insurance MEDICAID [employer] [address] [id number] Care Teams Assessment Analyst Relationship Specialty Start Date End Date None, Provider, PCP - General 10/31/21
--- NOTE | 2025-01-31 08:27 | ED_ITS ---
HPI - General Adult General Chief complaint: Back Pain/Injury Stated complaint: LOWER BACK PAIN Time Seen by Provider: 01/31/25 08:15 History of Present Illness HPI narrative: 24-year-old female present to the emergency department for evaluation for lower back pain. Patient reports he did have a fall and back injury a few months ago. Patient states he does have intermittent back pain. Patient was having some increased back pain going to bed last night and felt the pain worsened due to her toxic and turning during her sleep. Patient did take Tylenol for pain control. Patient denies any associated numbness or weakness or change in bowel or bladder habits. Patient states that when she lifts her legs this does cause back pain but patient denies any pain radiating down her legs. Related Data Allergies Allergy/AdvReac Type Severity Reaction Status Date / Time No Known Allergies Allergy Verified 01/31/25 08:10 Review of Systems Review of Systems: All systems reviewed & are unremarkable except as noted in HPI and below PMFSH Past Medical History Medical History Patient denies significant medical history Surgical History Surgical History No pertinent past surgical history Social History Social History Smoking status: Never smoker Exam Narrative: APPEARANCE: Well appearing, no pain, no distress, well-nourished. HEAD: normocephalic, atraumatic. EYES: PERRLA/EOMI, conjunctivae clear. NOSE: Normal no drainage EARS:TMS clear with good light reflex. THROAT: Pharynx clear, no exudate. NECK: Supple. No adenopathy, no masses. RESPIRATORY: Airway patent, respirations nonlabored. Clear to auscultation bilaterally, no rales, rhonchi, wheezing. CARDIOVASCULAR: Regular rate and rhythm without murmurs rubs or gallops. ABDOMINAL: Soft, nontender, nondistended, normal bowel sounds MUSCULOSKELETAL: Lower back tenderness to palpation NEURO: Alert. Cranial nerves II through XII intact. Good gait. Good coordination SKIN: Warm, dry. Normal Color Course Vital Signs Vital signs: Vital Signs Temperature 97.6 F 01/31/25 08:15 Pulse Rate 90 12/17/25 08:15 Respiratory Rate 18 01/31/25 08:15 Blood Pressure 118/84 01/31/25 08:15 Pulse Oximetry 100 01/31/25 08:15 Oxygen Delivery Room Air 01/31/25 08:15 Temperature 97.8 F 01/31/25 10:00 Pulse Rate 72 01/31/25 10:00 Respiratory Rate 16 01/31/25 10:00 Blood Pressure 106/65 01/31/25 10:00 Pulse Oximetry 100 01/31/25 10:00 Oxygen Delivery Room Air 01/31/25 08:15 MDM MDM Narrative Medical decision making narrative: 24-year-old female presenting to emergency department for evaluation for back pain. Patient does have a remote history of a back injury. Patient denies any recent falls or injuries but was having increased back pain last night. Patient reports medications did help for emergency department. X-ray was negative for acute findings but did show an old sacral fracture. Patient is neurologically intact. Patient was updated results of workup patient was comfortable plan for discharge home. Differential Diagnosis Differential Diagnosis: Lumbar fracture, lumbar contusion, muscular injury, sciatica Imaging Data Radiologist's impression: ITS Impressions Lumbar Spine X-Ray 01/31/25 08:47 IMPRESSION: 1. Age-indeterminate sacral fracture. 2. No other acute abnormality. Discharge Plan Discharge Clinical Impression: Low back pain Patient Disposition: Home Condition: Stable Instructions: Antibiotic Form, Back Pain (ED) Additional Instructions: Naproxen for pain control. Flexeril for muscle spasm. Tylenol for additional pain control. Have close follow-up with your primary care physician. If you have any worsening symptoms then please call or return to the emergency department. Patient Language: Grenadian Prescriptions: New naproxen [Naprosyn] 500 mg tablet 500 mg PO BID 5 Days Qty: 10 0RF cyclobenzaprine 10 mg tablet 10 mg PO BID PRN (Reason: muscle spasm) Qty: 14 0RF No Action amoxicillin-pot clavulanate 875-125 mg tablet 1 tablet PO Q12H Qty: 14 0RF ofloxacin 0.3 % drops 10 drp EACH EAR DAILY 7 Days Qty: 10 0RF Follow-up/Referrals: PHYSICIAN,CERAMIC MOLD DESIGNER [Primary Care Provider, Internal Medicine] Stand Alone Forms: Work/School Release IP
[2025-01-31] MEDS: CYCLOBENZAPRINE HCL 10 MG TABLET PO (08:34)
[2025-01-31] MEDS: KETOROLAC (*BKC) 60 MG/2 ML VIAL IM (08:34)
[2025-01-31 10:00] VITALS: BP 106/65; PULSE 72; RESP 16; TEMP 36.6; O2SAT 100
--- OUTSIDE RECORDS SUMMARY | 2025-01-31 10:17 | XMS_ITS | Clinical Summary ---
Author Organization [facility] Address [address] [place] [address] Care Team Providers Care Fabric Worker Name Role Phone None, Provider MD Primary [...] Insurance MEDICAID [employer] [address] [id number] Care Teams Fabric Worker Relationship Specialty Start Date End Date None, Provider, PCP - General 10/31/21
--- OUTSIDE RECORDS SUMMARY | 2025-01-31 10:18 | XMS_ITS | Clinical Summary ---
Author Organization [facility] Address [address] [place] [address] Care Team Providers Care Certified Alcohol Counselor Name Role Phone Brynn Perez MD Primary Care Provider [phone] Source Comments [facility],non-owned Affiliates and Associated Physician Practices is amultiple site organization consisting of ambulatory clinics and hospital sitesin [place], [place], [place] and [place]. This disclosure is being madepursuant to the Care Everywhere program and may not contain all information available regarding this patient. 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 Gender Identity Not on file Sexual Orientation [...] POCT 6.6(A) 3.4 - 6.1 % [facility] POCT TESTING QC Verified Yes Yes [facility] PO CT TESTING Blood specimen (specimen) BLOOD SPECIMEN / Unknown 10/29/2015 11:54 AM CDT Irlanda Li MD LAB - POINT OF CARE ORDERABLES Final Result Performing Organization Address City/State/[facility] Co de Phone Number [facility] POCT TESTING [facility] [phone] * MICROALB/CREAT RATIO URINE RANDOM PANEL (10/29/2015 11:52 AM CDT) Creatinine Urine 176.93 mg/dL 10/29/2015 1:46 PM CDT [facility] Microalbumin Urine <0.5 <1.7 mg/dL 10/29/2015 1:46 PM CDT [facility] Microalbumin/Crea tinine Ratio <30 mg/g 10/29/2015 1:46 PM CDT [facility] Comment: Microalb/Creatinine Ratio= <3 Urine URINE SPECIMEN OBTAINED BY CLEAN CATCH PROCEDURE / Unknown 10/29/2015 11:52 AM CDT 10/29/2015 12:10 PM CDT Irlanda Li MD LAB - URINE CHEMISTRY ORDERABLE S Final Result [facility] [place] [address] * (ABNORMAL) BASIC METABOLIC PANEL (CALCIUM TOTAL) (10/29/2015 11:52 AM CDT) Glucose 115(H) 70 - 105 mg/dL 10/29/2015 12:52 PM T [facility] Sodium 140 136 - 145 mmol/L 10/29/2015 12:52 PM [facility] Potassium 3.8 3.5 - 5.1 mmol/L 10/29/2015 12:52 PM [facility] Chloride 103 98 - 107 mmol/L 10/29/2015 12:52 PM [facility] CO2 27 20 - 28 mmol/L 10/29/2015 12:52 PM [facility] Calcium 9.37 9.08 - 10.48 mg/dL 10/29/2015 12:52 PM [facility] Anion Gap 10 5 - 20 mmol/L 10/29/2015 12:52 PM [facility] BUN 9.3 5.3 - 18.7 mg/dL 10/29/2015 12:52 PM [facility] Creatinine 0.82 0.61 - 1.07 mg/dL 10/29/2015 12:52 PM [facility] eGFR by MDRD mL/min/1.7 3m2 10/29/2015 12:52 PM [facility] Comment: eGFR calculations are not performed for children under 18 years old. eGFR by MDRD mL/min/1.7 3m2 10/29/2015 12:52 PM [facility] Comment: eGFR calculations are not performed for children under 18 years old. Blood BLOOD SPECIMEN / Unknown 10/29/2015 11:52 AM CDT 10/29/2015 12:09 PM CDT us Irlanda Li MD LAB - CHEMISTRY ORDERABLES Fiorella woods Result [facility] [address] [place] [address] from Last 3 Months or Most Recently Relevant to Health Maintenance Insurance [facility] A[employer]NA * Guarantor: KATELYN PINTO Account Type Relation to Patient Date of Phone Billing Address Personal/Family Other [address] [place] [address] [facility] MEDICAID - OUT OF STATE * Guarantor: JAYDEN SANDERS Account Type Relation to Patient Date of Phone Billing Address Personal/Family Other [address] [place] [address] [facility] * Guarantor: SANDERS,JAYDEN Account Type Relation to Patient Date of Phone Billing Address Personal/Family Aunt 1976 [address] [place] [address] Care Teams Certified Alcohol Counselor Relationship Specialty Start Date End Date Brynn Perez MD [address] [place] [address] PCP - General 06/16/21
--- OUTSIDE RECORDS SUMMARY | 2025-01-31 10:18 | XMS_ITS | Clinical Summary ---
Author Organization [facility] Address [address] [place] [address] Care Team Providers Care Stenographer Print Shop Name Role Phone Wayne Richter NP Primary Care Provider [phone] Allergies No known active allergies Medications metoprolol [...] Department Care Team Description 12/28/2024 1:15 PM INVESTIGATOR CASH SHORTAGE Office Visit [place] at [address] [place] [address] Wayne Richter NP Chest pain, unspecified type (Primary Dx); Palpitations; VIN (obstructive sleep apnea); Morbid obesity (HCC); Hyperlipidemia, unspecified hyperlipidemia type; Dyslipidemia 12/01/2024 12:00 PM CDT - 12/01/2024 12:01 PM CDT Emergency [facility] Emergency Department [address] [place] [address] aZy Taylor MD Other chest pain (Primary Dx) Discharge Disposition: Discharge to home or self care 11/06/2024 9:00 AM CDT - 11/06/2024 11:59 PM CDT Hospital Encounter [facility] Cardiology [address] [place] [address] Chest pain, unspecified type Discharge Disposition: Discharge to home or self care 11/03/2024 Orders Only [facility] Cardiology [address] [place] [address] Pema La 11/02/2024 4:57 PM CDT - 11/03/2024 2:29 PM CDT Hospital Encounter [facility] IMU [address] [place] [address] Basil Kenyon MD Burt, Jonathan S., MD [...] often do you attend chur ch or pentecostal services? Patient declined 11/03/2024 Do you belong to any clubs o r organizations such as orthodoxy groups, unions, fraternal or athletic groups, or [...] any time in the past 12 m [facility], were you homeless or living in a fdc (including now)? No 11/03/2024 [facility] Utilities Answer Date Recorded In the past [...] on file Legal Sex Female 7:02 PM INVESTIGATOR CASH SHORTAGE Gender Identity Not on file Sexual Orientation Not on file Last Filed Vital Signs Vital Sign Reading Time Taken Comments Blood Pressure 114/76 12/28/2024 1:12 PM INVESTIGATOR CASH SHORTAGE Pulse 89 12/28/2024 1:12 PM INVESTIGATOR CASH SHORTAGE Temperature 36.1 C (97 F) 12/01/2024 11:34 AM CDT Respiratory Rate 18 12/28/2024 1:12 PM INVESTIGATOR CASH SHORTAGE Oxygen Saturation 99% 12/01/2024 11:34 AM CDT Inhaled Oxygen Concentration - - Weight 150.1 kg (331 lb) 12/28/2024 1:12 PM INVESTIGATOR CASH SHORTAGE Height 170.2 cm (5' 7) 12/28/2024 1:12 PM INVESTIGATOR CASH SHORTAGE Body Mass Index 51.84 12/28/2024 1:12 PM INVESTIGATOR CASH SHORTAGE Plan of Treatment Health Maintenance Due Date [...] AM CDT Narrative 12/11/2024 4:21 PM CDT [address] [address] EVENT MONITOR Patient Name: DIANE RIVERO M [...] Procedure Note Hamilton Hansen MD - 12/11/[address] [place] [address] EVENT MONITOR Patient Name: DIANE RIVERO M [...] AM CDT Narrative 11/03/2024 10:42 AM CDT [address] [place] [address] Echocardiogram Report Patient Name: DIANE RIVERO : 2000 Study Date: 11/03/2024 9:24:32 AM Gender: F Tech: SENIOR ELECTRICAL ENGINEER Location: [id number] Ref Provider: BASIL KENYON Height(Cm): 170 BSA: [...] 0.81 m/s [ 0.40 - 0.80 ] CO Peak Chris 0.98 m/s TR Peak Chris [...] Procedure Note Maciel Yip MD - 11/03/[address] [address] Echocardiogram Report Patient Name: DIANE RIVERO : 2000 Study Date: 11/03/2024 9:24:32 AM Gender: F Tech: KARLY Location: [address] Provider: BASIL KENYON Height(Cm): 170 BSA: [...] 0.81 m/s [ 0.40 - 0.80 ] CO Peak Chris 0.98 m/s TR Peak Chris [...] Neftali Taylor M.D. CH: BIENVENIDO Report ID: [id number] Reading Location: [id number] Procedure Note Neftali Taylor MD - 11/03/2024 [...] Neftali Taylor M.D. CH: BIENVENIDO Report ID: [id number] Reading Location: [place] [address] us Basil Kenyon MD [facility] PROCEDURES Final Result * Stress Test for Myocardial Perfusion (11/03/2024 6:40 AM CDT) Anatomical Region Laterality Modality Other 11/03/2024 6:40 AM CDT Narrative 11/03/2024 10:03 [place] [address] [employer] Report Patient Name: DIANE RIVERO M : 2000 Study Date: 11/03/2024 6:40:00 AM Sex: F Tech: Harman Cassidy [place] Location: [id number] Ref Provider: BASIL KENYON Height(Cm): 170 BSA: [...] Procedure Note Hamilton Hansen MD - 11/03/[address] [address] [employer] Report Patient Name: DIANE RIVERO M : 2000 Study Date: 11/03/2024 6:40:00 AM Sex: F Tech: Harman Wright Location: [id number] Ref Provider: BASIL KENYON Height(Cm): 170 BSA: [...] Hansen 11/03/2024 9:14:21 AM CDT us Basil Kenyon MD CV STRESS PROCEDURES Final Resu lt [...] Final Resu lt [facility] ([place]) 1 [facility] [place] [address] * (ABNORMAL) Differential, auto (11/03/2024 2:19 AM [...] Final Resu lt [facility] ([place]) 1 [facility] [place] [address] * (ABNORMAL) CBC with auto differential (11/03/2024 [...] Final Resu lt [facility] ([place]) 1 [facility] [place] [address] * (ABNORMAL) Comprehensive metabolic panel (11/03/2024 2:19 [...] Final Resu lt [facility] ([place]) 1 [facility] [place] [address] * Troponin T high-sensitivity 6-hour (11/02/2024 10:11 PM CDT) Trop T hs <6 <=14 ng/L [facility] ([place]) Comment: Interpretive Data For further hscTnT resources including the diagnostic algorithm and an aid in interpretation, copy and paste this link: https://nrl.testcatRefulgent Software.org/show/hsTrop Current Interpretive Data last revised 2019. Trop T hs delta 0 ng/L [facility] ([place]) Trop T hs interp Insignificant [facility] ([place]) Blood 11/02/2024 10:1 1 PM CDT 11/02/2024 10:15 PM CDT Cathleen Grimaldo NP LAB BLOOD ORDERABLES Final Result [facility] ([place]) 1 [facility] [place] [address] * Troponin T high-sensitivity 4-hour (11/02/2024 9:03 PM CDT) Trop T hs <6 <=14 ng/L [facility] ([place]) Comment: Interpretive Data For further hscTnT resources including the diagnostic algorithm and an aid in interpretation, copy and paste this link: https://nrl.testArmor5.org/show/hsTrop Current Interpretive Data last revised 2019. Trop T hs delta 0 ng/L [facility] ([place]) Trop T hs interp Insignificant [facility] ([place]) Blood 11/02/2024 9:03 PM CDT 11/02/2024 9:24 PM CDT Cathleen Grimaldo NP LAB BLOOD ORDERABLES Final Result [facility] ([place]) 1 [facility] [place] [address] * Troponin T high-sensitivity 2-hour (11/02/2024 7:22 PM CDT) Trop T hs <6 <=14 ng/L [facility] ([place]) Comment: Interpretive Data For further hscTnT resources including the diagnostic algorithm and an aid in interpretation, copy and paste this link: https://nrl.testcatalog.org/show/hsTrop Current Interpretive Data last revised 2019. Trop T hs delta 0 ng/L [facility] ([place]) Trop T hs interp Insignificant [facility] ([place]) Blood 11/02/2024 7:22 PM CDT 11/02/2024 7:32 PM CDT Cathleen Grimaldo NP LAB BLOOD ORDERABLES Final Result Performing Organization Address [facility] Co de Phone Number [facility] ([place]) 1 [facility] [place] [address] * XR Chest Pa Lateral 2 Vw [...] Eric Granado M.D. MF: KATHRIN Report ID: [id number] Reading Location: [id number] Procedure Note Eric Granado, DO - 11/02/2024 [...] Eric Granado M.D. MF: KATHRIN Report ID: [id number] Reading Location: [place] [address] Cathleen Qing Grimaldo SENIOR ELECTRICAL ENGINEER IMG XR PROCEDURES Fi nal Result * Urinalysis reflex to microscopic and culture Urine (11/02/2024 5:19 PM CDT) Color, ur Yellow Yellow Clarity, ur Clear Clear [facility] ([place]) Specific gravity, ur 1.028 1.003 - 1.030 [facility] ([place]) pH, urine 6.0 [facility] ([place]) Comment: Interpretive Data U rine pH is affected by diet, medications, systemic acid-base disturbances, and renal tubular function. pH may affect urinary stone formation. For example, urine pH below 6.0 may help reduce the tendency for calcium phosphate stones and pH greater than 6.0 may reduce the tendency for uric acid stone formation. Source: [facility] [employer] Current Interpretive Data was last revised on [...] for microscopic UA and culture not met. [facility] Urine 11/02/2024 5:19 PM CDT 11/02/2024 5:23 PM CDT Cathleen Grimaldo NP LAB MICROBIOLOGY - G ENERAL ORDERABLES Final Result Performing Organization Address City/[facility]/ZIP Co de Phone Number [facility] ([place]) [address] [place] [address] [place] [address] * Troponin T high-sensitivity series (baseline, 2hr, 4hr, 6hr) (11/02/2024 4:38 PM CDT) Pathologist [facility] Trop T hs <6 <=14 ng/L [facility] ([place]) Comment: Interpretive Data For further hscTnT resources including the diagnostic algorithm and an aid in interpretation, copy and paste this link: https://nrl.testcatalog.org/show/hsTrop Current Interpretive Data last revised 2019. Blood 11/02/2024 4:38 PM CDT 11/02/2024 5:21 PM CDT Cathleen Grimaldo NP LAB BLOOD ORDERABLES Final Result [facility] ([place]) 1 [facility] [place] [address] * eGFR (11/02/2024 4:38 PM CDT) [facility] eGFR >90 >=60 mL/min/1. 73 m2 Comment: [...] Grimaldo NP LAB BLOOD ORDERABLES Final Result [facility] ([place]) 1 [facility] Department [place] [address] * Differential, auto (11/02/2024 4:38 PM CDT) Pathologist [facility] Neutrophil abs 1.77 1.50 - 6.50 K/cumm Imm gran abs 0.01 0.00 - 0.10 K/cumm [facility] ([place]) Lymphocyte abs 2.13 0.80 - 3.30 K/cumm [facility] ([place]) Monocyte abs 0.50 0.20 - 0.80 K/cumm [facility] ([place]) Eosinophil abs 0.10 0.00 - 0.50 K/cumm [facility] ([place]) Basophil abs 0.02 0.00 - 0.10 K/cumm [facility] ([place]) Neutrophil pct 39.2 % [facility] ([place]) Comment: Interpretive Data Percent cell count reference [...] CDT 11/02/2024 5:21 PM CDT Cathleen Grimaldo SENIOR ELECTRICAL ENGINEER LAB BLOOD ORDERABLES Final Result [facility] ([place]) 1 [facility] Department [place] [address] * Pro B-type natriuretic peptide (11/02/2024 4:38 PM CDT) NT-proBNP <36 <=300 pg/mL [facility] ([place]) Comment: Interpretive Comments: A. Dyspnea in Acute [...] NP LAB BLOOD ORDERABLES Final Result [facility] ([place]) 1 [facility] Department of Laboratories [place], [place] [id number] * CBC with auto differential (11/02/2024 4:38 PM CDT) WBC 4.53 3.80 - 9.90 K/cumm Hgb 13.2 11.9 - 15.5 g/dL [facility] ([place]) Hct 40.3 35.6 - 45.5 % [facility] ([place]) Plt 251 150 - 400 K/cumm [facility] ([place]) MPV 11.1 9.1 - 12.3 fL [facility] [...] ORDERABLES Final Result [facility] ([place]) 1 [facility] [place] [address] * D-dimer, quantitative (11/02/2024 4:38 PM CDT) D-Dimer 355 <=499 ng/mL FEU [facility] ([place]) Comment: Interpretive data FDA approved the [...] ORDERABLES Final Result [facility] ([place]) 1 [facility] [place] [address] * TSH (11/02/2024 4:38 PM CDT) Thyroid Stimulating Hormone 1.60 0.30 - 4.20 mcIUnit/mL [facility] ([place]) Blood 11/02/2024 4:38 PM CDT 11/02/2024 5:21 PM CDT Cathleen Grimaldo NP LAB BLOOD ORDERABLES Final Result Performing Organization Address City/[facility] Co de Phone Number [facility] ([place]) 1 [facility] [place] [address] * Comprehensive metabolic panel (11/02/2024 4:38 PM CDT) Sodium 135 135 - 145 mmol/L [facility] ([place]) Potassium, pl 3.8 3.3 - 4.9 mmol/L [facility] ([place]) Chloride 102 97 - 110 mmol/L [facility] ([place]) CO2 24 22 - 32 mmol/L [facility] Anion gap 9 2 - 15 mmol/L [facility] BUN 7 6 - 25 mg/dL [facility] ([place]) Creatinine 0.79 0.60 - 1.10 mg/dL [facility] ([place]) Glucose 80 70 - 199 mg/dL [facility] ([place] Comment: Interpretive Data [...] BLOOD ORDERABLES Final Result Performing Organization Address City/[facility]/ZIP Co de Phone Number [facility] ([place]) 1 [facility] Department [place] [address] * ECG 12 lead (11/02/2024 4:31 PM CDT) 11/02/2024 4:31 PM CDT Narrative [facility] - 11/03/2024 9:45 AM CDT Vent Rate: 80 bpm RR Interval: 749 msec CO Interval: 186 msec QRS Duration: 92 msec QT Interval: 367 msec QTC Interval: 402 msec P-R-T [place]: 37 - 33 - 33 degrees IMPRESSION: SINUS RHYTHM LOW QRS VOLTAGE IN PRECORDIAL LEADS [QRS DEFLECTION < 1.0 mV IN CHEST LEADS] BORDERLINE ECG Electronically Signed By: Maurice Estrada MD [facility] us Basil Kenyon MD ECG ORDERABLES Final Result Performing Organization Address City/[facility]/ZIP Co de Phone Number [facility] [employer] [facility] from Last 3 Months Advance Directives For more information, please contact: [phone] * Full Code (Latest Code Status on File) Date Activated Date Inactivated Comments 11/02/2024 7:37 PM 11/03/2024 6:29 PM Care Teams Stenographer Print Shop Relationship Specialty Start Date End Date Wayne Richter NP [address] [place] [address] DR CHICAS [address] [place] [id number] PCP - General Internal Medicine 12/28/24
== END 2025-01-31 10:04 | disposition home or self-care (01) ==
LOC: ANHED 09:19
PROVIDERS: Emergency Provider Emergency Medicine
DX: M54.50 Low back pain, unspecified (principal)
CPT/HCPCS: 72100; 96372; 99283; A9270; J1885